=== PATIENT | male | born 1980 | race Caucasian/White ===

== ENCOUNTER 2018-09-21 16:07 | Emergency (ER) | payer OTHER ==
--- NOTE | 2018-09-21 17:12 | RAD REPORT ---
EXAM DESCRIPTION: CT - Stone Protocol - 09/21/2018 4:44 pm CLINICAL HISTORY: Abdominal pain. COMPARISON: 2011 TECHNIQUE: Computed axial tomography of the abdomen pelvis was obtained without oral or IV contrast. Lack of IV and oral contrast limits evaluation of solid organs, bowel, and vessels. Coronal reformat funmilayo images were obtained and reviewed. All CT scans are performed using dose optimization technique as appropriate and may include automated exposure control or mA/KV adjustment according to patient size. FINDINGS: A renal calculus is not seen. An ureteral calculus is not noted. A bladder calculus is not present. Fatty liver. Cholecystectomy Spleen, pancreas and adrenals appear grossly normal There is no evidence of diverticulitis. The appendix appears normal Spondylolysis L5 IMPRESSION: Negative for a genitourinary calculus
--- NOTE | 2018-09-21 17:33 | EDPHYS ---
Physician Documentation [facility] Name: Simon Sauceda Jr Age: 38 yrs Sex: Male : 1980 Arrival Date: 09/21/2018 Time: 16:11 Bed 19 Private MD: Geovani Pop H ED Physician Sergey Melendrez HPI: 09/21 16:48 This 38 yrs old Male presents to ER via Ambulatory with complaints of ps1 Abdominal Pain. 16:48 patient presenting with 2 days of flank pain. Worse this morning. Pain is dull and ps1 localized to right flank. No fever. s/p yeni remotely. Pt went to [facility] and was seen and evaluated for same and had labs done. No WBC. No UTI. Patient left because CT scanner was done and did not want to be transferred. . Historical: - Allergies: 16:22 No Known Allergies; tw2 - Home Meds: 16:22 None [Active]; tw2 - PMHx: 16:22 Enlarged Heart; Asthma; Anemia; fatty liver; Kidney stones; tw2 - PSHx: 16:22 Cholecystectomy; kidney stone; tw2 - Immunization history:: Adult Immunizations. - Social history:: Smoking status: . - Ebola Screening: : Patient denies travel to an Ebola-affected area in the 21 days before illness onset. ROS: 16:48 Constitutional: Negative for fever, chills, and weight loss, Eyes: Negative for injury, ps1 pain, redness, and discharge, Cardiovascular: Negative for chest pain, palpitations, and edema, Respiratory: Negative for shortness of breath, cough, wheezing, and pleuritic chest pain, Abdomen/GI: Negative for abdominal pain, nausea, vomiting, diarrhea, and constipation, MS/Extremity: Negative for injury and deformity, Skin: Negative for injury, rash, and discoloration, Neuro: Negative for headache, weakness, numbness, tingling, and seizure. 16:48 : Positive for flank pain. Exam: 16:48 Constitutional: This is a well developed, well nourished patient who is awake, alert, ps1 and in no acute distress. Head/Face: Normocephalic, atraumatic. Eyes: Pupils equal round and reactive to light, extra-ocular motions intact. Lids and lashes normal. Conjunctiva and sclera are non-icteric and not injected. Chest/axilla: Normal chest wall appearance and motion. Nontender with no deformity. No lesions are appreciated. Cardiovascular: Regular rate and rhythm. No gallops, murmurs, or rubs. Normal PMI, no JVD. No pulse deficits. Respiratory: Lungs have equal breath sounds bilaterally, clear to auscultation and percussion. No rales, rhonchi or wheezes noted. No increased work of breathing, no retractions or nasal flaring. Abdomen/GI: Soft, non-tender, with normal bowel sounds. No distension or tympany. No guarding or rebound. No evidence of tenderness throughout. Skin: Warm, dry with normal turgor. Normal color with no rashes, no lesions, and no evidence of cellulitis. MS/ Extremity: Pulses equal, no cyanosis. Neurovascular intact. Full, normal range of motion. Neuro: Awake and alert, GCS 15, oriented to person, place, time, and situation. Cranial nerves II-XII grossly intact. Sensory grossly intact. Psych: Awake, alert, with orientation to person, place and time. Behavior, mood, and affect are within normal limits. Vital Signs: 16:21 BP 138 / 83; Pulse 89; Resp 17; Temp 97.8; Pulse Ox 97% on R/A; Weight 106.59 kg (R); tw2 Height 5 ft. 5 in. (165.10 cm) (R); Pain 6/10; 17:46 BP 141 / 79; Pulse 79; Resp 16; Pulse Ox 98% ; bp 16:21 Body Mass Index 39.11 (106.59 kg, 165.10 cm) tw2 MDM: 16:46 Patient medically screened. ps1 17:34 Data reviewed: vital signs, nurses notes, diagnostic data from outside facility, CBC, ps1 electrolytes, urinalysis, radiologic studies, CT scan, and as a result, I will discharge patient. Counseling: I had a detailed discussion with the patient and/or guardian regarding: the historical points, exam findings, and any diagnostic results supporting the discharge/admit diagnosis, radiology results, the need for outpatient follow up. 09/21 16:31 Order name: CT Stone Protocol; Complete Time: 17:28 ps1 Administered Medications: No medications were administered Disposition: 09/21/18 17:31 Discharged to Home. Impression: flank pain. - Condition is Stable. - Discharge Instructions: Abdominal Pain, Adult. - Prescriptions for ketorolac 10 mg Oral tablet - take 1 tablet by ORAL route every 4-6 hours not to exceed 40mg in 24hrs for up to 5 days total use; 15 tablet. Robaxin 500 mg Oral Tablet - take 2 tablet by ORAL route every 6 hours As needed; 40 tablet. Medrol (Karsten) 4 mg Oral Tablets, Dose Pack - take 1 tablet by ORAL route as directed - follow package instructions; 1 packet. - Medication Reconciliation Form, Thank You Letter, Antibiotic Education, Prescription Opioid Use form. - Follow up: Geovani Pop DO; When: As needed; Reason: Recheck today's complaints, Continuance of care, Re-evaluation by your physician. Follow up: Emergency Department; When: As needed; Reason: Worsening of condition. - Problem is new. - Symptoms have improved. Signatures: Dispatcher [employer] EDMS Shannan Rubio RN RN tw2 Robi Hernandez RN RN bp Sergey Melendrez MD MD ps1 Corrections: (The following items were deleted from the chart) 17:47 17:31 09/21/2018 17:31 Discharged to Home. Impression: flank pain. Condition is Stable. bp Forms are Medication Reconciliation Form, Thank You Letter, Antibiotic Education, Prescription Opioid Use. Follow up: Geovani Pop; When: As needed; Reason: Recheck today's complaints, Continuance of care, Re-evaluation by your physician. Follow up: Emergency Department; When: As needed; Reason: Worsening of condition. Problem is new. Symptoms have improved. ps1
--- NOTE | 2018-09-21 17:33 | ER ---
Nurse's Notes [facility] Name: Simon Sauceda Jr Age: 38 yrs Sex: Male : 1980 Arrival Date: 09/21/2018 Time: 16:11 Bed 19 Private MD: Geovani Pop H Diagnosis: flank pain Presentation: 09/21 16:18 Presenting complaint: Patient states: i got a knee the stomach yesterday, the pain tw2 subsided then this morning when i woke up it was bad, then after work today it started to get worse, i went to [facility] and they pissed me off having sat there for over 2 hours and they wanted to transfer me because their CT was down, denies blood in stool or urine. Transition of care: patient was not received from another setting of care. Onset of symptoms was September 21, 2018. Risk Assessment: Do you want to hurt yourself or someone else? Patient reports no desire to harm self or others. Initial Sepsis Screen: Does the patient meet any 2 criteria? No. Patient's initial sepsis screen is negative. Does the patient have a suspected source of infection? No. Patient's initial sepsis screen is negative. Note pt eating chips and drinking in lobby, asked if he could go get his food, pt instructed no food or drinks at this time. Care prior to arrival: None. 16:18 Method Of Arrival: Ambulatory tw2 16:18 Acuity: ESTER 3 tw2 Triage Assessment: 16:21 General: Appears in no apparent distress. Behavior is calm, cooperative, appropriate tw2 for age. Pain: Complains of pain in right lower quadrant. GI: Abdomen is round non-distended, Reports lower abdominal pain, upper abdominal pain, "stabbing pain". Historical: - Allergies: 16:22 No Known Allergies; tw2 - Home Meds: 16:22 None [Active]; tw2 - PMHx: 16:22 Enlarged Heart; Asthma; Anemia; fatty liver; Kidney stones; tw2 - PSHx: 16:22 Cholecystectomy; kidney stone; tw2 - Immunization history:: Adult Immunizations. - Social history:: Smoking status: . - Ebola Screening: : Patient denies travel to an Ebola-affected area in the 21 days before illness onset. Screenin:50 Abuse screen: Denies threats or abuse. Denies injuries from another. Nutritional bp screening: No deficits noted. Tuberculosis screening: No symptoms or risk factors identified. Fall Risk None identified. Assessment: 16:25 General: Appears in no apparent distress. comfortable, Behavior is calm, cooperative, bp appropriate for age. Pain: Complains of pain in abdomen. Neuro: Level of Consciousness is awake, alert, obeys commands, Oriented to person, place, time, situation, Appropriate for age. Cardiovascular: No deficits noted. Respiratory: Airway is patent Respiratory effort is even, unlabored, Respiratory pattern is regular, symmetrical. GI: Bowel sounds present X 4 quads. Abd is soft X 4 quads. : No signs and/or symptoms were reported regarding the genitourinary system. EENT: No deficits noted. Derm: No deficits noted. Musculoskeletal: Circulation, motion, and sensation intact. Range of motion: intact in all extremities. 16:48 Reassessment: PT RETURNED FROM CT. bp 17:46 Reassessment: PT D/C HOME AMBULATORY, DX WITH FLANK PAIN. bp Vital Signs: 16:21 BP 138 / 83; Pulse 89; Resp 17; Temp 97.8; Pulse Ox 97% on R/A; Weight 106.59 kg (R); tw2 Height 5 ft. 5 in. (165.10 cm) (R); Pain 6/10; 17:46 BP 141 / 79; Pulse 79; Resp 16; Pulse Ox 98% ; bp 16:21 Body Mass Index 39.11 (106.59 kg, 165.10 cm) tw2 ED Course: 16:11 Patient arrived in ED. mr 16:11 Geovani Pop DO is Private Physician. mr 16:21 Triage completed. tw2 16:21 Arm band placed on. tw2 16:27 Sergey Melendrez MD is Attending Physician. ps1 16:35 Robi Hernandez, LEIGH is Primary Nurse. bp 16:43 CT completed. Patient tolerated procedure well. Patient moved to CT. Patient moved back nj from CT. 16:44 CT Stone Protocol In Process Unspecified. EDMS 16:50 Patient has correct armband on for positive identification. Bed in low position. Call bp light in reach. Side rails up X2. 17:31 Geovani Pop DO is Referral Physician. ps1 17:46 No provider procedures requiring assistance completed. Patient did not have IV access bp during this emergency room visit. Administered Medications: No medications were administered Outcome: 17:31 Discharge ordered by . ps1 17:46 Discharged to home ambulatory. bp 17:46 Condition: stable 17:46 Discharge instructions given to patient, Instructed on discharge instructions, follow up and referral plans. medication usage, Demonstrated understanding of instructions, follow-up care, medications, Prescriptions given X 3. 17:47 Patient left the ED. bp Signatures: Dispatcher [employer] EDIA Adry Garcia Tara, RN RN tw2 Eriberto Pandya Brian RN RN bp Sergey Melendrez MD MD ps1
[2018-09-21 18:00] VITALS: TEMP 97.8
[2018-09-21 18:01] VITALS: BP 141/79; O2SAT 98
== END 2018-09-21 17:47 | disposition home or self-care (01) ==
LOC: ER 16:07
DX: R10.9 Unspecified abdominal pain (principal); Z87.442 Personal history of urinary calculi
CPT/HCPCS: 74176; 76377; 99284

== ENCOUNTER 2020-03-01 20:39 | Emergency (ER) | payer OTHER ==
[2020-03-01] MEDS ORDERED: TETANUS & DIPHTHERIA TOX,ADULT 0.5 ML VIAL ONE (21:15)
[2020-03-01] MEDS ORDERED: HYDROCODONE/APAP 7.5/325 MG TAB ONE (21:15)
[2020-03-01] MEDS ORDERED: LIDOCAINE 1% 20 ML MDV ONE (21:15)
--- NOTE | 2020-03-01 21:32 | ER ---
Nurse's Notes [facility] Name: Simon Sauceda Jr Age: 39 yrs Sex: Male : 1980 Arrival Date: 03/01/2020 Time: 20:44 Bed 17 Private MD: Diagnosis: Laceration with foreign body of foot-FB removed Presentation: 03/01 20:50 Chief complaint: Patient states: [facility] when sg something metal went in between my sandal and my foot. Coronavirus screen: Client denies travel out of the [place] in the last 14 days. At this time, the client does not indicate any symptoms associated with coronavirus-19. Ebola Screen: Patient negative for fever greater than or equal to 101.5 degrees Fahrenheit, and additional compatible Ebola Virus Disease symptoms Patient denies exposure to infectious person. Patient denies travel to an Ebola-affected area in the 21 days before illness onset. No symptoms or risks identified at this time. Complicating Factors: There are no complicating factors for this patient. Initial Sepsis Screen: Does the patient meet any 2 criteria? No. Patient's initial sepsis screen is negative. Does the patient have a suspected source of infection? No. Patient's initial sepsis screen is negative. Risk Assessment: Do you want to hurt yourself or someone else? Patient reports no desire to harm self or others. Onset of symptoms was March 01, 2020. Care prior to arrival: None. Mechanism of Injury: Laceration sustained at home, while doing yard work, from metal object, Injury was accidental. Transition of care: patient was not received from another setting of care. 20:50 Method Of Arrival: Ambulatory sg 20:50 Acuity: ESTER 4 sg Historical: - Allergies: 20:52 No Known Allergies; sg - PMHx: 20:52 Anemia; Asthma; Enlarged Heart; fatty liver; Kidney stones; sg - PSHx: 20:52 Cholecystectomy; kidney stone; sg - Immunization history:: Adult Immunizations up to date, Last tetanus immunization: > 10 years ago. - Social history:: Smoking status: Patient denies any tobacco usage or history of. Screenin:26 Abuse screen: Denies threats or abuse. Nutritional screening: No deficits noted. fu Tuberculosis screening: No symptoms or risk factors identified. Fall Risk None identified. Assessment: 20:47 General: Appears in no apparent distress. Behavior is calm, cooperative, appropriate fu for age, Denies fever, feeling ill, fatigue, chills. Pain: Complains of pain in left foot and ball of left foot Pain does not radiate. Pain currently is 7 out of 10 on a pain scale. Quality of pain is described as throbbing. Neuro: Level of Consciousness is awake, alert, obeys commands, Oriented to person, place, time, situation, Artificial Stone Setter are equal bilaterally Moves all extremities. Gait is steady, Speech is normal, Facial symmetry appears normal. Cardiovascular: Denies nausea, syncope, vomiting. Respiratory: Airway is patent Denies cough, shortness of breath. GI: No signs and/or symptoms were reported involving the gastrointestinal system. : No signs and/or symptoms were reported regarding the genitourinary system. Musculoskeletal: Reports pain in left foot and ball of left foot. Injury Description: Laceration is clean, 0.5 to 2.5 cm long, not bleeding. Vital Signs: 21:30 BP 114 / 75; Pulse 78; Resp 18; Temp 98; Pulse Ox 99% on R/A; Pain 6/10; fu ED Course: 20:44 Patient arrived in ED. ag3 20:46 Amelia Lopez FNP-C is [facility]. kb 20:46 Conrado Ramos MD is Attending Physician. kb 20:47 Sam Arias, LEIGH is Primary Nurse. fu 20:52 Triage completed. sg 20:52 Arm band placed on. sg 21:26 Patient has correct armband on for positive identification. Bed in low position. Call fu light in reach. Side rails up X 1. Pulse ox on. NIBP on. 21:26 Assist provider with laceration repair on ball of left foot that was 2.5 cm. or less fu using sutures. Set up tray. Performed by Amelia PARRA Dressed with Patient tolerated well. 21:40 Patient did not have IV access during this emergency room visit. fu Administered Medications: 21:10 Drug: [place] (7.5 mg-325 mg) 1 tabs Route: PO; fu 21:15 Follow up: Response: No adverse reaction fu 21:16 Drug: Tetanus-Diphtheria Toxoid Adult 0.5 ml {Leather Cartridge Belt Maker: [employer]. Exp: fu 07/27/2022. Lot #: [id number]. } Route: IM; Site: right deltoid; 21:30 Follow up: Response: Pain is decreased fu 21:25 Drug: Lidocaine (1 %) 1 vials {Note: administered by GAME ENGINEER.} Volume: 20 ml; Route: fu Infiltration; 21:30 Follow up: Response: No adverse reaction fu Outcome: 21:32 Discharge ordered by MD. springer 21:46 Discharged to home ambulatory. fu 21:47 Condition: stable fu 21:47 Discharge instructions given to patient, Instructed on discharge instructions, Demonstrated understanding of instructions, follow-up care. 21:48 Patient left the ED. fu Signatures: Amelia Lopez, SHELL SORTER-C SHELL SORTER-Alessandro Cardenas RN LEIGH Sam Arias, RN RN Tonia Cobb ag3
--- NOTE | 2020-03-01 21:32 | EDPHYS ---
Physician Documentation [facility] Name: Simon Sauceda Jr Age: 39 yrs Sex: Male : 1980 Arrival Date: 03/01/2020 Time: 20:44 Bed 17 Private MD: ED Physician Conrado Ramos HPI: 03/01 20:55 This 39 yrs old Male presents to ER via Ambulatory with complaints of kb Laceration To Foot. 20:55 The patient has a laceration related to: stepped on a piece of metal outside occurred kb outdoors, and there are no complicating factors. The injury was accidental. The laceration(s) is(are) located on the ball of left foot. Onset: The symptoms/episode began/occurred just prior to arrival. Associated signs and symptoms: The patient has no apparent associated signs or symptoms. The patient has not experienced similar symptoms in the past. The patient has not recently seen a physician. Historical: - Allergies: 20:52 No Known Allergies; sg - PMHx: 20:52 Anemia; Asthma; Enlarged Heart; fatty liver; Kidney stones; sg - PSHx: 20:52 Cholecystectomy; kidney stone; sg - Immunization history:: Adult Immunizations up to date, Last tetanus immunization: > 10 years ago. - Social history:: Smoking status: Patient denies any tobacco usage or history of. ROS: 20:55 Constitutional: Negative for fever, chills, and weight loss, Cardiovascular: Negative kb for chest pain, palpitations, and edema, Respiratory: Negative for shortness of breath, cough, wheezing, and pleuritic chest pain, Abdomen/GI: Negative for abdominal pain, nausea, vomiting, diarrhea, and constipation, Back: Negative for injury and pain, MS/Extremity: Negative for injury and deformity, Neuro: Negative for headache, weakness, numbness, tingling, and seizure. 20:55 Skin: Positive for laceration(s), of the ball of left foot. Exam: 20:55 Constitutional: This is a well developed, well nourished patient who is awake, alert, kb and in no acute distress. Head/Face: Normocephalic, atraumatic. Chest/axilla: Normal chest wall appearance and motion. Nontender with no deformity. No lesions are appreciated. Cardiovascular: Regular rate and rhythm with a normal S1 and S2. No gallops, murmurs, or rubs. Normal PMI, no JVD. No pulse deficits. Respiratory: Lungs have equal breath sounds bilaterally, clear to auscultation and percussion. No rales, rhonchi or wheezes noted. No increased work of breathing, no retractions or nasal flaring. Abdomen/GI: Soft, non-tender, with normal bowel sounds. No distension or tympany. No guarding or rebound. No evidence of tenderness throughout. MS/ Extremity: Pulses equal, no cyanosis. Neurovascular intact. Full, normal range of motion. Neuro: Awake and alert, GCS 15, oriented to person, place, time, and situation. Cranial nerves II-XII grossly intact. Motor strength 5/5 in all extremities. Sensory grossly intact. Cerebellar exam normal. Normal gait. 20:55 Skin: injury, laceration(s), the wound is approximately 3 cm(s), of the ball of left foot, that can be described as clean, no foreign body, linear, without bleeding. Vital Signs: 21:30 BP 114 / 75; Pulse 78; Resp 18; Temp 98; Pulse Ox 99% on R/A; Pain 6/10; fu Laceration: 21:30 Wound Repair of 3cm ( 1.2in ) subcutaneous laceration to ball of left foot. Irregularly kb shaped.. Distal neuro/vascular/tendon intact. Anesthesia: Wound infiltrated with 2 mls of 1% lidocaine. Wound prep: Extensive cleansing with hibiclenz by me, Wound irrigation with saline by me, Particulate matter removal of grass of metal by me, Wound explored. Skin closed with 3 4-0 Prolene using simple sutures and sterile technique. Dressed with Neosporin, bandaid. Patient tolerated well. MDM: 20:46 Patient medically screened. kb 20:54 Data reviewed: vital signs, nurses notes. Data interpreted: Pulse oximetry: on room air kb is 100 %. Interpretation: normal. Counseling: I had a detailed discussion with the patient and/or guardian regarding: the historical points, exam findings, and any diagnostic results supporting the discharge/admit diagnosis, the need for outpatient follow up, a family practitioner, to return to the emergency department if symptoms worsen or persist or if there are any questions or concerns that arise at home. 03/01 20:50 Order name: Prolene, Sutures; Complete Time: 21:36 kb 03/01 20:50 Order name: Dressing - Wound; Complete Time: 21:35 kb 03/01 20:50 Order name: Gloves, Sterile; Complete Time: 21:35 kb 03/01 20:50 Order name: Setup Suture Tray; Complete Time: 21:35 kb Administered Medications: 21:10 Drug: Villanueva (7.5 mg-325 mg) 1 tabs Route: PO; fu 21:15 Follow up: Response: No adverse reaction fu 21:16 Drug: Tetanus-Diphtheria Toxoid Adult 0.5 ml {Fingerprint Technician: [facility]. Exp: fu 07/27/2022. Lot #: [id number]. } Route: IM; Site: right deltoid; 21:30 Follow up: Response: Pain is decreased fu 21:25 Drug: Lidocaine (1 %) 1 vials {Note: administered by FILTER PLANT OPERATOR.} Volume: 20 ml; Route: fu Infiltration; 21:30 Follow up: Response: No adverse reaction Disposition: 03/02 06:29 Co-signature as Attending Physician, Conrado Ramos MD I agree with the assessment and tw4 plan of care. Disposition: 03/01/20 21:32 Discharged to Home. Impression: Laceration with foreign body of foot - FB removed. - Condition is Stable. - Discharge Instructions: Laceration Care, Adult, [id number]. - Work release form, Medication Reconciliation Form, Thank You Letter, Antibiotic Education, Prescription Opioid Use form. - Follow up: Emergency Department; When: As needed; Reason: Worsening of condition. Follow up: Private Physician; When: 2 - 3 days; Reason: Recheck today's complaints, Continuance of care, Re-evaluation by your physician. Signatures: Amelia Lopez, RESTAURANT OPERATIONS MANAGER-C RESTAURANT OPERATIONS MANAGER-Alessandro Cardenas RN RN Sam Arias RN RN fu Wadley, Terrence, MD MD tw4 Corrections: (The following items were deleted from the chart) 03/01 20:57 20:55 The patient has a laceration related to: stepped on something outside occurred kb outdoors, and there are no complicating factors. The injury was accidental, kb 21:48 21:32 03/01/2020 21:32 Discharged to Home. Impression: Laceration with foreign body of fu foot - FB removed. Condition is Stable. Forms are Medication Reconciliation Form, Thank You Letter, Antibiotic Education, Prescription Opioid Use. Follow up: Emergency Department; When: As needed; Reason: Worsening of condition. Follow up: Private Physician; When: 2 - 3 days; Reason: Recheck today's complaints, Continuance of care, Re-evaluation by your physician. kb
[2020-03-01 21:55] VITALS: BP 114/75; TEMP 98; O2SAT 99
--- OUTSIDE RECORDS SUMMARY | 2020-03-02 05:32 | XMS REPORT | Summary of Care ---
:[address] [facility] Address [address] [place] [id number] Care Team Providers Name Role Phone Donn Primary Care Provider Encounter Details Date Type Department Care Team Description 12/06/2019 Laboratory Only [facility] Extended Unknown, Attendin g Screening for viral Hours and Walk-in Only, Web Test disease (Primary Dx) Clinic, [address] [address], [address] [place] [address] Allergies No Known Allergiesdocumented as of this encounter (statuses as of 12/06/2019) Medications Medication Sig Dispensed Refills Start Date End Date Status trazodone HCl (TRAZODONE Take by mouth. 0 Active ORAL) documented as of this encounter (statuses as of 12/06/2019) Active Problems Problem Noted Date Obesity (BMI 30-39.9) 07/14/2016 documented as of this encounter (statuses as of 12/06/2019) Social History Tobacco Use Types Packs/Day Years Used Date Never Smoker Sex Assigned at Date Recorded Not on file Job Start Date Occupation Industry Not on file Not on file Not on file Travel History Travel Start Travel End No recent travel history available. documented as of this encounter Last Filed Vital Signs Not on filedocumented in this encounter Plan of Treatment Name Type Priority Associated Diagnoses Date/Ti me COVID-19 (PCR MOLECULAR LAB Routine Screening for vir al 12/06/2019 9:49 AM CDT TESTING) disease Name Type Priority Associated Diagnoses Order S chedule COVID-19 (PCR MOLECULAR LAB Routine Screening for vir al Expected: 12/06/2019, TESTING) disease Expires: 2020 Health Maintenance Due Date Last Done Comments DTaP,Tdap,and Td Vaccines (1 - 1991 Tdap) Depression Screening 1992 INFLUENZA VACCINE (#1) 2020 PNEUMOCOCCAL 0-64 YEARS COMBINED Aged Out No longer eligible based on SERIES patient's age to complete this topic documented as of this encounter Results Not on filedocumented in this encounter Visit Diagnoses Diagnosis Screening for viral disease - Primary Special screening examination for unspec ified viral disease documented in this encounter Additional Health Concerns Infection Onset Date Last Indicated Resolved Time COVID-19 Rule Out 12/06/2019 12/06/2019 documented as of this encounter [phone] (Work) documented as of this encounter
--- OUTSIDE RECORDS SUMMARY | 2020-03-02 05:32 | XMS REPORT | Summary of Care ---
:1980 Author Organization [facility] Address [address] [place] [address] Care Team Providers Name Role Phone Donn Primary Care Provider Encounter Details Date Type Department Care Team Description 12/06/2019 Laboratory Only [facility] Extended Unknown, Attendin g Screening for viral disease (Primary Dx); Hours and Walk-in Only, Web Test [facility] [facility] [address] [place] [address] Allergies No Known Allergiesdocumented as of this encounter (statuses as of 02/15/2020) Medications Medication Sig Dispensed Refills Start Date End Date Status trazodone HCl (TRAZODONE Take by mouth. 0 Active ORAL) documented as of this encounter (statuses as of 02/15/2020) Active Problems Problem Noted Date Obesity (BMI 30-39.9) 07/14/2016 documented as of this encounter (statuses as of 02/15/2020) Social History Tobacco Use Types Packs/Day Years Used Date Never Smoker Sex Assigned at Date Recorded Not on file documented as of this encounter Last Filed Vital Signs Not on filedocumented in this encounter Plan of Treatment Health Maintenance Due Date Last Done Comments Depression Screening 1992 DTaP,Tdap,and Td Vaccines (1 - 1999 Tdap) INFLUENZA VACCINE (#1) 2020 PNEUMOCOCCAL 0-64 YEARS COMBINED Aged Out No longer eligible based on SERIES patient's age to complete this topic documented as of this encounter Procedures Procedure Name Priority Date/Time Associated Diagnosis Comme nts COVID-19 (PCR Routine 12/06/2019 9:49 AM Screening for viral Results for this MOLECULAR TESTING) CDT disease procedure are in the results section. documented in this encounter Results COVID-19 (PCR MOLECULAR TESTING) (12/06/2019 9:49 AM CDT) Pathologist Sig nature SARS-CoV-2 PCR Not Detected Not Detected [facility] Specimen Swab - NASOPHARYNGEAL SWAB Narrative Performed At Disclaimer: [facility] This test was developed and its performance characteristics determined by [facility]. It has not been cleared or approved by the US Food and Drug Administration (FDA). An Emergency Us e Authorization (EUA) application is under review for FD A approval. This test is used for clinical purposes. It should not be regarded as investigational or for research. This laboratory is certified under the Clinical Laboratory Improvement Amendments (CLIA) as qualified to perform high complexity clinical laboratory testing. Not Detected: A negative result does not preclude COVID-19 infection and should not be used as the sole basis for treatment or other patient management decisions. Negative result s must be combined with clinical observations, patient history, and epidemiological information . Positive: The results are provided to [facility]/CDC for tracking purposes. Invalid: Please collect a new specimen for repeat patient testing. Performing Organization Address City/State/Zipcode Phone Number [facility] CLIA: [id number] [place] [address] documented in this encounter Visit Diagnoses Diagnosis Screening for viral disease - Primary Special screening examination for unspec ified viral disease Exposure to viral disease Contact with or exposure to other viral diseases documented in this encounter Additional Health Concerns Infection Onset Date Last Indicated Resolved Time COVID-19 Rule Out 12/06/2019 12/06/2019 12/08/2019 7: 53 PM CDT documented as of this encounter [phone] (Work) documented as of this encounter
== END 2020-03-01 21:48 | disposition home or self-care (01) ==
LOC: ER 20:39
PROC: 0JQR0ZZ Repair Left Foot Subcutaneous Tissue and Fascia, Open Approach (ICD-10-PCS; principal; 2020-03-01)
DX: S91.322A Laceration with foreign body, left foot, initial encounter (principal); W26.8XXA Contact with other sharp object(s), not elsewhere classified, initial encounter; Y93.01 Activity, walking, marching and hiking; Y92.007 Garden or yard of unspecified non-institutional (private) residence as the place of occurrence of the external cause; Z23 Encounter for immunization
CPT/HCPCS: 90471; 90714; 99283

== ENCOUNTER 2021-11-27 12:18 | Emergency (ER) | payer SELFPAY ==
[2021-11-27 13:43] LABS: Absolute Lymphocytes (CBC) 2.7 K/uL (0.7-4.9); Lymphocytes % 32.4 % (15.3-44.8); MCV 91.1 fL (80-100); MPV 9.3 fL (7.6-11.3); RBC Red Blood Cell Count 4.84 M/uL (4.33-5.43)
--- NOTE | 2021-11-27 13:43 | RAD REPORT ---
EXAM DESCRIPTION: CT - Stone Protocol - 11/27/2021 1:34 pm CLINICAL HISTORY: Flank pain. r/o R renal stone COMPARISON: Stone Protocol dated 09/21/2018 TECHNIQUE: Axial images were obtained without oral or IV contrast. Lack of contrast limits solid org an and vascular assessment. The oxsii-[id number] spans the entirety of the system partially obscuring uppermost abdomen and lung bases. Coronal reformatted images were obtained and reviewed. All CT scans are performed using dose optimization technique as appropriate and may include automated exposure control or mA/KV adjustment according to patient size. FINDINGS: The lower lung waldrop are clear. Fatty liver.Spleen is unremarkable. Cholecystectomy. The pancreas and adrenal glands are normal. No p athologic lymphadenopathy in the abdomen or pelvis. No urinary tract stones or obstructive uropathy. No bowel obstruction, free air, free fluid or abscess. Normal appendix noted. Bilateral spondylolysis L5-S1. IMPRESSION: No urinary tract stones or obstructive uropathy.
[2021-11-27 14:21] LABS: Albumin 3.7 g/dL (3.4-5.0); Bilirubin Total 0.3 mg/dL (0.2-1.0); Potassium 3.6 mmol/L (3.5-5.1); Protein, Total 7.1 g/dL (6.4-8.2)
[2021-11-27 15:15] LABS: Urine Blood Negative (Negative); Urine Glucose 1+ (Negative); Urine Protein 1+ (Negative); Urine Specific Gravity 1.025 (1.005-1.030)
[2021-11-27 15:42] LABS: Urine Amorphous Sediment 1+ /HPF (NONE SEEN); Urine Bacteria <20 /HPF (NONE SEEN); Urine Mucus HEAVY /HPF (NONE SEEN); Urine RBC <5 /HPF (NONE SEEN)
[2021-11-27 15:43] LABS: Calcium Oxalate Crystals- Ur MODERATE (NONE SEEN)
--- NOTE | 2021-11-27 15:48 | ER ---
Nurse's Notes [facility] Name: Simon Sauceda Jr Age: 41 yrs Sex: Male : 1980 Arrival Date: 11/27/2021 Time: 12:20 Bed 13 Private MD: Diagnosis: Lumbar Strain Presentation: 11/27 12:43 Chief complaint: Patient states: Intermittent R flank pain x 1 week that got worse ss while at work today. Coronavirus screen: Client denies travel out of the [place] in the last 14 days. Ebola Screen: Patient denies exposure to infectious person. Patient denies travel to an Ebola-affected area in the 21 days before illness onset. Initial Sepsis Screen: Does the patient meet any 2 criteria? No. Patient's initial sepsis screen is negative. Does the patient have a suspected source of infection? No. Patient's initial sepsis screen is negative. Risk Assessment: Do you want to hurt yourself or someone else? Patient reports no desire to harm self or others. Onset of symptoms was November 20, 2021. 12:43 Method Of Arrival: Ambulatory ss 12:43 Acuity: ESTER 3 ss Triage Assessment: 15:45 General: Appears uncomfortable, Behavior is calm, cooperative. jg9 15:45 Pain: Complains of pain in back-left flank. jg9 Historical: - Allergies: 12:44 No Known Allergies; ss - PMHx: 12:44 Anemia; Asthma; Enlarged Heart; fatty liver; Kidney stones; Hypertensive disorder; ss - PSHx: 12:44 Cholecystectomy; ss - Immunization history:: Client reports receiving the 2nd dose of the Covid vaccine. - Social history:: Smoking status: Patient denies any tobacco usage or history of. Screenin:45 Abuse screen: Denies threats or abuse. Denies injuries from another. Nutritional jg9 screening: No deficits noted. Tuberculosis screening: No symptoms or risk factors identified. Fall Risk None identified. Assessment: 15:44 Reassessment: No changes from previously documented assessment. Patient and/or family jg9 updated on plan of care and expected duration. Pain level reassessed. patient refusing medications and wants to go home. Vital Signs: 12:43 BP 130 / 89; Pulse 97; Resp 18; Temp 98.0(TE); Pulse Ox 99% on R/A; Weight 111.13 kg; Height 5 ft. 5 in. (165.10 cm); Pain 3/10; 12:43 Body Mass Index 40.77 (111.13 kg, 165.10 cm) ED Course: 12:20 Patient arrived in ED. as 12:44 Triage completed. 12:45 Arm band placed on right wrist. 12:50 Sum[facility] Ba FNP [facility] 12:50 Chucky Tarango MD is Attending Physician. [facility] 13:33 Inserted saline lock: 20 gauge in left antecubital area, using aseptic technique. Blood zm collected. 13:34 CBC with Diff Sent. zm 13:34 CMP Sent. zm 13:34 Lipase Sent. 13:36 CT Stone Protocol In Process Unspecified. EDTX 15:38 Sumaya Santana, RN is Primary Nurse. jg9 15:45 Patient has correct armband on for positive identification. Bed in low position. Call jg9 light in reach. Side rails up X 1. 15:45 No provider procedures requiring assistance completed. jg9 16:00 IV discontinued. jg9 Administered Medications: 15:44 Not Given (Patient Refused): NS 0.9% 1000 ml IV at 1 bolus Per protocol; 1000 mL bolus jg9 15:44 Not Given (Patient Refused): Zofran (Ondansetron) 4 mg IVP once; over 2 minutes jg9 15:44 Not Given (Patient Refused): morphine 4 mg IVP once over 4 mins jg9 Medication: 15:45 VIS not applicable for this client. jg9 Outcome: 15:47 Discharge ordered by . 7 16:00 Discharged to home ambulatory. jg9 16:00 Condition: stable 16:00 Discharge instructions given to patient, Instructed on discharge instructions, follow up and referral plans. Demonstrated understanding of instructions, follow-up care, Prescriptions given X 3. 16:02 Patient left the ED. jg9 Signatures: Dispatcher [employer] EDTX Yanet Sommers Shelby, RN RN Sumaya Santana, RN RN jg9 Fernanda Sommers Sumaya Ba FNP FNP [facility] Corrections: (The following items were deleted from the chart) 12:45 12:43 BP 130 / 89; Pulse 97bpm; Resp 18bpm; Pulse Ox 99% RA; Temp 98.0F Temporal; ss 111.13 kg; Height 5 ft. 5 in.; BMI: 40.7; Pain 3/10; ss 12:46 12:43 BP 130 / 80; Pulse 97bpm; Resp 18bpm; Pulse Ox 99% RA; Temp 98.0F Temporal; ss 111.13 kg; Height 5 ft. 5 in.; BMI: 40.7; Pain 3/10; ss 16:01 15:44 Reassessment: No changes from previously documented assessment. Patient and/or jg9 family updated on plan of care and expected duration. Pain level reassessed. jg9 16: 15:44 Pain: 9 j9
--- NOTE | 2021-11-27 15:48 | EDPHYS ---
Physician Documentation [facility] Name: Simon Sauceda Jr Age: 41 yrs Sex: Male : 1980 Arrival Date: 11/27/2021 Time: 12:20 Bed 13 Private MD: ED Physician Chucky Tarango HPI: 11/27 13:00 This 41 yrs old Male presents to ER via Ambulatory with complaints of Flank Pain. jh7 13:00 The patient complains of pain in the right low back. 41-year-old male complains of jh7 right flank pain for the past 5 days. States that he has a history of renal stones and wants to ensure he does not have another stone. Denies any urinary symptoms at this time. Also reports that he possibly strained his back at work.. Historical: - Allergies: 12:44 No Known Allergies; ss - PMHx: 12:44 Anemia; Asthma; Enlarged Heart; fatty liver; Kidney stones; Hypertensive disorder; ss - PSHx: 12:44 Cholecystectomy; ss - Immunization history:: Client reports receiving the 2nd dose of the Covid vaccine. - Social history:: Smoking status: Patient denies any tobacco usage or history of. ROS: 13:00 Constitutional: Negative for fever, chills, and weight loss, Neck: Negative for injury, jh7 pain, and swelling, Cardiovascular: Negative for chest pain, palpitations, and edema, Respiratory: Negative for shortness of breath, cough, wheezing, and pleuritic chest pain, Abdomen/GI: Negative for abdominal pain, nausea, vomiting, diarrhea, and constipation, Skin: Negative for injury, rash, and discoloration, Neuro: Negative for headache, weakness, numbness, tingling, and seizure. 13:00 : Positive for flank pain, Negative for urinary symptoms. 13:00 All other systems are negative. Exam: 13:00 Constitutional: This is a well developed, well nourished patient who is awake, alert, jh7 and in no acute distress. ENT: Nares patent. No nasal discharge, no septal abnormalities noted. Tympanic membranes are normal and external auditory canals are clear. Oropharynx with no redness, swelling, or masses, exudates, or evidence of obstruction, uvula midline. Mucous membranes moist. Neck: Trachea midline, no thyromegaly or masses palpated, and no cervical lymphadenopathy. Supple, full range of motion without nuchal rigidity, or vertebral point tenderness. No Meningismus. Cardiovascular: Regular rate and rhythm with a normal S1 and S2. No gallops, murmurs, or rubs. Normal PMI, no JVD. No pulse deficits. Respiratory: Lungs have equal breath sounds bilaterally, clear to auscultation and percussion. No rales, rhonchi or wheezes noted. No increased work of breathing, no retractions or nasal flaring. Abdomen/GI: Soft, non-tender, with normal bowel sounds. No distension or tympany. No guarding or rebound. No evidence of tenderness throughout. Skin: Warm, dry with normal turgor. Normal color with no rashes, no lesions, and no evidence of cellulitis. MS/ Extremity: Pulses equal, no cyanosis. Neurovascular intact. Full, normal range of motion. Neuro: Awake and alert, GCS 15, oriented to person, place, time, and situation. Motor strength 5/5 in all extremities. Sensory grossly intact. Normal gait. 13:00 Back: CVA tenderness, that is moderate, is noted on the right. Vital Signs: 12:43 BP 130 / 89; Pulse 97; Resp 18; Temp 98.0(TE); Pulse Ox 99% on R/A; Weight 111.13 kg; ss Height 5 ft. 5 in. (165.10 cm); Pain 3/10; 12:43 Body Mass Index 40.77 (111.13 kg, 165.10 cm) MDM: 15:30 Differential diagnosis: nephrolithiasis, pyelonephritis, UTI. Data reviewed: vital [facility] signs, nurses notes, lab test result(s), radiologic studies, CT scan. Data interpreted: Pulse oximetry: is 99 %. Interpretation: normal. 15:30 Counseling: I had a detailed discussion with the patient and/or guardian regarding: the [facility] historical points, exam findings, and any diagnostic results supporting the discharge/admit diagnosis, to return to the emergency department if symptoms worsen or persist or if there are any questions or concerns that arise at home. ED course: Patient declined any medication because he stated he had to drive home. Requested prescription for pain so that he can take it at home. Reviewed the patient's urine, labs, and CT scan. Informed him that he did not have a renal stone and likely strained his back. Informed him that if his symptoms become severe, or he develops any new concerning symptoms, he may return to the ER for further eval. The patient understood the plan of care.. 15:34 Patient medically screened. [facility] 11/27 12:51 Order name: CBC with Diff; Complete Time: 14:52 [facility] 11/27 12:51 Order name: CMP; Complete Time: 14:52 [facility] 11/27 12:51 Order name: Lipase; Complete Time: 14:52 [facility] 11/27 12:51 Order name: Urine Microscopic Only; Complete Time: 18:53 [facility] 11/27 12:51 Order name: CT Stone Protocol; Complete Time: 14:52 [facility] 11/27 15:16 Order name: Urine Dipstick-Ancillary; Complete Time: 15:27 EDAR 11/27 12:51 Order name: IV Saline Lock; Complete Time: 13:34 [facility] 11/27 12:51 Order name: Labs collected and sent; Complete Time: 13:34 [facility] 11/27 12:51 Order name: Urine Dipstick-Ancillary (obtain specimen); Complete Time: 15:38 [facility] Administered Medications: 15:44 Not Given (Patient Refused): NS 0.9% 1000 ml IV at 1 bolus Per protocol; 1000 mL bolus jg9 15:44 Not Given (Patient Refused): Zofran (Ondansetron) 4 mg IVP once; over 2 minutes jg9 15:44 Not Given (Patient Refused): morphine 4 mg IVP once over 4 mins jg9 Disposition: 19:11 Co-signature as Attending Physician, Chucky Tarango MD I agree with the assessment and kdr plan of care. Disposition Summary: 11/27/21 15:47 Discharge Ordered Location: Home [facility] Problem: new [facility] Symptoms: are unchanged [facility] Condition: Stable [facility] Diagnosis - Lumbar Strain [facility] Followup: [facility] - With: Private Physician - When: 2 - 3 days - Reason: Recheck today's complaints Discharge Instructions: - Form - Return To Work jg9 - Discharge Summary Sheet [facility] - Back Exercises [facility] - Lumbar Strain [facility] Forms: - Medication Reconciliation Form [facility] - Thank You Letter [facility] - Prescription Opioid Use [facility] Prescriptions: - Naprosyn 500 mg Oral Tablet - take 1 tablet by ORAL route 2 times per day take with food; 30 tablet; Refills: jh7 0, Product Selection Permitted - Zanaflex 4 mg Oral Tablet - take 1 tablet by ORAL route every 8 hours As needed; 20 tablet; Refills: 0, jh7 Product Selection Permitted - Tramadol 50 mg Oral Tablet - take 1 tablet by ORAL route every 8 hours as needed; 12 tablet; Refills: 0, jh7 Product Selection Permitted Signatures: Dispatcher [employer] Chucky Gee MD MD [facility] Rowan Contreras RN RN ss Sumaya Ba, [employer]SERV[employer] ENGINEER [employer]ATION ENGINEER 7 Sumaya Santana RN jg9
[2021-11-27 16:24] VITALS: BP 130/89; TEMP 98; O2SAT 99
== END 2021-11-27 16:02 | disposition home or self-care (01) ==
LOC: ER 12:18
DX: S39.012A Strain of muscle, fascia and tendon of lower back, initial encounter (principal); I10 Essential (primary) hypertension
CPT/HCPCS: 36415; 74176; 76377; 80053; 81003; 81015; 83690; 85025

== ENCOUNTER 2022-08-06 13:24 | Emergency (ER) | payer SELFPAY ==
--- OUTSIDE RECORDS SUMMARY | 2022-08-06 13:29 | XMS REPORT | Continuity of Care Document ---
:1980 Author Organization [facility] t Address [address] [place] [address] [place] [id number] Care Team Providers Name Role Phone Pcp, Patient Does Not Have A Primary Care Physician [phone] Lana SCHWAB Attending Clinician Unavailable Lana Latham Attending Clinician KAILEE MELENDREZ Attending Clinician Unavailable Kailee Melendrez DO Attending Clinician Eunice Silva Attending Clinician EUNICE ROWLEY Attending Clinician Unavailable Doctor Unassigned, [place] Attending Clinician Unavailable Cora Vásquez Attending Clinician Unknown, Attending Attending Clinician Unavailable UNKNOWN, ATTENDING Attending Clinician Unavailable Pcp, Patient Does Not Have A Attending Clinician [phone] MATRHA LOUISE Attending Clinician Unavailable Only, Ang Db Test Attending Clinician Unavailable Martha Louise MD Attending Clinician Tran Tobin MD Attending Clinician Only, Web Test Attending Clinician Unavailable Lana SCHWAB Admitting Clinician Unavailable KAILEE MELENDREZ Admitting Clinician Unavailable EUNICE ROWLEY Admitting Clinician Unavailable Payers Payer Name Policy Type Policy Number Effective Date Expiration Date S ource Problems Condition Condition Condition Status Onset Resolution Last Treating Co mments Source Name Details Category Date Date Treatment Clinician Date Obesity Obesity Disease Recurre Univer s (BMI (BMI nce 2-20 ity of 30-39.9) 30-39.9) 00:00: [address] Allergies, Adverse Reactions, Alerts Allergy Allergy Status Severity Reaction(s) Onset Inactive Treating Comm ents Source Name Type Date Date Clinician NO KNOWN Drug Active Univers ALLERGIE Class ity of S [facility] Social History Social Habit Start Date Stop Date Quantity Comments Source Exposure to 2022-03-21 2022-03-31 Not sure [facility] SARS-CoV-2 00:00:00 12:34:00 [facility] (event) [place] Tobacco use and 2021-02-22 2021-02-22 Smokeless tobacco Un iversity of exposure 00:00:00 00:00:00 non-user [facility] Sex Assigned At [birth year] Universit y of 00:00:00 00:00:00 [facility] Smoking Status Start Date Stop Date Source Unknown [facility] Never smoked tobacco [facility] Medications Ordered Filled Start Stop Current Ordering Indication Dosage Frequency Signature Comments Components Source Medication Medication Date Date Medication? Clinician (SIG) Name Name doxycycline 2021-05 No 100mg 100 mg, U nivers hyclate 05-31 Oral, ity of (Vibramycin 22:15: 22[place]19 [place] capsule 00 :00 dose, On Medica l 100 mg [facility] 03/31/22 at 1615, GERA
Re ason for Anti-Infec tive: Documented Infection< br>Documen funmilayo Infection Site: Urine
D uration of Therapy: 10 days cefTRIAXone 2021-05 No 500mg 500 mg, IV Univers (ROCEPHIN) 05-31 Piggyback, it y of 500 mg in 22:15: 22:29 [place] NaCl 0.9% 00 :00 dose, On Medica l (NS) 100 mL [facility] piggyback 03/31/22 at 1615, Administer over 30 Minutes, 100 mL
R kyle for Anti-Infec tive: Documented Infection< br>Documen funmilayo Infection Site: Urine<br&g t;Duration of Therapy: Other (see Comments) ketorolac 2021-05 No 15mg 15 mg, Unive rs (TORADOL) 05-31 Slow IV ity of injection 20:30: 19:38 Push, [place] 15 mg 00 :00 ONCE, 1 Medical dose, On Branch 03/31/22 at 1430, GERA NaCl 0.9% 2021-05 1000mL at 999 Uni vers (NS) bolus 05-31 mL/hr, ity of infusion 20:30: 20:39 1,000 mL, [place] 1,000 mL 00 :00 IV Medical Infusion, Branch ONCE, 1 dose, On Thu03/31/22 at 1430, STAT aspirin 2021-05 324mg 324 mg, Unive rs chewable 05-31 Oral, ity of tablet 324 20:00: 19:04 ONCE, 1 [place] mg 00 :00 dose, On Medical Mon Branch 03/31/22 at 1400, Routine nitroglycer 2021-05 No .4mg 0.4 mg, Un aquilino in 05-31 Sublingual ity of (NITROSTAT) 19:00: 19:04 , ONCE, 1 [place] sublingual 00 :00 dose, On Medic al tablet 0.4 Thu Branch mg 03/31/22 at 1300, GERA ibuprofen 2021-05 Yes [id number] 600mg Take 1 Univers 600 mg 1-07 tablet by ity of tablet 00:00: mouth [place] 00 every 6 Medical (six) Branch hours as needed for Pain (scale 4-6). doxycycline 2021-05 Yes [id number] 100mg Take 1 Univers hyclate 100 1-07 capsule by it y of mg capsule 00:00: mouth in [place] 00 the Medical morning Branch and 1 capsule in the evening. rosuvastati 2021-05- No [id number] 10mg Take 1 Univers n (CRESTOR) 0-16 11-16 tablet by it y of 10 mg 00:00: 05:59 mouth at [place] tablet 00 :00 bedtime Medical for 30 Branch days. rosuvastati 2021-05- No [id number] 10mg Take 1 Univers n (CRESTOR) 0-16 11-16 tablet by it y of 10 mg 00:00: 05:59 mouth at [place] tablet 00 :00 bedtime Medical for 30 Branch days. dexamethaso 2021- No 10mg 10 mg, Uni vers ne 08-29 Oral, ity of (DECADRON 23:00: 21:53 [place]CE, 1 [place] PHOSPHATE) 00 :00 dose, On Medic al injection Rani 08/29/21 Bran ch 10 mg at 1800, Routine ketorolac 2021- No 30mg 30 mg, Unive rs (TORADOL) 08-29 Intramuscu ity of injection 23:00: 21:53 lar, ONCE, [place] 30 mg 00 :00 1 dose, On Medical Rani 08/29/21 Branch at 1800, GERA ibuprofen Yes [id number] 800mg Take 1 U nivers 800 mg 4-07 tablet by ity of tablet 00:00: mouth [place] 00 every 6 Medical (six) Branch hours as needed for Pain (scale 4-6). ibuprofen Yes [id number] 800mg Take 1 U nivers 800 mg 4-07 tablet by ity of tablet 00:00: mouth [place] 00 every 6 Medical (six) Branch hours as needed for Pain (scale 4-6). ibuprofen Yes [id number] 800mg Take 1 U nivers 800 mg 4-07 tablet by ity of tablet 00:00: mouth [place] 00 every 6 Medical (six) Branch hours as needed for Pain (scale 4-6). methocarbam 2021- No [id number] 1500mg Take 2 Univers oL 750 mg 08-29-12 tablets by ity of tablet 00:00: 04:59 mouth 2 [place] 00 :00 (two) Medical times Branch daily for 4 days. trazodone 2020-05 Yes Take by Unive rs HCl 0-01 mouth. ity of (TRAZODONE 10:19: [place] ORAL) 15 Medical Branch VALPROIC 2020-05 Yes Take by Univer s ACID ORAL 0-01 mouth. ity of 10:19: [place] 15 Medical Branch trazodone 2020-05 Yes Take by Unive rs HCl 0-01 mouth. ity of (TRAZODONE 10:19: [place] ORAL) 15 Medical Branch VALPROIC 2020-05 Yes Take by Univer s ACID ORAL 0-01 mouth. ity of 10:19: [place] 15 [facility] trazodone 2020-05 Yes Take by Unive rs HCl 0-01 mouth. ity of (TRAZODONE 10:19: [place] ORAL) 15 [facility] VALPROIC 2020-05 Yes Take by Univer s ACID ORAL 0-01 mouth. ity of 10:19: [address] trazodone 2020-05 Yes Take by Unive rs HCl 0-01 mouth. ity of (TRAZODONE 10:19: [place] ORAL) 15 [facility] VALPROIC 2020-05 Yes Take by Univer s ACID ORAL 0-01 mouth. ity of 10:19: [address] trazodone 2020-05 Yes Take by Unive rs HCl 0-01 mouth. ity of (TRAZODONE 10:19: [place] ORAL) 15 [facility] VALPROIC 2020-05 Yes Take by Univer s ACID ORAL 0-01 mouth. ity of 10:19: [place] [facility] losartan 50 Yes 50mg Take 50 mg Univers mg tablet 8-10 by mouth ity of 00:00: daily. [place] [facility] losartan 50 Yes 50mg Take 50 mg Univers mg tablet 8-10 by mouth ity of 00:00: daily. [place] [facility] losartan 50 Yes 50mg Take 50 mg Univers mg tablet 8-10 by mouth ity of 00:00: daily. [place] [facility] losartan 50 Yes 50mg Take 50 mg Univers mg tablet 8-10 by mouth ity of 00:00: daily. [place] [facility] losartan 50 Yes 50mg Take 50 mg Univers mg tablet 8-10 by mouth ity of 00:00: daily. [address] aspirin 2020- No 324mg 324 mg, Unive rs chewable 2-05 02-05 Oral, ity of tablet 324 04:30: 03:44 ONCE, 1 [place] mg 00 :00 dose, [facility] 06/28/20 at Branch 2230, Routine trazodone Yes Take by Unive rs HCl 1-12 mouth. ity of (TRAZODONE 17:27: [place] ORAL) [address] [place] [address] Branch trazodone 2020-0 Yes Take by Unive rs HCl 1-12 mouth. ity of (TRAZODONE 17:27: [place] ORAL) 41 Medical Branch trazodone 2020-0 Yes Take by Unive rs HCl 1-12 mouth. ity of (TRAZODONE 17:27: [place] ORAL) 41 Medical Branch Vital Signs Vital Name Observation Time Observation Value Comments Source Systolic blood 2022-03-31 22:20:00 111 mm[Hg] Univer sity of pressure [place] [facility] Diastolic blood 2022-03-31 22:20:00 75 mm[Hg] Unive rsity of pressure [place] [facility] Heart rate 2022-03-31 22:20:00 83 /min Universi ty of [place] [facility] Respiratory rate 2022-03-31 22:20:00 14 /min Univ ersity of [place] [facility] Oxygen saturation in 2022-03-31 22:20:00 98 /min University of Arterial blood by [place] [employer] Pulse oximetry Branch Body temperature 2022-03-31 18:35:00 37.39 Naomi [facility] ersity of [place] [facility] Body height 2022-03-31 18:35:00 165.1 cm Universi ty of [place] [facility] Body weight 2022-03-31 18:35:00 108.863 kg Universi ty of [place] [facility] BMI 2022-03-31 18:35:00 39.94 kg/m2 Universi ty of [facility] Branch Systolic blood 2022-03-09 22:00:00 129 mm[Hg] Univer sity of pressure [place] [facility] Diastolic blood 2022-03-09 22:00:00 91 mm[Hg] Unive rsity of pressure [place] [facility] Heart rate 2022-03-09 22:00:00 72 /min Universi ty of [place] [facility] Respiratory rate 2022-03-09 22:00:00 22 /min Univ ersity of [place] [facility] Oxygen saturation in 2022-03-09 22:00:00 97 /min University of Arterial blood by [employer] Pulse oximetry Branch Body temperature 2022-03-09 18:50:00 36.78 Naomi [facility] ersity of [place] [facility] Body height 2022-03-09 18:50:00 165.1 cm Universi ty of [place] [facility] Body weight 2022-03-09 18:50:00 108.863 kg Universi ty of [place] [facility] BMI 2022-03-09 18:50:00 39.94 kg/m2 Universi ty of [place] [facility] Systolic blood 2021-08-29 22:57:00 152 mm[Hg] Univer sity of pressure [place] [facility] Diastolic blood 2021-08-29 22:57:00 96 mm[Hg] Unive rsity of pressure [place] [facility] Heart rate 2021-08-29 22:57:00 84 /min Universi ty of [place] [facility] Respiratory rate 2021-08-29 22:57:00 18 /min Univ ersity of [place] [facility] Oxygen saturation in 2021-08-29 22:57:00 99 /min University of Arterial blood by [place] [employer] Pulse oximetry Branch Body temperature 2021-08-29 21:06:00 37.22 Naomi Univ ersity of [place] [facility] Body weight 2021-08-29 21:06:00 111.131 kg Universi ty of [place] [facility] BMI 2021-08-29 21:06:00 40.77 kg/m2 Universi ty of [place] [facility] Systolic blood 2021-02-22 15:18:00 126 mm[Hg] Univer sity of pressure [place] [facility] Diastolic blood 2021-02-22 15:18:00 85 mm[Hg] Unive rsity of pressure [place] [facility] Heart rate 2021-02-22 15:18:00 88 /min Universi ty of [place] [facility] Body temperature 2021-02-22 15:18:00 36.22 Naomi Univ ersity of [place] [facility] Respiratory rate 2021-02-22 15:18:00 16 /min Univ ersity of [place] [facility] Body height 2021-02-22 15:18:00 165.1 cm Universi ty of [place] [facility] Body weight 2021-02-22 15:18:00 111.449 kg Universi ty of [place] [facility] BMI 2021-02-22 15:18:00 40.89 kg/m2 Universi ty of [place] [facility] Oxygen saturation in 2021-02-22 15:18:00 99 /min University of Arterial blood by [place] [employer] Pulse oximetry Branch Systolic blood 2020-06-29 06:00:00 121 mm[Hg] Univer sity of pressure [place] [facility] Diastolic blood 2020-06-29 06:00:00 94 mm[Hg] Unive rsity of pressure [facility] Heart rate 2020-06-29 06:00:00 83 /min [facility] Respiratory rate 2020-06-29 06:00:00 20 /min [facility] Oxygen saturation in 2020-06-29 06:00:00 97 /min [facility] Arterial blood by [facility] Pulse oximetry [place] Body temperature 2020-06-29 02:47:00 36.78 Naomi [facility] Body height 2020-06-29 02:47:00 165.1 cm [facility] Body weight 2020-06-29 02:47:00 104.327 kg [facility] BMI 2020-06-29 02:47:00 38.27 kg/m2 [facility] Procedures Procedure Date / Time Performing Clinician Source Performed TROPONIN I 2022-03-31 21:01:00 Lana Schwab [facility] URINALYSIS 2022-03-31 20:40:00 Lana Schwab [facility] D-DIMER 2022-03-31 19:32:00 Lana Schwab [facility] XR CHEST 1 VW 2022-03-31 19:06:34 Lana Schwab [facility] MAGNESIUM 2022-03-31 18:51:00 Lana Schwab [facility] TROPONIN I 2022-03-31 18:51:00 Lana Schwab [facility] COMP. METABOLIC PANEL 2022-03-31 18:51:00 Lana Schwab [facility] ([id number]) [facility] CBC WITH DIFF 2022-03-31 18:51:00 Lana Schwab [facility] N-TERMINAL PRO-BNP 2022-03-31 18:51:00 Lana Schwab [facility] CONSENT/REFUSAL FOR 2022-03-31 18:30:49 Doctor Unassigned, [facility] DIAGNOSIS AND TREATMENT [place] Medical Branch TROPONIN I 2022-03-09 21:09:00 Melendrez, Kailee [facility] LIPID PANEL ([id number])(TOTAL 2022-03-09 19:48:00 Kailee Melendrez [facility] CHOLESTEROL, Medical Branch TRIGLYCERIDES, HDL) GLYCOSYLATED HEMOGLOBIN 2022-03-09 19:48:00 Kailee Melendrez [facility] (A1C) Medical Branch XR CHEST 1 VW 2022-03-09 19:01:15 Singer [facility] LIPASE 2022-03-09 18:52:00 Singer [facility] MAGNESIUM 2022-03-09 18:52:00 Singer [facility] TROPONIN I 2022-03-09 18:52:00 Singer [facility] COMP. METABOLIC PANEL 2022-03-09 18:52:00 Kailee Melendrez [facility] ([id number]) Medical Branch CBC WITH DIFF 2022-03-09 18:52:00 Singer [facility] PROTHROMBIN TIME / INR 2022-03-09 18:52:00 Kailee Melendrez [facility] ACTIVATED PARTIAL 2022-03-09 18:52:00 Singer [facility] THRMPLAS BULMARO [facility] N-TERMINAL PRO-BNP 2022-03-09 18:52:00 Kailee Melendrez [facility] CONSENT/REFUSAL FOR 2022-03-09 18:39:49 Doctor Unasshumberto, [facility] DIAGNOSIS AND TREATMENT [place] Medical [facility] CT CERVICAL SPINE WO 2021-08-29 22:12:00 Eunice Rowley [facility] CONTRAST Medical Branch CT HEAD WO CONTRAST 2021-08-29 22:12:00 Eunice Rowley [facility] NOTICE OF PRIVACY 2021-08-29 21:02:46 Doctor Erendira, [facility] PRACTICES [place] [facility] CONSENT/REFUSAL FOR 2021-08-29 21:02:29 Doctor Unakody, [facility] DIAGNOSIS AND TREATMENT [place] [facility] POCT GRP A STREP 2021-02-22 15:20:00 Martha Louise [facility] (MOLECULAR) Medical Branch COVID-19 (MOLECULAR 2021-01-27 22:13:00 [facility] NUCLEIC ACID AMPLIFICATION) LAB ONLY COVID 2021-01-27 22:13:00 Martha Louise o f [place] INTERPRETATION [facility] TROPONIN I 2020-06-29 04:27:00 Tran Tobin [facility] XR CHEST 1 VW 2020-06-29 03:41:31 Tran Tobin [facility] LIPASE 2020-06-29 02:55:00 Tran Tobin [facility] TROPONIN I 2020-06-29 02:55:00 Tran Tobin [facility] COMP. METABOLIC PANEL 2020-06-29 02:55:00 Tran Tobin [facility] ([id number]) Medical [place] CBC WITH DIFF 2020-06-29 02:55:00 Tran Tobin [facility] PROTHROMBIN TIME / INR 2020-06-29 02:55:00 Tran Tobin [facility] ACTIVATED PARTIAL 2020-06-29 02:55:00 Tran Tobin [facility] THRMPLAS [facility] NOTICE OF PRIVACY 2020-06-29 02:39:50 Doctor Unassigned, [facility] PRACTICES [place] [facility] CONSENT/REFUSAL FOR 2020-06-29 02:39:30 Doctor Unassigned, [facility] DIAGNOSIS AND TREATMENT [place] Medical [place] COVID-19 (PCR MOLECULAR 2019-12-06 14:49:00 Mohit Rowan [facility] TESTING) Medical Branch Encounters Start End Encounter Admission Attending Care Care Encounter Source Date/Time Date/Time Type Type Clinicians Facility Department ID 2022-03-31 2022-03-31 Emergency X Lana SCHWAB [facility] ERT [id number] Univers 12:37:00 16:32:00 [facility] 2022-03-31 2022-03-31 Emergency Lana Schwab [facility] [id number] Univers 12:37:00 16:32:00 Felicity STEPHENS [id number] i nehemias PATEL 4.2.7.2.686 [facility] [id number] [address] 2022-03-09 2022-03-09 Emergency X , [facility] ERT [id number] Univers 13:45:00 17:27:00 KAILEE ivan [facility] 2022-03-09 2022-03-09 [facility] [id number] Univers 13:45:00 17:27:00 Kailee STEPHENS [id number] i ty [facility] 4.2.7.2.686 [facility] [id number] [address] 2021-08-29 2021-08-29 Emergency [facility] [id number] Univers 16:09:00 17:59:00 Eunice STEPHENS [id number] ity of [place] 4.2.7.2.686 [facility] [id number] [address] 2021-08-29 2021-08-29 Emergency [facility] [id number] Univers 16:09:00 17:59:00 EUNICE [facility] 2021-08-29 2021-08-29 Orders Doctor K[place]BER[place] [id number] Univers 00:00:00 00:00:00 Only Unassigned, [place] [id number] ity of [place] [facility] [id number] [place] [id number] [address] 2021-02-22 2021-02-22 Urgent Smita, Cora [facility] [id number]. [id number] Univers 10:12:18 10:32:18 Care Unknown, Attending Health [id number] ity of [place] [id number] [place] Rodríguez?Blea [id number] Az harshil rodrigues [address] [place] [address] Medical Office Building 2021-02-22 2021-02-22 Outpatient R UNKNOWN, [facility] [id number] Univers 10:20:00 10:20:00 ATTENDING ity [facility] 2021-01-28 2021-01-28 Telephone Pcp, [place] [id number] Univers 00:00:00 00:00:00 Patient LION [id number] it y of Does [facility] 4.2.7.2.686 [place] [id number] [facility] 019 Branch 2021-01-27 2021-01-27 Outpatient R DARRIN [facility] [id number] Univers 17:40:00 17:40:00 MARTHA ity of [facility] 2021-01-27 2021-01-27 Laboratory Only, Ang Db Test [facility] [id number] Univers 17:04:52 17:19:00 Only Martha Louise Health [id number] ity of [place] [id number] [place] Rodríguez?Blea [id number] [address] Medical Office Building 2020-06-28 2020-06-29 Emergency [facility] [id number] Univers 20:43:00 00:35:00 [place] [id number] ity of [place] [id number] [place] [id number] [facility] 084 Branch 2020-06-28 2020-06-28 Emergency X [facility] ERT [id number] Univers 20:40:00 20:40:00 ity [facility] 2019-12-06 2020-02-15 Laboratory Only, Web Test [facility] 1.2.840. [id number] Univers 09:48:08 10:30:18 Only Unknown, Attending Health [id number] ity of [place]2.7.2.686 [place] Care - [phone] [address] Results Test Description Test Time Test Comments Results Result Comments Source D-DIMER 2022-03-31 20:27:03 Test Item Value Reference Range Interpretation Comme nts D-DIMER (test code = See_Comment [Autom ated message] The [id number]) system which ge nerated this result tra nsmitted reference range : <0.41 ?g/mL (FEU). Th e reference range was not used to interpr et this result as normal/abnormal . ELIAZAR (test code = ELIAZAR) This test may be used in conjunction with a clinical pretest probability (PTP) assessment model to exclude venous thromboembolism (VTE) in patients suspected of deep venous thrombosis (DVT) and pulmonary embolism (PE) A D-Dimer value less than 0.50 ?g/ml (FEU) has a negative predicative value of 96 to 100% (95% CI)and 97 to 100% (95% CI) as an aid in the diagnosis of deep vein thrombosis (DVT) and pulmonary embolism when there is low or moderate pretest probability of PE or DVT. D-Dimer values are expressed in initial fibrinogen equivalent units (FEU)" The assay results should be used with other information, including the clinical context, in forming a diagnosis. Lab Interpretation Normal (test code = 50671-3) [facility]2021-02-22 15:31:00 Test Item Value Reference Range Interpretation Comments POCT GP A STREP (test neg Negative - code = 27257-6) Negative ELIAZAR (test code = ELIAZAR) accurate development and interpretation of all internal controls Lab Interpretation Normal (test code = 67627-9) [facility] COVID [id number] 15:24:21COVID DMT InterpretationInterpretation/Recommendations: Molecular NAAT Tests for Active Infection with the SARS-CoV-2 Virus: The current test result is positive for the SARS-CoV-2 virus that causes COVID-19 illness. In wfio-rf-kcoetrcq illness, the patient may be considered no longer infectious when it has been after 10 days since symptom onset, the patient has been afebrile for 24 hours without the use of fever-reducing medications, AND other symptoms of COVID-19 are improving. However, in patientswho have been severely ill with COVID-19 or are severely immunocompromised, isolation up to 20 days a fter symptom onset is recommended. Asymptomatic patients are considered infectious for the first 10 days subsequent to the initial positive test result. From the onset of symptoms, if any, this result is likely to remain positive up to 2-4 weeks. Tests for IgM and/or IgG Antibodies to the SARS-CoV-2 Virus: ? Testing for IgM and IgG antibodies approximately 3 weeks after illness onset will likely indicate whether the patient has produced antibodies to the SARS-CoV-2 virus. However, some patients may take longer to develop detectable antibodies, while some patients who were infected with SARS-CoV-2 may never develop antibodies. While antibodies to SARS-CoV-2 may provide some degree of immunity, at this time the strength and duration of the antibody response is unknown. Interpretation Result Comments:These interpretation comments are based upon all COVID-19 testing the patient has had at [facility], including molecular NAAT testing (more commonly known as PCR testing and Rapid ID Now testing) and antibody testing. It does not take into account any testing that a patient has had outside of the [facility] medical record. [facility] LABORATORYSERVICESCOVID [id number]-6 NAAT (no units) ? ? Date ? Value ? 01/27/2021 ? Positive (A) ? [facility] LABORATORY SERVICESUnBaylor Scott [facility] FallsCOVID-19 (MOLECULAR TESTING NUCLEIC ACID AMPLIFICATION)2021-01-28 21:19:22 Test Item Value Reference Range Interpretation Comments SARS-CoV-2 NAAT (test Positive Not Detected A code = 13891-9) ELIAAZR (test code = ELIAZAR) [employer] SARS-CoV-2 Assay is a nucleic acid amplification test intended for the qualitative detection of RNA from SARS-CoV-2 from nasopharyngeal (RODEO CLOWN) specimens. ?It is used under Emergency Use Authorization (EUA) by FDA. A positive result is indicative of the presence of SARS-CoV-2 RNA. ?Clinical correlation with patient history and other diagnostic information is necessary to determine patient infection status. A negative (Not Detected) result does not preclude SARS-CoV-2 infection. ?Clinical correlation with patient history and other diagnostic information should be used in patient management decisions. Invalid: Unable to generate a valid test result on this specimen. ?Please submit a new specimen for repeat testing if clinically indicated. Lab Interpretation Abnormal (test code = 06060-3) [facility] [id number] 05:53:00 Test Item Value Reference Range Interpretation Comments TROPONIN I (test <0.012 See_Comment [Automated code = 5714128570) message] The system which generated this result transmitted reference range : <=0.034 ng/mL. The reference range was not used to interpr et this result as normal/abnormal . ELIAZAR (test code = Equal or Less than ELIAZAR) 0.034 ng/ml---Normal ?Note: Cardiac troponin begins to rise 3-4 hours after the onset of ischemia. Repeat in 4-6 hours if the sample was drawn within 3-4 hours of the onset of the symptom and found normal. Between 0.035 and 0.120 ng/mL--- Borderline. Questionable myocardial injury or necrosis ? ?Note: Serial measurement may be necessary to confirm or exclude the diagnosis of myocardial injury or necrosis; Clinical correlation (symptoms, EKGs, imaging studies, and others) required; Repeat in 4-6 hours if clinically indicated. ? Equal or Higher than 0.121 ng/mL---Abnormal. Myocardial Injury or Necrosis Likely ? Biotin has been reported to cause a negative bias, interpret results relative to patient's use of biotin. ? Lab Interpretation Normal (test code = 57095-7) [facility]ST 1 [id number] 04:16:06Impression: No radiographic evidence for acute cardiopulmonary disease. RL: 460 AFC: [id number] Ordering physician: TRAN TOBIN Indication: Chest pain Comparison: None Findings: Single AP view of the chest. The cardiopericardial silhouette iswithin normal limits. The lungs are clear bilaterally. The visualized bonythorax is intact. [facility], Radiant Results Inft User - 06/28/2020 10:17 PM CSTOrdering physician: TRAN TOBINIndication: Chest painComparison: NoneFindings: Single AP view of the chest. The cardiopericardial silhouette iswithin normal limits. The lungs are clear bilaterally. The visualized bonythorax is intact.IMPRESS IONImpression:No radiographic evidence for acute cardiopulmonary disease.RL: 460AF: [id number] signed by Jenelle Del Rio MD, PhD at 06/28/2020 10:16 [facility] [id number] 04:03:00 Test Item Value Reference Range Interpretation Comments WBC (test code = See_Comment [Automated 2390-2) message] The sy stem which generated this result transmitted reference range : 4.20 - 10.70 10*3/?L. The reference range was not used to interpret this result as normal/abnormal . RBC (test code = See_Comment [Automated 789-8) message] The sy stem which generated this result transmitted reference range : 4.26 - 5.52 10*6/?L. The reference range was not used to interpret this result as normal/abnormal . HGB (test code = 15.0 g/dL 12.2-16.4 718-7) HCT (test code = 43.9 % 38.4-49.3 4544-3) MCV (test code = 90.3 fL 81.7-95.6 787-2) MCH (test code = 30.9 pg 26.1-32.7 785-6) MCHC (test code = 34.2 g/dL 31.2-35 786-4) RDW-SD (test code = 40.3 fL 38.5-51.6 02120-4) RDW-CV (test code = 12.2 % 12.1-15.4 788-0) PLT (test code = See_Comment [Automated 777-3) message] The sy stem which generated this result transmitted reference range : 150 - 328 10*3/ ?L. The reference r vance was not used to interpret this result as normal/abnormal . MPV (test code = 12.6 fL 9.8-13 13576-9) IPF % (test code = 4.8 % 1.2-10.7 Platelet count [id number]) measured by fluorescence method. NRBC/100 WBC (test See_Comment [Automat ed code = 2289991365) message] The system which generated this result transmitted reference range : 0.0 - 10.0 /100 WBCs. The refer ence range was not u sed to interpret th is result as normal/abnormal . NRBC x10^3 (test code <0.01 See_Comment [Auto mated = 3227410103) message] The s ystem which generated this result transmitted reference range : 10*3/?L. The reference range was not used to interpret this result as normal/abnormal . GRAN MAT (NEUT) % 47.4 % (test code = 770-8) IMM GRAN % (test code 0.50 % = 0981506359) LYMPH % (test code = 40.6 % 736-9) MONO % (test code = 8.5 % 5905-5) EOS % (test code = 2.2 % 713-8) BASO % (test code = 0.8 % 706-2) GRAN MAT x10^3(ANC) 4.56 10*3/uL 1.99-6.95 (test code = 8091591274) IMM GRAN x10^3 (test 0.05 10*3/uL 0-0.06 code = 8589140600) LYMPH x10^3 (test code 3.91 10*3/uL 1.09-3.23 H = 731-0) MONO x10^3 (test code 0.82 10*3/uL 0.36-1.02 = 742-7) EOS x10^3 (test code = 0.21 10*3/uL 0.06-0.53 711-2) BASO x10^3 (test code 0.08 10*3/uL 0.01-0.09 = 704-7) REACT LYMPHS (test Rare code = 6476229754) Lab Interpretation Abnormal (test code = 92594-6) [facility] [id number] 03:49:00 Test Item Value Reference Range Interpretation Comments TROPONIN I (test <0.012 See_Comment [Automated code = 4302089689) message] The system which generated this result transmitted reference range : <=0.034 ng/mL. The reference range was not used to interpr et this result as normal/abnormal . ELIAZAR (test code = Equal or Less than ELIAZAR) 0.034 ng/ml---Normal ?Note: Cardiac troponin begins to rise 3-4 hours after the onset of ischemia. Repeat in 4-6 hours if the sample was drawn within 3-4 hours of the onset of the symptom and found normal. Between 0.035 and 0.120 ng/mL--- Borderline. Questionable myocardial injury or necrosis ? ?Note: Serial measurement may be necessary to confirm or exclude the diagnosis of myocardial injury or necrosis; Clinical correlation (symptoms, EKGs, imaging studies, and others) required; Repeat in 4-6 hours if clinically indicated. ? Equal or Higher than 0.121 ng/mL---Abnormal. Myocardial Injury or Necrosis Likely ? Biotin has been reported to cause a negative bias, interpret results relative to patient's use of biotin. ? Lab Interpretation Normal (test code = 82793-7) [facility] CenteraPTT2021-02-05 03:44:00 Test Item Value Reference Range Interpretation Comments APTT Patient (test See_Comment [Automat ed code = 3173-2) message] The system which generated this result transmitted reference range : 23 - 38 Seconds . The reference range was not used to interpr et this result as normal/abnormal . ELIAZRA (test code = ELIAZAR) The [facility] patient population mean normal value for aPTT is 30 seconds. Lab Interpretation Normal (test code = 83372-9) [facility] CenterPROTHROMBIN TIME / [id number] 03:42:00 Test Item Value Reference Range Interpretation Comments PROTIME PATIENT (test See_Comment [Auto mated message] code = 5964-2) The system wh ich generated this result transmitted ref erence range: 12.0 - 1 4.7 Seconds. The re ference range was not u sed to interpret this result as normal/abnor mal. INR (test code = 6301-6) Nor mal INR <1.1; Warfarin Therap eutic range 2.0 to 3. 0 or 2.5 to 3.5, dep ending upon the indica tions. Lab Interpretation (test Normal code = 71218-8) [facility] CenterCOMP. METABOLIC PANEL (32408)2020-06-29 03:38:00 Test Item Value Reference Range Interpretation Comments NA (test code = 140 mmol/L 135-145 5392259207) K (test code = 3.7 mmol/L 3.5-5 1593511578) CL (test code = 105 mmol/L 98-108 8839263883) CO2 TOTAL (test code = 27 mmol/L 23-31 2875488435) AGAP (test code = 2-16 1266376448) BUN (test code = 10 mg/dL 7-23 1775073883) GLUCOSE (test code = 140 mg/dL 70-110 H 1859966672) CREATININE (test code = 0.70 mg/dL 0.6-1.25 3777413013) TOTAL BILI (test code = 0.5 mg/dL 0.1-1.3 3169097987) CALCIUM (test code = 9.5 mg/dL 8.6-10.6 0043191156) T PROTEIN (test code = 6.7 g/dL 6.3-8.2 5181593095) ALBUMIN (test code = 4.1 g/dL 3.5-5 0869994079) ALK PHOS (test code = 40 U/L 34-122 7783978854) ALTv (test code = 60 U/L 5-50 H 1742-6) AST(SGOT) (test code = 32 U/L 13-40 5081933131) eGFR Calculation mL/min/1.73m2 (Non-) (test code = 6952278243) eGFR Calculation mL/min/1.73m2 () (test code = 4326609432) ELIAZAR (test code = ELIAZAR) Association of Glomerular Filtration Rate (GFR) and Staging of Kidney Disease* + --+ --+ ------+| GFR (mL/min/1.73 m2) ?| With Kidney Damage ?| ?Without Kidney Damage+ --------+ --------+ +| ?>90 ?| ?Stage one ?| ? Normal ?+ ---+ ---+ -------+| ?60-89 ?| ?Stage two ?| ? Decreased GFR ? + --+ --+ ------+| ?30-59 ?| ?Stage three ?| ? Stage three ? + --+ --+ ------+| ?15-29 ?| ?Stage four ? | ? Stage four ?+ ---+ ---+ -------+| ?<15 (or dialysis) ? ?| ?Stage five ? | ? Stage five ?+ ---+ ---+ -------+ *Each stage assumes the associated GFR level has been in effect for at least three months. ?Stages 1 to 5, with or without kidney disease, indicate chronic kidney disease. Notes: Determination of stages one and two (with eGFR >59mL/min/1.73 m2) requires estimation of kidney damage for at least three months as defined by structural or functional abnormalities of the kidney, manifested by either:Pathological abnormalities or Markers of kidney damage (including abnormalities in the composition of the blood or urine or abnormalities in imaging tests). Lab Interpretation Abnormal (test code = 13123-1) [facility] CenterLIPASE, [id number] 03:38:00 Test Item Value Reference Range Interpretation Comments LIPASE (test code = 8880212436) 100 U/L 0-220 Lab Interpretation (test code = Normal 38000-8) [facility] CenterCOVID-19 (PCR MOLECULAR TESTING)2019-12-09 00:53:00 Test Item Value Reference Range Interpretation Comments SARS-CoV-2 PCR (test Not Detected Not Detected code = 60923-4) ELIAZAR (test code = ELIAZAR) Disclaimer: This test was developed and its performance characteristics determined by [facility]. It has not been cleared or approved by the US Food and Drug Administration (FDA). An Emergency Use Authorization (EUA) application is under review for FDA approval. This test is used for clinical [...] treatment or other patient management decisions. Negative results must be combined with clinical observations, patient history, and epidemiological information. Positive: The results are provided to [facility]/CDC for tracking purposes. Invalid: Please collect a new specimen for repeat patient testing. Lab Interpretation Normal (test code = 64166-6) [facility]
--- NOTE | 2022-08-06 14:29 | RAD REPORT ---
EXAM DESCRIPTION: RAD - Hand Left 3 View - 08/06/2022 2:05 pm CLINICAL HISTORY: PAIN COMPARISON: No comparisons FINDINGS: No fracture or dislocation seen.
--- NOTE | 2022-08-06 15:48 | EDPHYS ---
Physician Documentation [facility] Name: Simon Sauceda Jr Age: 42 yrs Sex: Male : 1980 Arrival Date: 08/06/2022 Time: 13:27 Bed 12 Private MD: Geovani Pop H ED Physician Chucky Tarango HPI: 08/06 13:41 This 42 yrs old Male presents to ER via Ambulatory with complaints of Hand Injury. jmm 13:41 The patient or guardian reports injury, pain. Onset: The symptoms/episode jmm began/occurred acutely, 1 day(s) ago. Is a 42-year-old male with history of hypertension presents emerged part with left hand pain. Patient states he accidentally hit his hand with a hammer. Patient denies other injury. Was seen yesterday with negative x-ray. Patient is concerned it may have been a false negative.. Historical: - Allergies: 13:38 No Known Allergies; mb9 - Home Meds: 13:38 None [Active]; mb9 - PMHx: 13:38 Kidney stones; Hypertensive disorder; fatty liver; Enlarged Heart; Asthma; Anemia; mb9 - PSHx: 13:38 Cholecystectomy; mb9 - Immunization history:: Adult Immunizations up to date. - Social history:: Smoking status: Patient reports the use of cigarette tobacco products, smokes one-half pack cigarettes per day. ROS: 13:41 Constitutional: Negative for fever, chills, and weight loss, Cardiovascular: Negative jmm for chest pain, palpitations, and edema, Respiratory: Negative for shortness of breath, cough, wheezing, and pleuritic chest pain. 13:41 MS/extremity: Positive for pain. 13:41 All other systems are negative. Exam: 13:41 Constitutional: This is a well developed, well nourished patient who is awake, alert, jmm and in no acute distress. Head/Face: atraumatic. Eyes: EOMI, no conjunctival erythema appreciated ENT: Moist Mucus Membranes Neck: Trachea midline, Supple Chest/axilla: Normal chest wall appearance and motion. Cardiovascular: Regular rate and rhythm. No edema appreciated Respiratory: Normal respirations, no respiratory distress appreciated Abdomen/GI: Non distended Back: Normal ROM Skin: General appearance color normal 13:41 Musculoskeletal/extremity: left hand ttp at the base of the 1st mtp. FROM appreciated to thumb and 4 fingers, < 2 sec dist cap refill, NVI. 13:41 Skin: Appearance: Color: normal in color. 13:41 Neuro: Orientation: is normal, Mentation: is normal, Memory: is normal. 13:41 Psych: Behavior/mood is pleasant, cooperative. Vital Signs: 13:37 BP 126 / 87; Pulse 79; Resp 18; Temp 97.9; Pulse Ox 98% ; Weight 111.13 kg; Height 5 mb9 ft. 5 in. ; Pain 6/10; 13:37 Body Mass Index 40.77 (111.13 kg, 165.1 cm) mb9 13:37 Pain Scale: Adult mb9 MDM: 13:41 Patient medically screened. [facility] 15:46 Differential diagnosis: fracture, tendonitis, sprain, contusion. Data reviewed: vital [facility] signs, nurses notes, radiologic studies, plain films. I considered the following discharge prescriptions or medication management in the emergency department Medications were administered in the Emergency Department. See MAR. Independent interpretation of the following test(s) in the Emergency Department X-Ray: My interpretation is No fracture appreciated. Counseling: I had a detailed discussion with the patient and/or guardian regarding: the historical points, exam findings, and any diagnostic results supporting the discharge/admit diagnosis, radiology results, the need for outpatient follow up, to return to the emergency department if symptoms worsen or persist or if there are any questions or concerns that arise at home. 08/06 13:41 Order name: Hand Left 3 View XRAY; Complete Time: 14:38 [facility] 08/06 15:19 Order name: Thumb Spica Splint [facility] Administered Medications: No medications were administered Disposition Summary: 08/06/22 15:47 Discharge Ordered Location: Home [facility] Condition: Stable [facility] Diagnosis - Contusion of left hand [facility] Followup: [facility] - With: Mani Orozco MD - When: 2 - 3 days - Reason: Recheck today's complaints, Continuance of care, Re-evaluation by your physician Forms: - Medication Reconciliation Form [facility] - Thank You Letter stuart - Antibiotic Education stuart - Prescription Opioid Use [facility] Signatures: Dispatcher [employer] EDMS Mickail, Xu, PA PA jmm Breneman, Denise, RN RN mb9
--- NOTE | 2022-08-06 15:48 | ER ---
Nurse's Notes [facility] Name: Simon Sauceda Jr Age: 42 yrs Sex: Male : 1980 Arrival Date: 08/06/2022 Time: 13:27 Bed 12 Private MD: Geovani Pop H Diagnosis: Contusion of left hand Presentation: 08/06 13:37 Chief complaint: Patient states: "yesterday I hit my left hand with a hammer. I had an mb9 X-RAY done yesterday and they said nothing was wrong. This morning the pain is really bad. Ibuprofen didn't help". Coronavirus screen: At this time, the client does not indicate any symptoms associated with coronavirus-19. Ebola Screen: No symptoms or risks identified at this time. Initial Sepsis Screen: Does the patient meet any 2 criteria? No. Patient's initial sepsis screen is negative. Does the patient have a suspected source of infection? No. Patient's initial sepsis screen is negative. Risk Assessment: Do you want to hurt yourself or someone else? Patient reports no desire to harm self or others. Onset of symptoms was August 05, 2022. 13:37 Method Of Arrival: Ambulatory mb9 13:37 Acuity: ESTER 4 mb9 Triage Assessment: 13:39 General: Appears in no apparent distress. Behavior is calm, cooperative. Pain: mb9 Complains of pain in left hand Pain currently is 6 out of 10 on a pain scale. Quality of pain is described as throbbing, Aggravated by repositioning. Neuro: Level of Consciousness is awake, alert, obeys commands, Oriented to person, place, time, situation, Appropriate for age. Cardiovascular: Patient's skin is warm and dry. Respiratory: Airway is patent Respiratory effort is even, unlabored, Respiratory pattern is regular, symmetrical. GI: No signs and/or symptoms were reported involving the gastrointestinal system. : No signs and/or symptoms were reported regarding the genitourinary system. Derm: Bruising that is dark purple, on left hand. Musculoskeletal: Range of motion: intact in all extremities. Historical: - Allergies: 13:38 No Known Allergies; mb9 - Home Meds: 13:38 None [Active]; mb9 - PMHx: 13:38 Kidney stones; Hypertensive disorder; fatty liver; Enlarged Heart; Asthma; Anemia; mb9 - PSHx: 13:38 Cholecystectomy; mb9 - Immunization history:: Adult Immunizations up to date. - Social history:: Smoking status: Patient reports the use of cigarette tobacco products, smokes one-half pack cigarettes per day. Assessment: 13:40 Reassessment: see triage assessment. mb9 Vital Signs: 13:37 BP 126 / 87; Pulse 79; Resp 18; Temp 97.9; Pulse Ox 98% ; Weight 111.13 kg; Height 5 mb9 ft. 5 in. ; Pain 6/10; 13:37 Body Mass Index 40.77 (111.13 kg, 165.1 cm) mb9 13:37 Pain Scale: Adult mb9 ED Course: 13:27 Patient arrived in ED. mr 13:28 Geovani Pop DO is Private Physician. mr 13:32 Xu eNwby PA is PHCP. [facility] 13:32 Chucky Tarango MD is Attending Physician. [facility] 13:38 Triage completed. mb9 13:39 Arm band placed on. mb9 14:07 Hand Left 3 View XRAY In Process Unspecified. EDMS 15:47 Mani Orozco MD is Referral Physician. steven Administered Medications: No medications were administered Medication: 13:40 VIS not applicable for this client. mb9 Outcome: 15:47 Discharge ordered by . steven Signatures: Dispatcher [employer] EDMS Xu Newby PA PA jmm Rivera, Mary mr [place], Adry Zhou, RN RN mb9
[2022-08-06 22:28] VITALS: BP 126/87; TEMP 97.9; O2SAT 98
== END 2022-08-06 16:08 | disposition home or self-care (01) ==
LOC: ER 13:24
DX: S60.222A Contusion of left hand, initial encounter (principal)

== ENCOUNTER 2023-02-08 01:29 | Emergency (ER) | payer BC, SELFPAY ==
--- OUTSIDE RECORDS SUMMARY | 2023-02-08 01:33 | XMS REPORT | Continuity of Care Document ---
:1980 Author Organization [facility] t Address [address] [facility] [address] [place] [address] Care Team Providers Name Role Phone Pcp, Patient Does Not Have A Primary Care Physician [phone] RADIOLOGY Attending Clinician Unavailable Radiology Attending Clinician Unavailable Cecily Carrera PA-C Attending Clinician CECILY CARRERA Attending Clinician Unavailable Unknown, Attending Attending Clinician Unavailable Doctor Unassigned, [place] Attending Clinician Unavailable Lana SCHWAB Attending Clinician Unavailable Lana Latham Attending Clinician KAILEE MELENDREZ Attending Clinician Unavailable Kailee Melendrez DO Attending Clinician Eunice Silva Attending Clinician EUNICE ROWLEY Attending Clinician Unavailable Cora Vásquez Attending Clinician UNKNOWN, ATTENDING Attending Clinician Unavailable Pcp, Patient Does Not Have A Attending Clinician [phone] MARTHA LOUISE Attending Clinician Unavailable Only, Ang Db Test Attending Clinician Unavailable Martha Louise MD Attending Clinician Tran Tobin MD Attending Clinician Only, Web Test Attending Clinician Unavailable JIM PINEDA Admitting Clinician Unavailable Lana SCHWAB Admitting Clinician Unavailable MELENDREZ, KAILEE Admitting Clinician Unavailable EUNICE ROWLEY Admitting Clinician Unavailable Payers Payer Name Policy Type Policy Number Effective Date Expiration Date S eduardo [employer] [place] - [id number] 2022 00:00:00 OUT OF STATE Problems Condition Condition Condition Status Onset Resolution Last Treating Co mments Source Name Details Category Date Date Treatment Clinician Date Obesity Obesity Disease Recurre Univer s (BMI (BMI nce 2-20 ity of 30-39.9) 30-39.9) 00:00: [address] Allergies, Adverse Reactions, Alerts Allergy Allergy Status Severity Reaction(s) Onset Inactive Treating Comm ents Source Name Type Date Date Clinician NO KNOWN Drug Active Univers ALLERGIE Class ity of S [facility] Social History Social Habit Start Date Stop Date Quantity Comments Source Exposure to 2022-09-28 2022-10-08 Not sure [facility] SARS-CoV-2 00:00:00 13:40:00 [facility] (event) [place] Tobacco use and 2021-02-22 2021-02-22 Smokeless tobacco Un iversity of exposure 00:00:00 00:00:00 non-user [facility] Sex Assigned At [birth year] Universit y of 00:00:00 00:00:00 [facility] Smoking Status Start Date Stop Date Source Unknown [facility] Never smoked tobacco [facility] Medications Ordered Filled Start Stop Current Ordering Indication Dosage Frequency Signature Comments Components Source Medication Medication Date Date Medication? Clinician (SIG) Name Name bromphenira Yes [id number] 5mL Take 5 mL Univers mine-pseudo 4-11 by mouth 3 it y of ephedrine-D 00:00: (three) [place] M (BROMFED 00 times Medical DM) 2-30-10 daily as Bran ch mg/5 mL needed for syrup Cold symptoms. bromphenira Yes [id number] 5mL Take 5 mL Univers mine-pseudo 4-11 by mouth 3 it y of ephedrine-D 00:00: (three) [place] as M (BROMFED 00 times Medical DM) 2-30-10 daily as Bran ch mg/5 mL needed for syrup Cold symptoms. bromphenira Yes [id number] 5mL Take 5 mL Univers mine-pseudo 4-11 by mouth 3 it y of ephedrine-D 00:00: (three) [place] as M (BROMFED 00 times Medical DM) 2-30-10 daily as Bran ch mg/5 mL needed for syrup Cold symptoms. doxycycline 2021-05 No 100mg 100 mg, U nivers hyclate 05-31 Oral, ity of (Vibramycin 22:15: 22[place]19 [place] capsule [place] :00 dose, On Medica l 100 mg [facility] 03/31/22 at 1615, GERA
Re ason for Anti-Infec tive: Documented Infection< br>Documen funmilayo Infection Site: Urine
D uration of Therapy: 10 days cefTRIAXone 2021-05 No 500mg 500 mg, IV Univers (ROCEPHIN) 05-31 Piggyback, it y of 500 mg in 22:15: 22:29 [place] NaCl 0.9% 00 :00 dose, On [facility] (NS) 100 mL [facility] piggyback 03/31/22 at 1615, Administer over 30 Minutes, 100 mL
R kyle for Anti-Infec tive: Documented Infection< br>Documen funmilayo Infection Site: Urine<br&g t;Duration of Therapy: Other (see Comments) ketorolac 2021-05 No 15mg 15 mg, Unive rs (TORADOL) 05-31 Slow IV ity of injection 20:30: 19:38 Push, [place] 15 mg 00 :00 ONCE, 1 Medical dose, On [facility] 03/31/22 at 1430, GERA NaCl 0.9% 2021-05 No 1000mL at 999 Uni vers (NS) bolus 05-31 mL/hr, ity of infusion 20:30: 20:39 1,000 mL, [place] as 1,000 mL 00 :00 IV Medical Infusion, [place] ONCE, 1 dose, On [facility] 03/31/22 at 1430, STAT aspirin 2021-05 No 324mg 324 mg, Unive rs chewable 05-31 Oral, ity of tablet 324 20:00: 19:04 ONCE, 1 [place] as mg 00 :00 dose, On Medical [facility] 03/31/22 at 1400, Routine nitroglycer 2021-05- No .4mg 0.4 mg, Un aquilino in 05-31 Sublingual ity of (NITROSTAT) 19:00: 19:04 , ONCE, 1 [place] sublingual 00 :00 dose, On Medic al tablet 0.4 Mon Branch mg 03/31/22 at 1300, GERA ibuprofen 2021-05 Yes [id number] 600mg Take 1 Univers 600 mg 1-07 tablet by ity of tablet 00:00: mouth [place] 00 every 6 Medical (six) Branch hours as needed for Pain (scale 4-6). doxycycline 2021-05 Yes [id number] 100mg Take 1 Univers hyclate 100 1-07 capsule by it y of mg capsule 00:00: mouth in [place] 00 the Medical morning Branch and 1 capsule in the evening. ibuprofen 2021-05 Yes [id number] 600mg Take 1 Univers 600 mg 1-07 tablet by ity of tablet 00:00: mouth [place] 00 every 6 Medical (six) Branch hours as needed for Pain (scale 4-6). doxycycline 2021-05 Yes [id number] 100mg Take 1 Univers hyclate 100 1-07 capsule by it y of mg capsule 00:00: mouth in [place] 00 the Medical morning Branch and 1 capsule in the evening. ibuprofen 2021-05 Yes [id number] 600mg Take 1 Univers 600 mg 1-07 tablet by ity of tablet 00:00: mouth [place] 00 every 6 Medical (six) Branch hours as needed for Pain (scale 4-6). doxycycline 2021-05 Yes [id number] 100mg Take 1 Univers hyclate 100 1-07 capsule by it y of mg capsule 00:00: mouth in [place] 00 the Medical morning Branch and 1 capsule in the evening. ibuprofen 2021-05 Yes [id number] 600mg Take 1 Univers 600 mg 1-07 tablet by ity of tablet 00:00: mouth [place] 00 every 6 Medical (six) Branch hours as needed for Pain (scale 4-6). doxycycline 2021-05 Yes [id number] 100mg Take 1 Univers hyclate 100 1-07 capsule by it y of mg capsule 00:00: mouth in [place] as 00 the Medical morning Branch and 1 capsule in the evening. ibuprofen 2021-05 Yes [id number] 600mg Take 1 Univers 600 mg 1-07 tablet by ity of tablet 00:00: mouth [place] 00 every 6 Medical (six) Branch hours as needed for Pain (scale 4-6). doxycycline 2021-05 Yes [id number] 100mg Take 1 Univers hyclate 100 1-07 capsule by it y of mg capsule 00:00: mouth in [place] 00 the Medical morning Branch and 1 capsule in the evening. rosuvastati 2021-05- No [id number] 10mg Take 1 Univers n (CRESTOR) 0-16 11-16 tablet by it y of 10 mg 00:00: 05:59 mouth at [place] tablet 00 :00 bedtime Medical for 30 Branch days. rosuvastati 2021-05- No [id number] 10mg Take 1 Univers n (CRESTOR) 0-16 11-16 tablet by it y of 10 mg 00:00: 05:59 mouth at [place] tablet 00 :00 bedtime Medical for 30 Branch days. dexamethaso 2021- No 10mg 10 mg, Uni vers ne 08-29 Oral, ity of (DECADRON 23:00: 21:53 [place]CE[place] PHOSPHATE) 00 :00 dose, On Medic al injection [facility] 08/29/21 Bran ch 10 mg at 1800, Routine ketorolac 2021- No 30mg 30 mg, Unive rs (TORADOL) 08-29 Intramuscu ity of injection 23:00: 21:53 lar, ONCE, [place] 30 mg 00 :00 1 dose, On Medical [facility] 08/29/21 Branch at 1800, GERA ibuprofen Yes [id number] 800mg Take 1 U nivers 800 mg 4-07 tablet by ity of tablet 00:00: mouth [place] 00 every 6 Medical (six) Branch hours as needed for Pain (scale 4-6). ibuprofen Yes [id number] 800mg Take 1 U nivers 800 mg 4-07 tablet by ity of tablet 00:00: mouth [place] 00 every 6 Medical (six) Branch hours as needed for Pain (scale 4-6). ibuprofen Yes [id number] 800mg Take 1 U nivers 800 mg 4-07 tablet by ity of tablet 00:00: mouth [place] 00 every 6 Medical (six) Branch hours as needed for Pain (scale 4-6). ibuprofen 2021-0 Yes [id number] 800mg Take 1 U nivers 800 mg 4-07 tablet by ity of tablet 00:00: mouth [place] 00 every 6 Medical (six) Branch hours as needed for Pain (scale 4-6). ibuprofen 2021-0 Yes [id number] 800mg Take 1 U nivers 800 mg 4-07 tablet by ity of tablet 00:00: mouth [place] 00 every 6 Medical (six) Branch hours as needed for Pain (scale 4-6). ibuprofen 0 Yes [id number] 800mg Take 1 U nivers 800 mg 4-07 tablet by ity of tablet 00:00: mouth [place] 00 every 6 Medical (six) Branch hours as needed for Pain (scale 4-6). ibuprofen 2021-0 Yes [id number] 800mg Take 1 U nivers 800 mg 4-07 tablet by ity of tablet 00:00: mouth [place] 00 every 6 Medical (six) Branch hours as needed for Pain (scale 4-6). methocarbam 2021- No [id number] 1500mg Take 2 Univers oL 750 mg 4-07 04-12 tablets by ity of tablet 00:00: 04:59 [...] Medical Branch trazodone 2020-05 Yes Take by Univ ers HCl 0-01 mouth. ity of (TRAZODONE 10:19: [place] ORAL) 15 Medical Branch VALPROIC 2020-05 Yes Take by Univer s ACID ORAL 0-01 mouth. ity of 10:19: [place] 15 Medical Branch trazodone 2020-05 Yes Take by Unive rs HCl 0-01 mouth. ity of (TRAZODONE 10:19: [place] ORAL) 15 Medical Branch VALPROIC 2020-05 Yes Take by Univer s ACID ORAL 0-01 mouth. ity of 10:19: [place] 15 Medical Branch trazodone 2020-05 Yes Take by Unive rs HCl 0-01 mouth. ity of (TRAZODONE 10:19: [place] ORAL) 15 Medical Branch VALPROIC 2020-05 Yes Take by Univer s ACID ORAL 0-01 mouth. ity of 10:19: [place] 15 Medical Branch trazodone 2020-05 Yes Take by Unive rs HCl 0-01 mouth. ity of (TRAZODONE 10:19: [place] ORAL) 15 Medical Branch VALPROIC 2020-05 Yes Take by Univer s ACID ORAL 0-01 mouth. ity of 10:19: [place] 15 Medical Branch trazodone 2020-05 Yes Take by Unive rs HCl 0-01 mouth. ity of (TRAZODONE 10:19: [place] ORAL) 15 Medical Branch VALPROIC 2020-05 Yes Take by Univer s ACID ORAL 0-01 mouth. ity of 10:19: [place] 15 Medical Branch trazodone 2020-05 Yes Take by Unive rs HCl 0-01 mouth. ity of (TRAZODONE 10:19: [place] ORAL) 15 Medical Branch VALPROIC 2020-05 Yes Take by Univer s ACID ORAL 0-01 mouth. ity of 10:19: [place] Medical Branch losartan 50 Yes 50mg Take 50 mg Univers mg tablet 8-10 by mouth ity of 00:00: daily. Medical Branch losartan 50 Yes 50mg Take 50 mg Univers mg tablet 8-10 by mouth ity of 00:00: daily. Medical Branch losartan 50 Yes 50mg Take 50 mg Univers mg tablet 8-10 by mouth ity of 00:00: daily. Medical Branch losartan 50 2021-0 Yes 50mg Take 50 mg Univers mg tablet 8-10 by mouth ity of 00:00: daily. [place] [facility] losartan 50 2020-0 Yes 50mg Take 50 mg Univers mg tablet 8-10 by mouth ity of 00:00: daily. [place] [facility] Branch losartan 50 2020-0 Yes 50mg Take 50 mg Univers mg tablet 8-10 by mouth ity of 00:00: daily. [place] [facility] losartan 50 2020-0 Yes 50mg Take 50 mg Univers mg tablet 8-10 by mouth ity of 00:00: daily. [place] [facility] losartan 50 0 Yes 50mg Take 50 mg Univers mg tablet 8-10 by mouth ity of 00:00: daily. [place] [facility] losartan 50 Yes 50mg Take 50 mg Univers mg tablet 8-10 by mouth ity of 00:00: daily. [place] [facility] aspirin 2020- No 324mg 324 mg, Unive rs chewable 2-05 02-05 Oral, ity of tablet 324 04:30: 03:44 ONCE, 1 [place] as mg 00 :00 dose, [facility] 06/28/20 at Branch 2230, Routine trazodone 2020-0 Yes Take by Unive rs HCl 1-12 mouth. ity of (TRAZODONE 17:27: [place] ORAL) [address] [place] [address] trazodone 2020-0 Yes Take by Unive rs HCl 1-12 mouth. ity of (TRAZODONE 17:27: [place] ORAL) [address] [place] [address] trazodone 2020-0 Yes Take by Unive rs HCl 1-12 mouth. ity of (TRAZODONE 17:27: [place] ORAL) [address] [place] [address] Vital Signs Vital Name Observation Time Observation Value Comments Source Systolic blood 2022-09-02 19:36:00 130 mm[Hg] Univer sity of pressure [facility] Diastolic blood 2022-09-02 19:36:00 91 mm[Hg] Unive rsity of pressure [facility] Heart rate 2022-09-02 19:36:00 95 /min [facility] Body temperature 2022-09-02 19:36:00 36.94 Naomi [facility] 2022-09-02 19:36:00 16 /min Univ ersity of [place] [facility] Body height 2022-09-02 19:36:00 165.1 cm Universi ty [facility] [place] [facility] Body weight 2022-09-02 19:36:00 112.294 kg Universi ty of [place] [facility] BMI 2022-09-02 19:36:00 41.20 kg/m2 Universi ty of [place] [facility] Oxygen saturation in 2022-09-02 19:36:00 97 /min University of Arterial blood by [place] Medi nia Pulse oximetry Branch Systolic blood 2022-03-31 22:20:00 111 mm[Hg] Univer sity of pressure [place] [facility] Diastolic blood 2022-03-31 22:20:00 75 mm[Hg] Unive rsity of pressure [place] [facility] Heart rate 2022-03-31 22:20:00 83 /min Universi ty of [place] [facility] Respiratory rate 2022-03-31 22:20:00 14 /min Univ ersity of [place] [facility] Oxygen saturation in 2022-03-31 22:20:00 98 /min University of Arterial blood by [place] [employer] nia Pulse oximetry Branch Body temperature 2022-03-31 18:35:00 37.39 Naomi Univ ersity of [place] [facility] Body height 2022-03-31 18:35:00 165.1 cm Universi ty [facility] [place] [facility] Body weight 2022-03-31 18:35:00 108.863 kg Universi ty [facility] [place] [facility] BMI 2022-03-31 18:35:00 39.94 kg/m2 Universi ty [facility] [place] [facility] Systolic blood 2022-03-09 22:00:00 129 mm[Hg] Univer sity of pressure [place] [facility] Diastolic blood 2022-03-09 22:00:00 91 mm[Hg] Unive rsity of pressure [place] [facility] Heart rate 2022-03-09 22:00:00 72 /min Universi ty of [place] [facility] Respiratory rate 2022-03-09 22:00:00 22 /min Univ ersity of [place] [facility] Oxygen saturation in 2022-03-09 22:00:00 97 /min University of Arterial blood by [place] Medi nia Pulse oximetry Branch Body temperature 2022-03-09 18:50:00 36.78 Naomi Univ ersity of [place] [facility] Body height 2022-03-09 18:50:00 165.1 [...] /min University of Arterial blood by [place] [employer] nia Pulse oximetry Branch Body temperature 2021-08-29 [...] /min University of Arterial blood by [place] [employer] nia Pulse oximetry Branch Systolic blood 2020-06-29 06:00:00 121 mm[Hg] [facility] 2020-06-29 06:00:00 94 mm[Hg] [facility] Heart rate 2020-06-29 06:00:00 83 /min [facility] Respiratory rate 2020-06-29 06:00:00 20 /min [facility] Oxygen saturation in 2020-06-29 06:00:00 97 /min [facility] Arterial blood by [facility] Pulse oximetry [place] Body temperature 2020-06-29 02:47:00 36.78 Naomi [facility] Body height 2020-06-29 02:47:00 165.1 cm [facility] Body weight 2020-06-29 02:47:00 104.327 kg [facility] BMI 2020-06-29 02:47:00 38.27 kg/m2 [facility] Procedures Procedure Date / Time Performing Clinician Source Performed XR CHEST 2 2022-10-08 18:50:09 Requisition, Paper [facility] POCT MOLECULAR FLU 2022-09-02 19:45:00 Unknown, Attending General acute hospital ASSIGNMENT OF BENEFITS 2022-09-02 19:30:06 Doctor Unassigned, Un [facility] [place] [facility] TROPONIN I 2022-03-31 21:01:00 Lana Schwab [facility] URINALYSIS 2022-03-31 20:40:00 Lana Schwab [facility] D-DIMER 2022-03-31 19:32:00 Lana Schwab [facility] XR CHEST 1 2022-03-31 19:06:34 Lana Schwab [facility] MAGNESIUM 2022-03-31 18:51:00 Lana Schwab Felicity [facility] TROPONIN I 2022-03-31 18:51:00 Lana Schwab Felicity [facility] COMP. METABOLIC PANEL 2022-03-31 18:51:[address] [facility] ([id number]) Medical Branch CBC WITH DIFF 2022-03-31 18:51:00 Lana Schwab [facility] N-TERMINAL PRO-BNP 2022-03-31 18:51:00 Lana Schwab [facility] CONSENT/REFUSAL FOR 2022-03-31 18:30:49 Doctor Unasshumberto, [facility] DIAGNOSIS AND TREATMENT [place] Medical [place] TROPONIN I 2022-03-09 21:09:00 Singer [facility] LIPID PANEL ([id number])(TOTAL 2022-03-09 19:48:00 Kailee Melendrez [facility] CHOLESTEROL, [facility] Branch TRIGLYCERIDES, HDL) GLYCOSYLATED HEMOGLOBIN 2022-03-09 19:48:[address] [facility] (A1C) [facility] XR CHEST 1 VW 2022-03-09 19:01:15 Singer [facility] LIPASE 2022-03-09 18:52:00 Singer [facility] MAGNESIUM 2022-03-09 18:52:00 Singer [facility] TROPONIN I 2022-03-09 18:52:00 Singer [facility] COMP. METABOLIC PANEL 2022-03-09 18:52:[address] [facility] ([id number]) Medical Branch CBC WITH DIFF 2022-03-09 18:52:00 Singer [facility] PROTHROMBIN TIME / INR 2022-03-09 18:52:00 Singer Kailee [facility] ACTIVATED PARTIAL 2022-03-09 18:52:00 Singer [facility] THRMPLAS BULMARO [facility] N-TERMINAL PRO-BNP 2022-03-09 18:52:00 Singer Kailee [facility] CONSENT/REFUSAL FOR 2022-03-09 18:39:49 Doctor Unassigned, [facility] DIAGNOSIS AND TREATMENT [place] Medical Branch CT CERVICAL SPINE WO 2021-08-29 22:12:00 Eunice [facility] CONTRAST Medical Branch CT HEAD WO CONTRAST 2021-08-29 22:12:00 Eunice Rowley [facility] NOTICE OF PRIVACY 2021-08-29 21:02:46 Doctor Unassigned, [facility] PRACTICES [place] Medical Branch CONSENT/REFUSAL FOR 2021-08-29 21:02:29 Doctor Unassigned, [facility] DIAGNOSIS AND TREATMENT [place] Medical Branch POCT GRP A STREP 2021-02-22 15:20:00 Dani [facility] (MOLECULAR) Medical Branch COVID-19 (MOLECULAR 2021-01-27 22:13:00 Martha Louise [facility] TESTING Medical Branch NUCLEIC ACID AMPLIFICATION) LAB ONLY COVID 2021-01-27 22:13:00 [facility] INTERPRETATION [facility] TROPONIN I 2020-06-29 04:27:00 Trna Tobin [facility] XR CHEST 1 VW 2020-06-29 03:41:31 Tran Tobin [facility] LIPASE 2020-06-29 02:55:00 Tran Tobin [facility] TROPONIN I 2020-06-29 02:55:00 Tran Tobin [facility] COMP. METABOLIC PANEL 2020-06-29 02:55:00 Tran Tobin [facility] ([id number]) [facility] CBC WITH DIFF 2020-06-29 02:55:00 Tran Tobin [facility] PROTHROMBIN TIME / INR 2020-06-29 02:55:00 Tran Tobin [facility] ACTIVATED PARTIAL 2020-06-29 02:55:00 Tran Tobin [facility] THRMPLAS BULMARO [facility] NOTICE OF PRIVACY 2020-06-29 02:39:50 Doctor Unassigned, [facility] PRACTICES [place] Medical Branch CONSENT/REFUSAL FOR 2020-06-29 02:39:30 Doctor Unassigned, [facility] DIAGNOSIS AND TREATMENT [place] Medical Branch COVID-19 (PCR MOLECULAR 2019-12-06 14:49:[address] [facility] TESTING) Medical Branch Encounters Start End Encounter Admission Attending Care Care Encounter Source Date/Time Date/Time Type Type Clinicians Facility Department ID 2023-02-05 2023-02-05 Outpatient [facility] [id number] Jim 14:27:55 14:27:55 [id number] F Homero 2022-12-20 2022-12-20 Outpatient [facility] [id number] Jim 10:46:43 10:46:43 [id number] F Homero 2022-10-08 2022-10-08 Outpatient R RADIOLOGY [facility] [id number] Univers 13:41:35 23:59:00 ity of [facility] 2022-10-08 2022-10-08 Hospital Radiology [facility] [id number] Univers 13:30:00 23:59:00 Encounter ANGLENELLY [id number] ity [place].2.686 [place] [id number] [facility] [address] [place] 2022-09-04 2022-09-04 Telephone Deandre [facility] [id number] Univers 00:00:00 00:00:00 [facility] [id number] it y of [place] 4.2.7.2.686 [place] as RODRÍGUEZ?BLEA [id number] [address] MEDICAL OFFICE [facility] 2022-09-02 2022-09-02 Outpatient R DEANDRE [facility] [id number] Univers 14:40:00 15:17:11 CECILY ity [facility] 2022-09-02 2022-09-[address] [facility] [id number] Univers 14:40:00 15:17:11 Care Unknown, Attending HEALTH [id number] ity of [place] 4.2.7.2.686 [place] as RODRÍGUEZ?BLEA [id number] [facility] [address] [place] MEDICAL OFFICE BUILDING 2022-09-02 2022-09-02 Orders Doctor CHU [id number] Univers 00:00:00 00:00:00 Only Unassigned, [place] [id number] ity of [place] [facility] 4.2.7.2.686 Y[place] as [id number] [address] 2022-03-31 2022-03-31 Emergency X Lana SCHWAB [facility] ERT [id number] Univers 12:37:00 16:32:00 ity of [facility] 2022-03-31 2022-03-31 Emergency Lana Schwab [facility] [id number] Univers 12:37:00 16:32:00 Felicity STEPHENS [id number] i ty of [place] 4.2.7.2.[address] [facility] [id number] [address] 2022-03-09 2022-03-09 Emergency X [facility] ERT [id number] Univers 13:45:00 17:27:00 KAILEE ryder [facility] 2022-03-09 2022-03-09 Emergency [facility] [id number] Univers 13:45:00 17:27:00 Kailee STEPHENS 350.1.13.10 i ty of [place] 4.2.7.2.686 [facility] [id number] [address] 2021-08-29 2021-08-29 Emergency [facility] [id number] Univers 16:09:00 17:59:00 Eunice STEPHENS [id number] ity of [place] 4.2.7.2.[address] [facility] [id number] [address] 2021-08-29 2021-08-29 Emergency X [facility] ERT [id number] Univers 16:09:00 17:59:00 RETAO ity [facility] 2021-08-29 2021-08-29 Orders Doctor KIMBERLEY [id number] [id number] Univers 00:00:00 00:00:00 Only Unassigned, LION 350.1.13.10 ity of [place] [facility] 4.2.7.2.686 Y[place] [id number] [address] 2021-02-22 2021-02-22 Urgent Cora Ordoñez [facility] 1.2.840. [id number] Univers 10:12:18 10:32:18 Care Unknown, Attending Health 350.1.13.10 ity of [place] 4.2.7.2.686 [place] as Rodríguez?Blea [id number] [address] Medical Office [facility] 2021-02-22 2021-02-22 Outpatient R OBINNA, [facility] [id number] Univers 10:20:00 10:20:00 ATTENDING ity [facility] 2021-01-28 2021-01-28 Telephone PcpKIMBERLEY [id number] Univers 00:00:00 00:00:00 Patient LION 350.1.13.10 it y of [place] [facility] [place] [id number] [facility] [address] [place] 2021-01-27 2021-01-27 Outpatient R DANI, [facility] [id number] Univers 17:40:00 17:40:00 MARTHA ity [facility] 2021-01-27 2021-01-27 Laboratory Only, Ang Db Test [facility] 1.2.8 [id number] Univers 17:04:52 17:19:00 Only Dani [facility] [id number] ity of [place] 4.2.7.2.686 [place] as Rodríguez?Blea [id number] [address] Medical Office [facility] 2020-06-28 2020-06-29 Emergency Yarifl, [facility] [id number] Univers 20:43:00 00:35:00 Tran S [place] [id number] ity of [place] [id number] [place] [facility] [phone] [facility] [address] 2020-06-28 2020-06-28 Emergency X [facility] ERT [id number] Univers 20:40:00 20:40:00 ity [facility] 2019-12-06 2020-02-15 Laboratory Only, Web Test [facility] [id number]. [id number] [facility] 09:48:08 10:30:18 Only Unknown, Attending Health [id number] ity of [place] 4.2.7.2.686 [place] [facility] [phone] [facility] [address] Results Test Description Test Time Test Comments Results Result Comments Source POCT MOLECULAR FLU 2022-09-02 19:57:37 Test Item Value Reference Range Interpretation Comme nts POCT Molecular FluA (test code = 05896-5) Negative Negative POCT Molecular FluB (test code = 52617-1) Negative Negative Lab Interpretation (test code = 60613-0) Normal [id number] 20:27:03 Test Item Value Reference Interpretation Comments Range D-DIMER (test code = See_Comment [Autom ated [id number]) message] The system which generated this result transmitted reference range : <0.41 ?g/mL (FEU). The reference range was not used to interpret this result as normal/abnormal . ELIAZAR (test code = This test may be ELIAZAR) used in conjunction with a clinical pretest [...] diagnosis. Lab Interpretation Normal (test code = 04602-8) [facility]CULAR)2021-02-22 15:31:00 Test Item Value Reference Range Interpretation Comments POCT GP A STREP (test neg Negative - code = 09557-4) Negative ELIAZAR (test code = ELIAZAR) accurate development and interpretation of all internal controls Lab Interpretation Normal (test code = 95486-2) [facility] COVID [id number] 15:24:21COVID DMT InterpretationInterpretation/Recommendations: Molecular NAAT Tests for Active Infection with the SARS-CoV-2 Virus: The current test result is positive for the SARS-CoV-2 virus that causes COVID-19 illness. In ayyh-ie-xrovgtwb illness, the patient may be considered no [...] COVID-19 testing the patient has had at [facility], including molecular NAAT testing(more commonly known as PCR testing and Rapid ID Now testing) and antibody testing. It does not takeinto account any testing that a patient has had outside of the [facility] medical record. [facility] LABORATORY SERVICESCOVID [id number]-[id number] NAAT (no units) ? ? Date ? Value ? 01/27/2021 ? Positive (A) ? [facility] LABORATORY SERVICESLeg[facility] HospitalCOVID-19 (MOLECULAR TESTING NUCLEIC ACID AMPLIFICATION)2021-01-28 21:19:22 Test Item Value Reference Range Interpretation Comments SARS-CoV-2 NAAT (test Positive Not Detected A code = 65385-2) ELIAZAR (test code = ELIAZAR) [employer] Aptima SARS-CoV-2 Assay is a nucleic acid amplification test intended for the qualitative detection of RNA from SARS-CoV-2 from nasopharyngeal (BRAID PATTERN SETTER) specimens. ?It is used under Emergency Use [...] indicated. Lab Interpretation Abnormal (test code = 69203-9) [facility] [id number] 05:53:00 Test Item Value Reference Range Interpretation Comments TROPONIN I (test <0.012 See_Comment [Automated code = 4717024953) message] The system which generated this result [...] ? Lab Interpretation Normal (test code = 60825-8) [facility] 1 [id number] 04:16:06Impression: No radiographic evidence for acute cardiopulmonary disease. RL: [id number] AFC: [id number] Ordering physician: TRAN TOBIN Indication: Chest pain [...] IONImpression:No radiographic evidence for acute cardiopulmonary disease.RL: 460AFC: [id number] signed by Jenelle Del Rio MD, PhD at 06/28/2020 10:16 PMUnNorth [facility] CampusCBC WITH [id number] 04:03:00 Test Item Value Reference Range Interpretation Comments WBC (test code = See_Comment [Automated 6990-2) message] The sy stem which generated this result transmitted reference range : 4.20 - 10.70 10*3/?L. The reference range was not used to interpret this result as normal/abnormal . RBC (test code = See_Comment [Automated 529-8) message] The sy stem which generated this [...] RDW-SD (test code = 40.3 fL 38.5-51.6 60637-8) RDW-CV (test code = 12.2 % 12.1-15.4 788-0) PLT (test code = See_Comment [Automated 777-3) message] The sy stem which generated this result transmitted reference range : 150 - 328 10*3/ ?L. The reference r vance was not used to interpret this result as normal/abnormal . MPV (test code = 12.6 fL 9.8-13 90240-6) IPF % (test code = 4.8 % 1.2-10.7 Platelet count [id number]) measured by fluorescence method. NRBC/100 WBC (test See_Comment [Automat ed code = 2207882027) message] The system which generated this result transmitted reference range : 0.0 - 10.0 /100 WBCs. The refer ence range was not u sed to interpret th is result as normal/abnormal . NRBC x10^3 (test code <0.01 See_Comment [Auto mated = 0552504213) message] The s ystem which generated this result transmitted reference range : 10*3/?L. The reference range was not used to interpret this result as normal/abnormal . GRAN MAT (NEUT) % 47.4 % (test code = 770-8) IMM GRAN % (test code 0.50 % = 2625817360) LYMPH % (test code = 40.6 % 736-9) MONO % (test code = 8.5 % 5905-5) EOS % (test code = 2.2 % 713-8) BASO % (test code = 0.8 % 706-2) GRAN MAT x10^3(ANC) 4.56 10*3/uL 1.99-6.95 (test code = 0865024143) IMM GRAN x10^3 (test 0.05 10*3/uL 0-0.06 code = 4484949926) LYMPH x10^3 (test code 3.91 10*3/uL 1.09-3.23 H = 731-0) MONO x10^3 (test code 0.82 10*3/uL 0.36-1.02 = 742-7) EOS x10^3 (test code = 0.21 10*3/uL 0.06-0.53 711-2) BASO x10^3 (test code 0.08 10*3/uL 0.01-0.09 = 704-7) REACT LYMPHS (test Rare code = 4058975188) Lab Interpretation Abnormal (test code = 35942-2) [facility] [id number] 03:49:00 Test Item Value Reference Range Interpretation Comments TROPONIN I (test <0.012 See_Comment [Automated code = 1583199025) message] The system which generated this result [...] ? Lab Interpretation Normal (test code = 73816-4) [facility]PTT2021-[facility]-05 03:44:00 Test Item Value Reference Range Interpretation Comments APTT Patient (test See_Comment [Automat ed code = 3173-2) message] The system which generated this result transmitted reference range : 23 - 38 Seconds . The reference range was not used to interpr et this result as normal/abnormal . ELIAZAR (test code = ELIAZAR) The [facility] patient population mean normal value for aPTT is 30 seconds. Lab Interpretation Normal (test code = 39736-1) [facility] HospitalPROT[facility]OMBIN TIME / [id number] 03:42:00 Test Item Value Reference Range Interpretation Comments PROTIME PATIENT (test See_Comment [Auto mated message] code = 5964-2) The system [employer] generated this result transmitted ref erence range: 12.0 - 1 4.7 Seconds. The re ference range was not u sed to interpret this result as normal/abnor mal. INR (test code = 6301-6) Nor mal INR <1.1; Warfarin Therap eutic range 2.0 to 3. 0 or 2.5 to 3.5, dep ending upon the indica tions. Lab Interpretation (test Normal code = 45172-9) [facility]. METABOLIC PANEL (73607)2020-06-29 03:38:00 Test Item Value Reference Range Interpretation Comments NA (test code = 140 mmol/L 135-145 4537069244) K (test code = 3.7 mmol/L 3.5-5 9818714947) CL (test code = 105 mmol/L 98-108 4366948348) CO2 TOTAL (test code = 27 mmol/L 23-31 7524058793) AGAP (test code = 2-16 2480875119) BUN (test code = 10 mg/dL 7-23 0306970121) GLUCOSE (test code = 140 mg/dL 70-110 H 2407622379) CREATININE (test code = 0.70 mg/dL 0.6-1.25 5998587810) TOTAL BILI (test code = 0.5 mg/dL 0.1-1.3 6122177180) CALCIUM (test code = 9.5 mg/dL 8.6-10.6 3758630410) T PROTEIN (test code = 6.7 g/dL 6.3-8.2 7491878733) ALBUMIN (test code = 4.1 g/dL 3.5-5 2600369667) ALK PHOS (test code = 40 U/L 34-122 6759843516) ALTv (test code = 60 U/L 5-50 H 1742-6) AST(SGOT) (test code = 32 U/L 13-40 2235643373) eGFR Calculation mL/min/1.73m2 (Non-) (test code = 4607166166) eGFR Calculation mL/min/1.73m2 () (test code = 1651653049) ELIAZAR (test code = ELIAZAR) Association of [...] tests). Lab Interpretation Abnormal (test code = 95406-7) [facility] HospitalLIPASE, [id number] 03:38:00 Test Item Value Reference Range Interpretation Comments LIPASE (test code = 3693866110) 100 U/L 0-220 Lab Interpretation (test code = Normal 76945-5) [facility] (PCR MOLECULAR TESTING)2019-12-09 00:53:00 Test Item Value Reference Range Interpretation Comments SARS-CoV-2 PCR (test Not Detected Not Detected code = 08674-2) ELIAZAR (test code = ELIAZAR) Disclaimer: This test was developed and its performance characteristics determined by [facility]. It has not been cleared or approved [...] testing. Lab Interpretation Normal (test code = 07270-9) [facility]
[2023-02-08 02:04] LABS: Absolute Lymphocytes (CBC) 0.7 K/uL (0.7-4.9); Hematocrit 41.1 % (39.6-49.0); Lymphocytes % 7.3 % (15.3-44.8); MCV 92.2 fL (80-100); MPV 8.7 fL (7.6-11.3); Platelets 260 thou/uL (152-406); RBC Red Blood Cell Count 4.47 M/uL (4.33-5.43)
[2023-02-08] MEDS ORDERED: ACETAMINOPHEN 500 MG TAB ONE (02:11)
[2023-02-08] MEDS ORDERED: ONDANSETRON 4 MG/2 ML VIAL ONE (02:12)
[2023-02-08] MEDS ORDERED: KETOROLAC 30 MG/ML INJ ONE (02:12)
[2023-02-08] MEDS ORDERED: NA CHLORIDE 0.9% 2,000 ML ONE (02:12)
[2023-02-08] MEDS ORDERED: LORazepam 2 MG/ML VIAL ONE (02:12)
[2023-02-08 02:13] LABS: Protime INR 1.09
[2023-02-08 02:34] LABS: Albumin 3.7 g/dL (3.4-5.0); Bilirubin Direct 0.1 mg/dL (0-0.2); Bilirubin Indirect, Calculated 0.2 mg/dL (0.2-0.8); Bilirubin Total 0.3 mg/dL (0.2-1.0); Protein, Total 6.9 g/dL (6.4-8.2); Troponin High Sensitivity 3.8 pg/mL (<58.9)
[2023-02-08 02:36] LABS: SARS-CoV-2 Antigen Rapid Res Positive (Negative)
[2023-02-08 03:12] LABS: Specific Gravity 1.019 (1.005-1.030); Urine Bacteria <20 /HPF (<20); Urine Bilirubin NEGATIVE (Negative); Urine Blood Negative (Negative); Urine Clarity Extremely Turbid (Clear); Urine Color Light-Yellow (Yellow); Urine Glucose NEGATIVE (Negative); Urine Mucus Slight /HPF (None Seen); Urine Protein NEGATIVE (Negative); Urine RBC <5 /HPF (None Seen); Urine Urobilinogen Normal (Normal); Urine pH 7.5 (5.0-7.0)
--- NOTE | 2023-02-08 03:15 | EDPHYS ---
Physician Documentation [facility] Name: Simon Sauceda Jr Age: 42 yrs Sex: Male : 1980 Arrival Date: 02/08/2023 Time: 01:29 Bed 15 Private MD: ED Physician Mike Jennings HPI: 02/08 01:36 This 42 yrs old Male presents to ER via Unassigned with complaints of POSSIBLE sp4 SERITONIN SYND. 01:37 HPI - Allergies: No Known Allergies Home Meds: None; PMHx: Kidney stones; Hypertensive sp4 disorder; fatty liver; Enlarged Heart; Asthma; Anemia; PSHx: Cholecystectomy;. 03:26 42-year-old male presents with complaint of a cute onset of 2 days of shakes, feeling sp4 unwell, possible seizure. Patient states he is having back pain, and some body aches. Patient at home takes Prozac, BuSpar, and Effexor. Prozac is 10 mg p.o. daily, Effexor 37.5 mg p.o. daily, and BuSpar reportedly 10 mg twice a day. Patient states that he suspects he may have serotonin syndrome. Patient actually stopped taking his medications on Thursday, 2 days ago secondary to feeling unwell. . Historical: - Allergies: 02:07 No Known Allergies; pf1 - PMHx: 02:07 Anemia; Asthma; Enlarged Heart; fatty liver; Hypertensive disorder; Kidney stones; pf1 Anxiety; Headache; Bipolar disorder; scoliosis; Chronic back pain; - PSHx: 02:07 Cholecystectomy; kidney stone removal; pf1 - Immunization history:: Adult Immunizations up to date, Client reports receiving the 2nd dose of the Covid vaccine, Last tetanus immunization: < 5 years ago Flu vaccine is not up to date. - Social history:: Smoking status: Patient reports the use of cigarette tobacco products, smokes one-half pack cigarettes per day, Patient/guardian denies using alcohol, street drugs. - Family history:: not pertinent. ROS: 03:26 Constitutional: Negative for fever, and weight loss, positive chills, rigors, feeling sp4 unwell, generalized body aches, back pain 03:26 All other systems are negative. Exam: 03:26 Constitutional: This is a well developed, well nourished patient who is awake, alert, sp4 patient is emotionally upset, tachycardic, ill-appearing but nontoxic. Patient is also having moderate anxiety on exam. Head/Face: Normocephalic, atraumatic. Eyes: Pupils equal round and reactive to light, extra-ocular motions intact. Lids and lashes normal. Conjunctiva and sclera are not injected. Cornea within normal limits. Periorbital areas with no swelling, redness, or edema. ENT: Nares patent. No nasal discharge, no septal abnormalities noted. Tympanic membranes are normal and external auditory canals are clear. Oropharynx with no redness, swelling, or masses, exudates, or evidence of obstruction, uvula midline. Mucous membranes moist. Neck: Trachea midline, no thyromegaly or masses palpated, and no cervical lymphadenopathy. Supple, full range of motion without nuchal rigidity, or vertebral point tenderness. Chest/axilla: Normal chest wall appearance and motion. Nontender with no deformity. No lesions are appreciated. Cardiovascular: Regular rate and rhythm with a normal S1 and S2. No gallops, murmurs, or rubs. Normal PMI, no JVD. No pulse deficits. Respiratory: Lungs have equal breath sounds bilaterally, clear to auscultation and percussion. No rales, rhonchi or wheezes noted. No increased work of breathing, no retractions or nasal flaring. Abdomen/GI: Soft, non-tender, with normal bowel sounds. No distension or tympany. No guarding or rebound. No evidence of tenderness throughout. Back: No spinal tenderness. No costovertebral tenderness. Skin: Warm, dry with normal turgor. Normal color with no rashes, no lesions, and no evidence of cellulitis. MS/ Extremity: Pulses equal, no cyanosis. Neurovascular intact. Full, normal range of motion. Neuro: Awake and alert, GCS 15, oriented to person, place, time, and situation. Cranial nerves II-XII grossly intact. Motor strength 5/5 in all extremities. Sensory grossly intact. Psych: Awake, alert, with orientation to person, place and time. Positive anxiety and emotional upset 03:26 ECG was reviewed by the Attending Physician. EKG time 0 222 there is sinus sp4 tachycardia at rate of 116, no ST elevation or depression, no ectopy. Bedside sinus tachycardia EKG is normal Vital Signs: 01:33 BP 149 / 97; Pulse 122; Resp 18; Temp 100.7(O); Pulse Ox 98% on R/A; Weight 108.41 kg; pf1 Height 5 ft. 5 in. ; Pain 10/10; 02:30 BP 147 / 90; Pulse 125; Resp 18 S; Pulse Ox 99% on R/A; ha1 03:01 Temp 100.2; ha1 03:28 BP 149 / 92; Pulse 111; Resp 18; Pulse Ox 100% ; pf1 01:33 Body Mass Index 39.77 (108.41 kg, 165.1 cm) pf1 01:33 Pain Scale: Adult pf1 MDM: 03:15 Patient medically screened. sp4 03:21 Differential Diagnosis altered mental status, sepsis, flu. Data reviewed: vital signs, sp4 nurses notes, old medical records, lab test result(s), cardiac enzymes, CBC, electrolytes, Flu: negative hepatic panel, urinalysis, urine drug screen, EKG. Consideration of Admission/Observation Escalation of care including admission/observation considered. ED course: Patient has improved after IV hydration and also after Toradol . Patient is stable for discharge home with prescription for p.o. Paxlovid, as needed Zofran, and as needed Naprosyn for body aches . ED course: Chest x ray - 42 years Male tremors, fever COMPARISON: None FINDINGS: Lung volumes diminished. Mild bronchovascular crowding. Cardiac silhouette is normal in size. No pneumothorax. No large pleural effusion. No focal consolidation. No acute bony finding. IMPRESSION: 1. No focal consolidation. 2. Lung volumes with associated hypo ventilatory changes. . 03:33 ED course: Patient is positive for COVID, will manage with p.o. Paxlovid and sp4 symptomatic medications. Patient remains emotionally upset prior to discharge. . 02/08 01:45 Order name: Basic Metabolic Panel; Complete Time: 02:42 sp4 02/08 01:45 Order name: CBC with Diff; Complete Time: 02:42 sp4 02/08 01:45 Order name: LFT's; Complete Time: 02:42 sp4 02/08 01:45 Order name: Magnesium; Complete Time: 02:42 sp4 02/08 01:45 Order name: NT PRO-BNP; Complete Time: 02:42 sp4 02/08 01:45 Order name: PT-INR; Complete Time: 02:42 02/08 01:45 Order name: Troponin HS; Complete Time: 02:42 02/08 01:47 Order name: Urine Drug Screen; Complete Time: 03:17 02/08 01:47 Order name: Alcohol Level; Complete Time: 02:42 02/08 01:47 Order name: Acetaminophen; Complete Time: 02:42 02/08 01:47 Order name: Salicylate; Complete Time: 02:59 02/08 01:47 Order name: Urinalysis W/Microscopic; Complete Time: 03:14 02/08 01:48 Order name: SARS RAPID; Complete Time: 02:42 02/08 01:48 Order name: Influenza Screen (a \T\ B); Complete Time: 02:42 02/08 01:48 Order name: Lactate w/ 2H reflex if indic.; Complete Time: 02:42 02/08 01:45 Order name: XRAY Chest (1 view) 02/08 01:45 Order name: EKG; Complete Time: 01:46 02/08 01:45 Order name: Cardiac monitoring; Complete Time: 01:56 02/08 01:45 Order name: EKG - Nurse/Tech; Complete Time: 02:29 02/08 01:45 Order name: IV Saline Lock; Complete Time: 01:56 02/08 01:45 Order name: Labs collected and sent; Complete Time: 01:56 02/08 01:45 Order name: O2 Per Protocol; Complete Time: 01:56 02/08 01:45 Order name: O2 Sat Monitoring; Complete Time: 01:56 EC:26 Rate is 116 beats/min. Rhythm is regular, Sinus tachycardia. QRS Chambers is Normal. MA sp4 interval is normal. QRS interval is normal. QT interval is normal. No Q waves. T waves are Normal. No ST changes noted. Clinical impression: Sinus tachycardia. Interpreted by me. Reviewed by me. Administered Medications: 01:50 Drug: NS 0.9% IV 1000 ml Route: IV; Rate: 1 bolus; Site: right antecubital; ha1 03:31 Follow up: Response: No adverse reaction; Marked relief of symptoms; IV Status: pf1 Completed infusion; IV Intake: 1000ml 01:50 Drug: NS 0.9% IV 1000 ml Route: IV; Rate: 125 ml/hr; Site: right antecubital; ha1 03:30 Follow up: Response: No adverse reaction; Marked relief of symptoms pf1 03:31 Follow up: IV Status: Completed infusion pf1 01:50 Drug: Acetaminophen PO 1000 mg Route: PO; ha1 02:50 Follow up: Response: No adverse reaction; Marked relief of symptoms pf1 01:55 Drug: Ativan IVP 2 mg Route: IVP; Site: right antecubital; ha1 02:50 Follow up: Response: No adverse reaction; Marked relief of symptoms pf1 02:00 Drug: Ondansetron IVP 4 mg Route: IVP; Site: right antecubital; ha1 03:00 Follow up: Response: No adverse reaction; Marked relief of symptoms; Nausea is decreasedpf1 02:02 Drug: Ketorolac IVP 30 mg Route: IVP; Site: right antecubital; ha1 03:00 Follow up: Response: No adverse reaction; Marked relief of symptoms; Pain is decreased pf1 Disposition Summary: 02/08/23 03:15 Discharge Ordered Location: Home sp4 Problem: new sp4 Symptoms: have improved sp4 Condition: Stable sp4 Diagnosis - Other specified viral diseases sp4 - Acute COVID-19, fever, body aches sp4 Followup: sp4 - With: Private Physician - When: 7 - 10 days - Reason: Recheck today's complaints Discharge Instructions: - Discharge Summary Sheet sp4 - COVID-19 sp4 Forms: - Patient Portal Instructions sp4 Prescriptions: - Paxlovid 300 mg (150 mg x 2)-100 mg Oral Tablet, Dose Pack - take 1 dose pack by ORAL route as directed on dose pack take TWO 150 mg tablets sp4 of nirmatrelvir with ONE 100 mg tablet of ritonavir twice daily for 5 days; 1 Pack; Refills: 0, Product Selection Permitted - naproxen 500 mg Oral tablet - take 1 tablet by ORAL route every 12 hours as needed for pain; 30 tablet; sp4 Refills: 0, Product Selection Permitted - ondansetron 4 mg Oral Tablet,disintegrating - take 1 tablet by ORAL route 3 times per day for 48 hours PRN nausea; 30 tablet; sp4 Refills: 0, Product Selection Permitted Signatures: Dispatcher [employer] EDMS Jarrett Dobson, BRENNA-C NATURAL GAS ENGINEER-Cla1 Klaudia Caputo RN RN ha1 Mily Merino RN RN pf1 Mike Jennings MD MD sp4
--- NOTE | 2023-02-08 03:15 | ER ---
Nurse's Notes [facility] Name: Simon Sauceda Jr Age: 42 yrs Sex: Male : 1980 Arrival Date: 02/08/2023 Time: 01:29 Bed 15 Private MD: Diagnosis: Other specified viral diseases;Acute COVID-19, fever, body aches Presentation: 02/08 01:33 Chief complaint: Patient states: jerking leg movements upon going to sleep,onset pf1 , worse last night that has progressed to generalized body jerking, also C/O generalized body aches with headache pain of 10,onset Thursday. Patient stated thinks he has serontonin syndrome due to taking Prozac,Effexor and Buspirone. Patient stated stop taking his medication on Thursday of Prozac, Effexor and Buspirone. 01:33 Coronavirus screen: Vaccine status: Patient reports receiving the 2nd dose of the covid pf1 vaccine. [employer] Client denies travel out of the [place] in the last 14 days. Client presents with at least one sign or symptom that may indicate coronavirus-19. Ebola Screen: Patient negative for fever greater than or equal to 101.5 degrees Fahrenheit, and additional compatible Ebola Virus Disease symptoms. Initial Sepsis Screen: Does the patient meet any 2 criteria? HR > 90 bpm. No. Patient's initial sepsis screen is negative. Does the patient have a suspected source of infection? No. Patient's initial sepsis screen is negative. Risk Assessment: Do you want to hurt yourself or someone else? Patient reports no desire to harm self or others. 01:33 Method Of Arrival: Wheelchair pf1 01:33 Acuity: ESTER 3 pf1 02:00 Onset of symptoms was February 07, 2023. ha1 Historical: - Allergies: 02:07 No Known Allergies; pf1 - PMHx: 02:07 Anemia; Asthma; Enlarged Heart; fatty liver; Hypertensive disorder; Kidney stones; pf1 Anxiety; Headache; Bipolar disorder; scoliosis; Chronic back pain; - PSHx: 02:07 Cholecystectomy; kidney stone removal; pf1 - Immunization history:: Adult Immunizations up to date, Client reports receiving the 2nd dose of the Covid vaccine, Last tetanus immunization: < 5 years ago Flu vaccine is not up to date. - Social history:: Smoking status: Patient reports the use of cigarette tobacco products, smokes one-half pack cigarettes per day, Patient/guardian denies using alcohol, street drugs. - Family history:: not pertinent. Screenin:02 Abuse screen: Denies threats or abuse. Denies injuries from another. Nutritional ha1 screening: No deficits noted. Tuberculosis screening: No symptoms or risk factors identified. 03:02 [facility] ED Fall Risk Assessment (Adult) History of falling in the last 3 months, ha1 including since admission Yes- single mechanical fall (1 pt). Assessment: 01:33 General: Appears uncomfortable, Behavior is anxious. Pain: Complains of pain in back ha1 Pain does not radiate. Pain currently is 10 out of 10 on a pain scale. Quality of pain is described as throbbing, Pain began 3 hours ago. Is continuous. Neuro: Level of Consciousness is awake, alert, obeys commands, Oriented to person, place, time, situation. Cardiovascular: Patient's skin is warm and dry. Respiratory: Airway is patent Respiratory effort is even, unlabored, Respiratory pattern is regular, symmetrical. GI: Abdomen is round non-distended. : No signs and/or symptoms were reported regarding the genitourinary system. Derm: Skin is pink, warm \T\ dry. Musculoskeletal: Circulation, motion, and sensation intact. Range of motion: intact in all extremities, Reports pain in back. 02:30 Reassessment: Patient and/or family updated on plan of care and expected duration. Pain ha1 level reassessed. Patient is alert, oriented x 3, equal unlabored respirations, skin warm/dry/pink. 03:30 Reassessment: Patient and/or family updated on plan of care and expected duration. Pain ha1 level reassessed. Patient is alert, oriented x 3, equal unlabored respirations, skin warm/dry/pink. Vital Signs: 01:33 BP 149 / 97; Pulse 122; Resp 18; Temp 100.7(O); Pulse Ox 98% on R/A; Weight 108.41 kg; pf1 Height 5 ft. 5 in. ; Pain 10/10; 02:30 BP 147 / 90; Pulse 125; Resp 18 S; Pulse Ox 99% on R/A; ha1 03:01 Temp 100.2; ha1 03:28 BP 149 / 92; Pulse 111; Resp 18; Pulse Ox 100% ; pf1 01:33 Body Mass Index 39.77 (108.41 kg, 165.1 cm) pf1 01:33 Pain Scale: Adult pf1 ED Course: 01:31 Patient arrived in ED. kj1 01:33 Arm band placed on right wrist. ha1 01:34 Mike Jennings MD is Attending Physician. sp4 01:50 Inserted saline lock: 20 gauge in right antecubital area, using aseptic technique. pf1 Blood collected. 01:55 Klaudia Caputo, RN is Primary Nurse. ha1 01:55 Lactate w/ 2H reflex if indic. Sent. ha1 02:07 Triage completed. pf1 02:13 Lactate w/ 2H reflex if indic. Sent. wm 02:13 Influenza Screen (a \T\ B) Sent. wm 02:13 SARS RAPID Sent. wm 02:22 EKG done, by ED staff, reviewed by Mike Jennings MD. wm 02:22 Bed in low position. Call light in reach. Side rails up X2. Adult w/ patient. Client wm placed on continuous cardiac and pulse oximetry monitoring. NIBP monitoring applied. environmental monitoring technician on. 02:25 Influenza Screen (a \T\ B) Sent. ha1 02:25 SARS RAPID Sent. ha1 02:25 Acetaminophen Sent. ha1 02:25 Alcohol Level Sent. ha1 02:48 XRAY Chest (1 view) In Process Unspecified. EDMS 03:29 No provider procedures requiring assistance completed. IV discontinued, intact, pf1 bleeding controlled, No redness/swelling at site. Pressure dressing applied. 03:32 Provided Education on: Covid-19 education and prescription education. pf1 Administered Medications: 01:50 Drug: NS 0.9% IV 1000 ml Route: IV; Rate: 1 bolus; Site: right antecubital; ha1 03:31 Follow up: Response: No adverse reaction; Marked relief of symptoms; IV Status: pf1 Completed infusion; IV Intake: 1000ml 01:50 Drug: NS 0.9% IV 1000 ml Route: IV; Rate: 125 ml/hr; Site: right antecubital; ha1 03:30 Follow up: Response: No adverse reaction; Marked relief of symptoms pf1 03:31 Follow up: IV Status: Completed infusion pf1 01:50 Drug: Acetaminophen PO 1000 mg Route: PO; ha1 02:50 Follow up: Response: No adverse reaction; Marked relief of symptoms pf1 01:55 Drug: Ativan IVP 2 mg Route: IVP; Site: right antecubital; ha1 02:50 Follow up: Response: No adverse reaction; Marked relief of symptoms pf1 02:00 Drug: Ondansetron IVP 4 mg Route: IVP; Site: right antecubital; ha1 03:00 Follow up: Response: No adverse reaction; Marked relief of symptoms; Nausea is decreasedpf1 02:02 Drug: Ketorolac IVP 30 mg Route: IVP; Site: right antecubital; ha1 03:00 Follow up: Response: No adverse reaction; Marked relief of symptoms; Pain is decreased pf1 Medication: 03:32 VIS not applicable for this client. pf1 Intake: 03:31 IV: 1000ml; Total: 1000ml. pf1 Outcome: 03:15 Discharge ordered by . sp4 03:32 Discharged to home ambulatory, with family. pf1 03:32 Condition: improved 03:32 Discharge instructions given to patient, family, Instructed on discharge instructions, follow up and referral plans. Demonstrated understanding of instructions, follow-up care, medications, Prescriptions given X 3. 03:32 Patient left the ED. pf1 Signatures: Dispatcher [employer] EDMS Conchis Lopez Wendy wm Ayala, Heidy, RN RN ha1 Mily Merino RN RN pf1 Mike Jennings MD MD sp4
[2023-02-08 03:16] LABS: Barbiturates NEGATIVE (NEGATIVE); Benzodiazepines NEGATIVE (NEGATIVE); Cocaine NEGATIVE (NEGATIVE); METHAMPHETAM NEGATIVE (NEGATIVE); Methadone NEGATIVE (NEGATIVE); Opiates NEGATIVE (NEGATIVE); Phencyclidine NEGATIVE (NEGATIVE); THC Cannibis NEGATIVE (NEGATIVE)
[2023-02-08 03:42] VITALS: TEMP 100.2
[2023-02-08 03:44] VITALS: BP 149/92; O2SAT 100
--- NOTE | 2023-02-09 11:25 | RAD REPORT ---
EXAM DESCRIPTION: RAD - Chest Single View - 02/08/2023 2:46 am CLINICAL HISTORY: 42 years Male tremors, fever COMPARISON: None FINDINGS: Lung volumes diminished. Mild bronchovascular crowding. Cardiac silhouette is normal in size. No pneumothorax. No large pleural effusion. No focal consolidation. No acute bony finding. IMPRESSION: 1. No focal consolidation. 2. Lung volumes with associated hypoventilatory changes. Electronically signed by: Bina Granados MD 02/08/2023 3:19 AM CDT Due to temporary technical issues with the PACS/Fluency reporting system, reports are being signed by the in house radiologist without review as a courtesy to ensure prompt reporting. The interpreting r adiologist is fully responsible for the content of the report.
--- NOTE | 2023-02-09 19:07 | EKG ---
Test Date: 2023-02-08 Test Time: 02:22:05 [employer] Analyst: MEASUREMENT RESULTS: Intervals: Rate: 116 NC: 164 QRSD: 78 QT: 310 QTc: 430 [place]: P: 51 NC: 164 QRS: 31 T: 13 INTERPRETIVE STATEMENTS: Sinus tachycardia Otherwise normal ECG Compared to ECG 02/28/2022 13:39:29 Sinus rhythm no longer present ST (T wave) deviation no longer present Electronically Signed On 02-09-23 19:04:28 CDT by Clinton Umanzor
== END 2023-02-08 03:32 | disposition home or self-care (01) ==
LOC: ER 01:29
DX: U07.1 COVID-19 (principal); R52 Pain, unspecified; I10 Essential (primary) hypertension; F31.9 Bipolar disorder, unspecified; F17.210 Nicotine dependence, cigarettes, uncomplicated
CPT/HCPCS: 96361; 93005; 85025; 81001; 80048; 36415; 83735; 85610; 80076; 83605; 84484; 83880; 80307; 87804 ×2; 71045; 96375; 96374; 99285; 80143; 80179; 82077; 87811; J2405; J7030

== ENCOUNTER 2023-04-20 12:40 | Emergency (ER) | payer SELFPAY ==
--- OUTSIDE RECORDS SUMMARY | 2023-04-20 12:44 | XMS REPORT | Continuity of Care Document ---
:1980 Author Organization [facility] t Address [address] [facility] [address] [place] [address] Care Team Providers Name Role Phone Pcp, Patient Does Not Have A Primary Care Physician +[id number] RADIOLOGY Attending Clinician Unavailable Radiology Attending Clinician Unavailable Cecily Carrera PA-C Attending Clinician CECILY CARRERA Attending Clinician Unavailable Unknown, Attending Attending Clinician Unavailable Doctor Unassigned, [place] Attending Clinician Unavailable Lana SCHWAB Attending Clinician [...] Date Expiration Date S eduardo [employer] [place] - [id number] 2022 00:00:00 OUT OF STATE Problems Condition Condition Condition Status Onset Resolution Last Treating Co mments Source Name Details Category Date Date Treatment Clinician Date Obesity Obesity Disease Recurre Univer s (BMI (BMI nce 2-20 ity of 30-39.9) 30-39.9) 00:00: [address] Allergies, Adverse Reactions, Alerts Allergy Allergy Status Severity Reaction(s) Onset Inactive Treating Comm ents Source Name Type Date Date Clinician NO KNOWN Drug Active Univers ALLERGIE Class ity of S [facility] Social History Social Habit Start Date Stop Date Quantity Comments Source Exposure to 2022-09-28 2022-10-08 Not sure [facility] SARS-CoV-2 00:00:00 13:40:00 [facility] (event) [place] Tobacco use and 2021-02-22 2021-02-22 Smokeless tobacco Un iversity of exposure 00:00:00 00:00:00 non-user [facility] Sex Assigned At [birth year] Universit y of 00:00:00 00:00:00 [facility] Smoking Status Start Date Stop Date Source Unknown [facility] Never smoked tobacco [facility] Medications Ordered Filled Start Stop Current Ordering Indication Dosage Frequency Signature Comments Components Source Medication Medication Date Date Medication? Clinician (SIG) Name Name bromphenira Yes [id number] 5mL Take 5 mL Univers mine-pseudo 4-11 by mouth 3 it y of ephedrine-D 00:00: (three) [place] as M (BROMFED 00 times Medical DM) 2-30-10 daily as Bran ch mg/5 mL needed for syrup Cold symptoms. bromphenira Yes [id number] 5mL Take 5 mL Univers mine-pseudo 4-11 by mouth 3 it y of ephedrine-D 00:00: (three) [place] as M (BROMFED 00 times Medical DM) 2-30-10 daily as Bran ch mg/5 mL needed for syrup Cold symptoms. bromphenira Yes [id number] 5mL Take 5 mL Univers mine-pseudo 4-11 [...] :00 dose, On Medica l [address] [facility] 03/31/22 at 1615, GERA
Re ason for Anti-Infec tive: Documented Infection< br>Documen funmilayo Infection Site: Urine
D uration of Therapy: 10 days cefTRIAXone 2021-05 No 500mg 500 mg, IV Univers (ROCEPHIN) 05-31 Piggyback, it y of 500 mg in 22:15: 22:29 [place]CE[place] NaCl 0.9% 00 :00 dose, [facility] [address] [facility] piggyback 03/31/22 at 1615, Administer over 30 Minutes, 100 mL
R kyle for Anti-Infec tive: Documented Infection< br>Documen funmilayo Infection Site: Urine<br&g t;Duration of Therapy: Other (see Comments) ketorolac 2021-05 No 15mg 15 mg, Unive rs (TORADOL) 05-31 Slow IV ity of injection 20:30: 19:38 Push, [place] 15 mg 00 :00 ONCE, 1 Medical dose, On [facility] 03/31/22 at 1430, GERA NaCl 0.9% 2021-05 No 1000mL at 999 Uni vers (NS) bolus 05-31 mL/hr, ity of infusion 20:30: 20:39 1,000 mL, Yimi as 1,000 mL 00 :00 IV Medical Infusion, [place] ONCE, 1 dose, On [facility] 03/31/22 at 1430, STAT aspirin 2021-05 No 324mg 324 mg, Unive rs chewable 05-31 Oral, ity of tablet 324 20:00: 19:04 ONCE, 1 [place] as mg 00 :00 dose, On Medical [facility] 03/31/22 at 1400, Routine nitroglycer 2021-05- No .4mg 0.4 mg, Un aquilino in 05-31 Sublingual ity of (NITROSTAT) 19:00: 19:04 , ONCE, 1 [place] sublingual 00 :00 dose, On Medic al tablet 0.4 Mon Branch mg 03/31/22 at 1300, GERA ibuprofen 2021-05 Yes [id number] 600mg Take 1 Univers 600 mg 1-07 tablet by ity of tablet 00:00: mouth [place] 00 every 6 Medical (six) Branch hours as needed for Pain (scale 4-6). doxycycline 2021-05 Yes [id number] 100mg Take 1 Univers hyclate 100 1-07 capsule by it y of mg capsule 00:00: mouth in [place] as 00 the Medical morning Branch and 1 capsule in the evening. ibuprofen 2021-05 Yes [id number] 600mg Take 1 Univers 600 mg 1-07 tablet by ity of tablet 00:00: mouth [place] 00 every 6 Medical (six) Branch hours as needed for Pain (scale 4-6). doxycycline 2021-05 Yes [id number] 100mg Take 1 Univers hyclate 100 1-07 capsule by it y of mg capsule 00:00: mouth in [place] as 00 the Medical morning Branch and 1 capsule in the evening. ibuprofen 2021-05 Yes [id number] 600mg Take 1 Univers 600 mg 1-07 tablet by ity of tablet 00:00: mouth [place] 00 every 6 Medical (six) Branch hours as needed for Pain (scale 4-6). doxycycline 2021-05 Yes [id number] 100mg Take 1 Univers hyclate 100 1-07 capsule by it y of mg capsule 00:00: mouth in [place] as 00 the Medical morning Branch and 1 capsule in the evening. ibuprofen 2021-05 Yes [id number] 600mg Take 1 Univers 600 mg 1-07 tablet by ity of tablet 00:00: mouth [place] 00 every 6 Medical (six) Branch hours as needed for Pain (scale 4-6). doxycycline 2021-05 Yes [id number] 100mg Take 1 Univers hyclate 100 1-07 capsule by it y of mg capsule 00:00: mouth in [place] as 00 the Medical morning Branch and 1 capsule in the evening. ibuprofen 2021-05 Yes [id number] 600mg Take 1 Univers 600 mg 1-07 tablet by ity of tablet 00:00: mouth [place] 00 every 6 Medical (six) Branch hours as needed for Pain (scale 4-6). doxycycline 2021-05 Yes [id number] 100mg Take 1 Univers hyclate 100 1-07 capsule by it y of mg capsule 00:00: mouth in [place] as 00 the Medical morning Branch and 1 capsule in the evening. rosuvastati 2021-05- No [id number] 10mg Take 1 Univers n (CRESTOR) 0-16 11-16 tablet by it y of 10 mg 00:00: 05:59 mouth at [place] tablet 00 :00 bedtime Medical for 30 Branch days. rosuvastati 2021-05- No [id number] 10mg Take 1 Univers n (CRESTOR) 0-16 11-16 tablet by it y of 10 mg 00:00: 05:59 mouth at [place] tablet 00 :00 bedtime Medical for 30 Branch days. dexamethaso 2021- No 10mg 10 mg, Uni vers ne 08-29 Oral, ity of (DECADRON 23:00: 21:53 ONCE, 1 [place] PHOSPHATE) 00 :00 dose, On Medic al injection [facility] 08/29/21 Bran ch 10 mg at 1800, Routine ketorolac 2021- No 30mg 30 mg, Unive rs (TORADOL) 08-29 Intramuscu ity of injection 23:00: 21:53 lar, ONCE, [place] 30 mg 00 :00 1 dose, On Medical [facility] 08/29/21 Branch at 1800, GERA ibuprofen Yes [id number] 800mg Take 1 U nivers 800 mg 4-07 tablet by ity of tablet 00:00: mouth [place] 00 every 6 Medical (six) Branch hours as needed for Pain (scale 4-6). ibuprofen Yes [id number] 800mg Take 1 U nivers 800 mg 4-07 tablet by ity of tablet 00:00: mouth [place] 00 every 6 Medical (six) Branch hours as needed for Pain (scale 4-6). ibuprofen Yes [id number] 800mg Take 1 U nivers 800 mg 4-07 tablet by ity of tablet 00:00: mouth [place] 00 every 6 Medical (six) Branch hours as needed for Pain (scale 4-6). ibuprofen 2021-0 Yes [id number] 800mg Take 1 U nivers 800 mg 4-07 tablet by ity of tablet 00:00: mouth [place] 00 every 6 Medical (six) Branch hours as needed for Pain (scale 4-6). ibuprofen 2021-0 Yes [id number] 800mg Take 1 U nivers 800 mg 4-07 tablet by ity of tablet 00:00: mouth [place] 00 every 6 Medical (six) Branch hours as needed for Pain (scale 4-6). ibuprofen 0 Yes [id number] 800mg Take 1 U nivers 800 mg 4-07 tablet by ity of tablet 00:00: mouth [place] 00 every 6 Medical (six) Branch hours as needed for Pain (scale 4-6). ibuprofen 2021-0 Yes [id number] 800mg Take 1 U nivers 800 mg 4-07 tablet by ity of tablet 00:00: mouth [place] 00 every 6 Medical (six) Branch hours as needed for Pain (scale 4-6). methocarbam 2021- No [id number] 1500mg Take 2 Univers oL 750 mg [...] ACID ORAL 0-01 mouth. ity of 10:19: [place] 15 Medical Branch trazodone 2020-05 Yes Take by Unive rs HCl 0-01 mouth. ity of (TRAZODONE 10:19: [place] ORAL) 15 Medical Branch VALPROIC 2020-05 Yes Take by Univer s ACID ORAL 0-01 mouth. ity of 10:19: [place] 15 Medical Branch trazodone 2020-05 Yes Take by Unive rs HCl 0-01 mouth. ity of (TRAZODONE 10:19: [place] ORAL) 15 Medical Branch VALPROIC 2020-05 Yes Take by Univer s ACID ORAL 0-01 mouth. ity of 10:19: [place] 15 Medical Branch trazodone 2020-05 Yes Take by Unive rs HCl 0-01 mouth. ity of (TRAZODONE 10:19: [place] ORAL) 15 Medical Branch VALPROIC 2020-05 Yes Take by Univer s ACID ORAL 0-01 mouth. ity of 10:19: [place] 15 Medical Branch trazodone 2020-05 Yes Take by Unive rs HCl 0-01 mouth. ity of (TRAZODONE 10:19: [place] ORAL) 15 Medical Branch VALPROIC 2020-05 Yes Take by Univer s ACID ORAL 0-01 mouth. ity of 10:19: [place] 15 Medical Branch trazodone 2020-05 Yes Take by Univ ers HCl 0-01 mouth. ity of (TRAZODONE 10:19: [place] ORAL) 15 Medical Branch VALPROIC 2020-05 Yes Take by Univer s ACID ORAL 0-01 mouth. ity of 10:19: [place] [facility] losartan 50 Yes 50mg Take [...] 8-10 by mouth ity of 00:00: daily. [place] [facility] losartan 50 2020-0 Yes 50mg Take 50 mg Univers mg tablet 8-10 by mouth ity of 00:00: daily. [place] [facility] Branch losartan 50 2020-0 Yes 50mg Take 50 mg Univers mg tablet 8-10 by mouth ity of 00:00: daily. [place] [facility] losartan 50 2020-0 Yes 50mg Take 50 mg Univers mg tablet 8-10 by mouth ity of 00:00: daily. [place] [facility] losartan 50 0 Yes 50mg Take 50 mg Univers mg tablet 8-10 by mouth ity of 00:00: daily. [place] [facility] losartan 50 Yes 50mg Take 50 mg Univers mg tablet 8-10 by mouth ity of 00:00: daily. [place] [facility] aspirin 2020- No 324mg 324 mg, Unive rs chewable 2-05 02-05 Oral, ity of tablet 324 04:30: 03:44 ONCE, 1 [place] as mg 00 :00 dose, [facility] 06/28/20 at Branch 2230, Routine trazodone 2020-0 Yes Take by Unive rs HCl 1-12 mouth. ity of (TRAZODONE 17:27: [place] ORAL) [address] [place] [address] trazodone 2020-0 Yes Take by Unive rs HCl 1-12 mouth. ity of (TRAZODONE 17:27: [place] ORAL) [address] [place] [address] trazodone 2020-0 Yes Take by Unive rs HCl 1-12 mouth. ity of (TRAZODONE 17:27: [place] ORAL) [address] [place] [address] Vital Signs Vital Name Observation Time Observation Value Comments Source Systolic blood 2022-09-02 19:36:00 130 mm[Hg] Univer sity of pressure [facility] Diastolic blood 2022-09-02 19:36:00 91 mm[Hg] Unive rsity of pressure [facility] Heart rate 2022-09-02 19:36:00 95 [facility] Body temperature 2022-09-02 19:36:00 36.94 Na[facility] 2022-09-02 19:36:00 16 /min Univ ersity of [place] [facility] Body height 2022-09-02 19:36:00 165.1 cm Universi ty [facility] [place] [facility] Body weight 2022-09-02 19:36:00 112.294 kg Universi ty of [place] [facility] BMI 2022-09-02 19:36:00 41.20 kg/m2 Universi ty of [place] [facility] Oxygen saturation in 2022-09-02 19:36:00 97 /min University of Arterial blood by [place] Medi nia Pulse oximetry Branch Systolic blood [...] 98 /min University of Arterial blood by [place] [employer] Pulse oximetry Branch Body temperature 2022-03-31 [...] 2022-03-09 22:00:00 22 /min Univ ersity of [place] [facility] Oxygen saturation in 2022-03-09 22:00:00 97 /min University of Arterial blood by [place] Medi nia Pulse oximetry Branch Body temperature 2022-03-09 18:50:00 36.78 Naomi Univ ersity of [place] [facility] Body height 2022-03-09 18:50:00 165.1 cm Universi ty [facility] [place] [facility] Body weight 2022-03-09 18:50:00 108.863 kg [facility]i ty [facility] [place] [facility] BMI 2022-03-09 18:50:00 39.94 kg/m2 Universi ty [facility] [place] [facility] Systolic blood 2021-08-29 22:57:00 152 mm[Hg] Univer sity of pressure [place] [facility] Diastolic blood 2021-08-29 22:57:00 96 mm[Hg] Unive rsity of pressure [place] [facility] Heart rate 2021-08-29 22:57:00 84 /min [facility]i ty [facility] [place] [facility] Respiratory rate 2021-08-29 22:57:00 18 /min Univ ersity of [place] [facility] Oxygen saturation in 2021-08-29 22:57:00 99 /min University of Arterial blood by [place] [employer] Pulse oximetry Branch Body temperature 2021-08-29 21:06:00 37.22 Naomi Univ ersity of [place] [facility] Body weight 2021-08-29 21:06:00 111.131 kg Universi ty [facility] [place] [facility] BMI 2021-08-29 21:06:00 40.77 kg/m2 [facility]i ty [facility] [place] [facility] Systolic blood 2021-02-22 15:18:00 126 mm[Hg] Univer sity of pressure [place] [facility] Diastolic blood 2021-02-22 15:18:00 85 mm[Hg] Unive rsity of pressure [place] [facility] Heart rate 2021-02-22 15:18:00 88 /min Universi ty [facility] [place] [facility] Body temperature 2021-02-22 15:18:00 36.22 Naomi Univ ersity of [place] [facility] Respiratory rate 2021-02-22 15:18:00 16 /min Univ ersity of [place] [facility] Body height 2021-02-22 15:18:00 165.1 cm [facility]i ty [facility] [place] [facility] Body weight 2021-02-22 15:18:00 111.449 kg [facility]i ty [facility] [place] [facility] BMI 2021-02-22 15:18:00 40.89 kg/m2 [facility]i [facility] [place] [facility] Oxygen saturation in 2021-02-22 15:18:00 99 /min University of Arterial blood by [place] Pulse oximetry Branch Systolic blood 2020-06-29 06:00:00 121 mm[Hg[facility] Di[facility] blood 2020-06-29 06:00:00 94 mm[Hg] [facility] Heart rate 2020-06-29 06:00:00 83 /min [facility] Respiratory rate 2020-06-29 06:00:00 20 /min [facility] Oxygen saturation in 2020-06-29 06:00:00 97 /min [facility] Arterial blood by [facility] Pulse oximetry [place] Body temperature 2020-06-29 02:47:00 36.78 Naomi [facility] Body height 2020-06-29 02:47:00 165.1 cm [facility] Body weight 2020-06-29 02:47:00 104.327 kg [facility] BMI 2020-06-29 02:47:00 38.27 kg/m2 [facility] Procedures Procedure Date / Time Performing Clinician Source Performed XR CHEST 2 2022-10-08 18:50:09 Requisition, Paper [facility] POCT MOLECULAR FLU 2022-09-02 19:45:00 Unknown, Attending [facility] ASSIGNMENT OF BENEFITS 2022-09-02 19:30:06 Doctor Unassigned, Un [facility] [place] [facility] TROPONIN I 2022-03-31 21:01:00 Lana Schwab [facility] URINALYSIS 2022-03-31 20:40:00 Lana Schwab [facility] D-DIMER 2022-03-31 19:32:00 Lana Schwab [facility] XR CHEST 1 2022-03-31 19:06:34 Lana Schwab [facility] MAGNESIUM 2022-03-31 18:51:00 Lana Schwab Felicity [facility] TROPONIN I 2022-03-31 18:51:00 Lana Schwab Felicity [facility] COMP. METABOLIC PANEL 2022-03-31 18:51:00 Lana Schwab [facility] ([id number]) Medical Branch CBC WITH DIFF 2022-03-31 18:51:00 Lana Schwab [facility] N-TERMINAL PRO-BNP 2022-03-31 18:51:00 Lana Schwab [facility] CONSENT/REFUSAL FOR 2022-03-31 18:30:49 Doctor Unasshumberto, [facility] DIAGNOSIS AND TREATMENT [place] Medical [place] TROPONIN I 2022-03-09 21:09:00 Singer [facility] LIPID PANEL ([id number])(TOTAL 2022-03-09 19:48:[address] [facility] CHOLESTEROL, [facility] Branch TRIGLYCERIDES, HDL) GLYCOSYLATED HEMOGLOBIN 2022-03-09 19:48:00 Singer Kailee [facility] (A1C) [facility] XR CHEST 1 VW 2022-03-09 19:01:15 Singer [facility] LIPASE 2022-03-09 18:52:00 Singer [facility] MAGNESIUM 2022-03-09 18:52:00 Singer [facility] TROPONIN I 2022-03-09 18:52:00 Singer [facility] COMP. METABOLIC PANEL 2022-03-09 18:52:00 Kailee Melendrez [facility] ([id number]) Medical Branch CBC WITH DIFF 2022-03-09 18:52:00 Singer [facility] PROTHROMBIN TIME / INR 2022-03-09 18:52:00 Singer Kailee [facility] ACTIVATED PARTIAL 2022-03-09 18:52:00 Singer [facility] THRMPLAS BULMARO [facility] N-TERMINAL PRO-BNP 2022-03-09 18:52:00 Singer Kailee [facility] CONSENT/REFUSAL FOR 2022-03-09 18:39:49 Doctor Unassigned, [facility] DIAGNOSIS AND TREATMENT [place] Medical Branch CT CERVICAL SPINE WO 2021-08-29 22:12:00 Eunice Rowley [facility] CONTRAST Medical Branch CT HEAD WO CONTRAST 2021-08-29 22:12:00 Eunice Rowley [facility] NOTICE OF PRIVACY 2021-08-29 21:02:46 Doctor Unassigned, [facility] PRACTICES [place] Medical Branch CONSENT/REFUSAL FOR 2021-08-29 21:02:29 Doctor Unassigned, [facility] DIAGNOSIS AND TREATMENT [place] Medical Branch POCT GRP A STREP 2021-02-22 15:20:00 Dani [facility] (MOLECULAR) Medical Branch COVID-19 (MOLECULAR 2021-01-27 22:13:00 Martha Louise [facility] TESTING Medical Branch NUCLEIC ACID AMPLIFICATION) LAB ONLY COVID 2021-01-27 22:13:00 [facility] INTERPRETATION [facility] TROPONIN I 2020-06-29 04:27:00 Tran Tobin [facility] XR CHEST 1 VW 2020-06-29 03:41:31 Tran Tobin [facility] LIPASE 2020-06-29 02:55:00 Tran Tobin [facility] TROPONIN I 2020-06-29 02:55:00 Tran Tobin [facility] COMP. METABOLIC PANEL 2020-06-29 02:55:00 Tran Tobin [facility] ([id number]) [facility] CBC WITH DIFF 2020-06-29 02:55:00 Tran Tobin [facility] PROTHROMBIN TIME / INR 2020-06-29 02:55:00 Tran Tobin [facility] ACTIVATED PARTIAL 2020-06-29 02:55:00 Tran Tobin [facility] THRMPLAS BULMARO [facility] NOTICE OF PRIVACY 2020-06-29 02:39:50 Doctor Unassigned, [facility] PRACTICES [place] Medical Branch CONSENT/REFUSAL FOR 2020-06-29 02:39:30 Doctor Unassigned, [facility] DIAGNOSIS AND TREATMENT [place] Medical Branch COVID-19 (PCR MOLECULAR 2019-12-06 14:49:00 Mohit Rowan [facility] TESTING) Medical Branch Encounters Start End Encounter Admission Attending Care Care Encounter Source Date/Time Date/Time Type Type Clinicians Facility Department ID 2023-02-10 2023-02-10 Outpatient [facility] [id number] Jim 10:07:08 10:07:08 [id number] F Homero 2023-02-05 2023-02-05 Outpatient S[facility] [id number] Jim 14:27:55 14:27:55 [id number] F Homero 2022-12-20 2022-12-20 Outpatient [facility] [id number] Jim 10:46:43 10:46:43 [id number] F Homero 2022-10-08 2022-10-08 Outpatient R RADIOLOGY [facility] [id number] Univers 13:41:35 23:59:00 ity of [facility] 2022-10-08 2022-10-08 Hospital Radiology [facility] [id number] Univers 13:30:00 23:59:00 Encounter ANGELO 350.1.13.10 ity of [place].2.[place].2.[place] [id number] [address] 2022-09-04 2022-09-04 [facility]phone [facility] [id number] Univers 00:00:00 00:00:00 Cecily HEALTH 350.1.13.10 it y [facility] 4.2.7.2.686 [place] as RODRÍGUEZ?BLEA [id number] [address] MEDICAL OFFICE [facility] 2022-09-02 2022-09-02 [facility] [id number] Univers 14:40:00 15:17:11 [facility] 2022-09-02 2022-09-02 [facility] [id number] Univers 14:40:00 15:17:11 Care Unknown, Attending HEALTH 350.1.13.10 ity of [place] 4.2.7.2.686 [place] as RODRÍGUEZ?BLEA [id number] [address] MEDICAL OFFICE BUILDING 2022-09-02 2022-09-02 Orders Doctor CHU [id number] Univers 00:00:00 00:00:00 Only Unassigned, LION 350.1.13.10 ity of [place] [facility] 4.2.7.2.686 [place] as [id number] [address] 2022-03-31 2022-03-31 Emergency X Lana SCHWAB [facility] ERT [id number] Univers 12:37:00 16:32:00 ity of [facility] 2022-03-31 2022-03-31 Emergency Lana Schwab [facility] 1.2.840.114 [id number] Univers 12:37:00 16:32:00 Felicity ANGELO 350.1.13.10 i ty of [place] [id number] [address] 2022-03-09 2022-03-09 Emergency X [facility] ERT [id number] Univers 13:45:00 17:27:00 KAILEE aleksey [facility] 2022-03-09 2022-03-09 Emergency [facility] [id number] Univers 13:45:00 17:27:00 Kailee STEPHENS 350.1.13.10 i ty of [place].2.[place].2.[place] C[place] [id number] [address] 2021-08-29 2021-08-29 Emergency [facility] [id number] Univers 16:09:00 17:59:00 Eunice STEPHENS 350.1.13.10 ity of [place] 4[place].2.[place] [id number] [address] 2021-08-29 2021-08-29 Emergency X [facility] ERT [id number] Univers 16:09:00 17:59:00 EUNICE ryder [facility] 2021-08-29 2021-08-29 Orders Doctor CHU [id number] [id number] Univers 00:00:00 00:00:00 Only Unassigned, LION 350.1.13.10 ity of [place] [facility] 4.2.7.2.686 Yimi as [id number] [address] 2021-02-22 2021-02-22 Urgent Cora Ordoñez [facility] 1.2.840. 114 [id number] Univers 10:12:18 10:32:18 Care Unknown, Attending Health 350.1.13.10 ity of [place] 4.2.7.2.686 Yimi as Rodríguez?Blea [id number] [address] Medical Office [facility] 2021-02-22 2021-02-22 Outpatient R OBINNA, [facility] [id number] Univers 10:20:00 10:20:00 ATTENDING ity [facility] 2021-01-28 2021-01-28 Telephone Pcp, KIMBERLEY [id number] Univers 00:00:00 00:00:00 Patient LION 350.1.13.[address] [facility] [place].2.[place] A [id number] [facility] 019 [place] 2021-01-27 2021-01-27 Outpatient R DANI [facility] [id number] Univers 17:40:00 17:40:00 [facility] 2021-01-27 2021-01-27 Laboratory Only, Ang Db Test [facility] 1.2.8 40.114 [id number] Univers 17:04:52 17:19:00 Only Dani Martha [facility] 350.1.13.10 ity of [place] 4.2.7.2.686 Yimi as Rodríguez?Blea [id number] [address] Medical Office [facility] 2020-06-28 2020-06-29 Emergency Yamatthewct, [facility] [id number] Univers 20:43:00 00:35:[address] [place] 350.1.13.10 ity of [place].2.[place] [facility] [id number] [facility] 084 [place] 2020-06-28 2020-06-28 Emergency X [facility] ERT [id number] Univers 20:40:00 20:40:00 ity [facility] 2019-12-06 2020-02-15 Laboratory Only, Web Test [facility] 1.2.840. 114 [id number] Univers 09:48:08 10:30:18 Only Unknown, Attending Health 350.1.13.10 ity of Specialty 4.2.7.2.686 Jaquan [facility] [place] [id number] [place] [address] Branch Results Test Description Test Time Test Comments Results Result Comments Source POCT MOLECULAR FLU 2022-09-02 19:57:37 Test Item Value Reference Range Interpretation Comme nts POCT Molecular FluA (test code = 16926-2) Negative Negative POCT Molecular FluB (test code = 57939-6) Negative Negative Lab Interpretation (test code = 99270-8) Normal [id number] 20:27:03 Test Item Value Reference Interpretation Comments Range D-DIMER (test code = See_Comment [Autom ated [id number]) message] The system which generated this result [...] diagnosis. Lab Interpretation Normal (test code = 76795-4) [facility]2021-[facility]-22 15:31:00 Test Item Value Reference Range Interpretation Comments POCT GP A STREP (test neg Negative - code = 00708-5) Negative ELIAZAR (test code = ELIAZAR) accurate development and interpretation of all internal controls Lab Interpretation Normal (test code = 47303-5) [facility] COVID [id number] 15:24:21COVID DMT InterpretationInterpretation/Recommendations: Molecular NAAT Tests for Active Infection with the SARS-CoV-2 Virus: The current test result is positive for the SARS-CoV-2 virus that causes COVID-19 illness. In bxdc-cl-pielftwt illness, the patient may be considered no [...] COVID-19 testing the patient has had at [facility], including molecular NAAT testing(more commonly known as PCR testing and Rapid ID Now testing) and antibody testing. It does not takeinto account any testing that a patient has had outside of the [facility] medical record. [facility] LABORATORY SERVICESCOVID WkpnlgpUMDP-XjP-1 NAAT (no units) ? ? Date ? Value ? 01/27/2021 ? Positive (A) ? [facility] SERVICESUnNex[facility] HoustonCOVID-19 (MOLECULAR TESTING NUCLEIC ACID AMPLIFICATION)2021-01-28 21:19:22 Test Item Value Reference Range Interpretation Comments SARS-CoV-2 NAAT (test Positive Not Detected A code = 20472-6) ELIAZAR (test code = ELIAZAR) [employer] Aptima SARS-CoV-2 Assay is a nucleic acid amplification test intended for the qualitative detection of RNA from SARS-CoV-2 from nasopharyngeal ([employer]) specimens. ?It is used under Emergency Use [...] indicated. Lab Interpretation Abnormal (test code = 51336-1) [facility] [id number] 05:53:00 Test Item Value Reference Range Interpretation Comments TROPONIN I (test <0.012 See_Comment [Automated code = 9585280340) message] The system which generated this result [...] ? Lab Interpretation Normal (test code = 26943-0) [facility]XR CHEST 1 [id number] 04:16:06Impression: No radiographic evidence for acute cardiopulmonary disease. RL: 460 AFC: [id number] Ordering physician: TRAN TOBIN Indication: Chest pain [...] radiographic evidence for acute cardiopulmonary disease.RL: 460AFC: [id number] signed by Jenelle Del Rio MD, PhD at 06/28/2020 10:16 PMUnNexus Children[facility] Hospital HoustonCBC WITH [id number] 04:03:00 Test Item Value Reference Range Interpretation Comments WBC (test code = See_Comment [Automated 9887-2) message] The sy stem which generated this result transmitted reference range : 4.20 - 10.70 10*3/?L. The reference range was not used to interpret this result as normal/abnormal . RBC (test code = See_Comment [Automated 605-8) message] The sy stem which generated this [...] RDW-SD (test code = 40.3 fL 38.5-51.6 04031-7) RDW-CV (test code = 12.2 % 12.1-15.4 788-0) PLT (test code = See_Comment [Automated 777-3) message] The sy stem which generated this result transmitted reference range : 150 - 328 10*3/ ?L. The reference r vance was not used to interpret this result as normal/abnormal . MPV (test code = 12.6 fL 9.8-13 91596-5) IPF % (test code = 4.8 % 1.2-10.7 Platelet count [id number]) measured by fluorescence method. NRBC/100 WBC (test See_Comment [Automat ed code = 7767914475) message] The system which generated this result transmitted reference range : 0.0 - 10.0 /100 WBCs. The refer ence range was not u sed to interpret th is result as normal/abnormal . NRBC x10^3 (test code <0.01 See_Comment [Auto mated = 8207802643) message] The s ystem which generated this result transmitted reference range : 10*3/?L. The reference range was not used to interpret this result as normal/abnormal . GRAN MAT (NEUT) % 47.4 % (test code = 770-8) IMM GRAN % (test code 0.50 % = 1406415762) LYMPH % (test code = 40.6 % 736-9) MONO % (test code = 8.5 % 5905-5) EOS % (test code = 2.2 % 713-8) BASO % (test code = 0.8 % 706-2) GRAN MAT x10^3(ANC) 4.56 10*3/uL 1.99-6.95 (test code = 9680555410) IMM GRAN x10^3 (test 0.05 10*3/uL 0-0.06 code = 9771443228) LYMPH x10^3 (test code 3.91 10*3/uL 1.09-3.23 H = 731-0) MONO x10^3 (test code 0.82 10*3/uL 0.36-1.02 = 742-7) EOS x10^3 (test code = 0.21 10*3/uL 0.06-0.53 711-2) BASO x10^3 (test code 0.08 10*3/uL 0.01-0.09 = 704-7) REACT LYMPHS (test Rare code = 7978031267) Lab Interpretation Abnormal (test code = 45548-0) [facility] HospitalTROPONIN [id number] 03:49:00 Test Item Value Reference Range Interpretation Comments TROPONIN I (test <0.012 See_Comment [Automated code = 2981884762) message] The system which generated this result [...] ? Lab Interpretation Normal (test code = 79709-7) [facility] HospitalaPTT2021-[facility] 03:44:00 Test Item Value Reference Range Interpretation Comments APTT Patient (test See_Comment [Automat ed code = 3173-2) message] The system which generated this result transmitted reference range : 23 - 38 Seconds . The reference range was not used to interpr et this result as normal/abnormal . ELIAZAR (test code = ELIAZAR) The [facility] patient population mean normal value for aPTT is 30 seconds. Lab Interpretation Normal (test code = 09802-2) [facility] HospitalPROTHROMBIN TIME / [id number] 03:42:00 Test Item Value Reference Range Interpretation Comments PROTIME PATIENT (test See_Comment [Auto mated message] code = 5964-2) The system M[employer] generated this result transmitted ref erence range: 12.0 - 1 4.7 Seconds. The re ference range was not u sed to interpret this result as normal/abnor mal. INR (test code = 6301-6) Nor mal INR <1.1; Warfarin Therap eutic range 2.0 to 3. 0 or 2.5 to 3.5, dep ending upon the indica tions. Lab Interpretation (test Normal code = 56057-9) [facility] HospitalCOMP. METABOLIC PANEL (02506)2020-06-29 03:38:00 Test Item Value Reference Range Interpretation Comments NA (test code = 140 mmol/L 135-145 9352307352) K (test code = 3.7 mmol/L 3.5-5 1581911431) CL (test code = 105 mmol/L 98-108 6147967172) CO2 TOTAL (test code = 27 mmol/L 23-31 9244253564) AGAP (test code = 2-16 6311373508) BUN (test code = 10 mg/dL 7-23 0686107840) GLUCOSE (test code = 140 mg/dL 70-110 H 6553954040) CREATININE (test code = 0.70 mg/dL 0.6-1.25 0942088047) TOTAL BILI (test code = 0.5 mg/dL 0.1-1.6 2617094257) CALCIUM (test code = 9.5 mg/dL 8.6-10.6 9410288849) T PROTEIN (test code = 6.7 g/dL 6.3-8.2 8638418927) ALBUMIN (test code = 4.1 g/dL 3.5-5 0129378256) ALK PHOS (test code = 40 U/L 34-122 5771581916) ALTv (test code = 60 U/L 5-50 H 1742-6) AST(SGOT) (test code = 32 U/L 13-40 5831588446) eGFR Calculation mL/min/1.73m2 (Non-) (test code = 3451434446) eGFR Calculation mL/min/1.73m2 () (test code = 4112197644) ELIAZAR (test code = ELIAZAR) Association of [...] tests). Lab Interpretation Abnormal (test code = 52175-0) [facility] HospitalLIPASE, [id number] 03:38:00 Test Item Value Reference Range Interpretation Comments LIPASE (test code = 6231635448) 100 U/L 0-220 Lab Interpretation (test code = Normal 00382-2) [facility] HospitalCOVID-[facility] (PCR MOLECULAR TESTING)2019-12-09 00:53:00 Test Item Value Reference Range Interpretation Comments SARS-CoV-2 PCR (test Not Detected Not Detected code = 06542-9) ELIAZAR (test code = ELIAZAR) Disclaimer: This test was developed and its performance characteristics determined by [facility]. It has not been [...] testing. Lab Interpretation Normal (test code = 95612-4) [facility]
--- NOTE | 2023-04-20 13:34 | RAD REPORT ---
EXAM DESCRIPTION: CT - Head Brain Wo Cont - 04/20/2023 1:09 pm CLINICAL HISTORY: HEADACHE COMPARISON: HEAD BRAIN W O CONTRAST dated 11/04/2008 TECHNIQUE: Noncontrast head CT images were obtained without IV contrast. Multiplanar reformats were generated and reviewed. All CT scans are performed using dose optimization technique as appropriate and may include automated exposure control or mA/KV adjustment according to patient size. FINDINGS: No intracranial hemorrhage, mass, or edema. Midline structures are unremarkable. Normal ventricular caliber for age. Nagel-white matter differentiation is preserved, without evidence of acute infarct. No abnormal extra- axial fluid collections. Mastoid air cells and visualized portions of the paranasal sinuses are clear. No acute bony findings. IMPRESSION: No evidence of an acute intracranial process.
[2023-04-20] MEDS ORDERED: NA CHLORIDE 0.9% 1,000 ML ONE (13:35)
[2023-04-20] MEDS ORDERED: dexAMETHasone 10 MG/ML VIAL ONE (13:35)
[2023-04-20] MEDS ORDERED: METOCLOPRAMIDE 10 MG/2mL INJ ONE (13:35)
[2023-04-20] MEDS ORDERED: KETOROLAC 30 MG/ML INJ ONE (13:36)
--- NOTE | 2023-04-20 13:59 | EDPHYS ---
Physician Documentation [facility] Name: Simon Sauceda Jr Age: 43 yrs Sex: Male : 1980 Arrival Date: 04/20/2023 Time: 12:40 Bed IW1 Private MD: ED Physician Roque Lopez HPI: 04/20 13:58 This 43 yrs old Male presents to ER via Ambulatory with complaints of Headache. ms3 13:58 43-year-old male with past medical history of anemia, anxiety, asthma, bipolar, chronic ms3 back pain, enlarged heart, fatty liver presents to the emergency department for headache that has been ongoing for 1 week intermittently. Patient states his previous headaches dissipated quicker than his headache today. Patient states he has taken Excedrin and ibuprofen without relief. Patient states his discomfort is a 6/10 located in the back of his head and migrates around his head. Historical: - Allergies: 12:51 NKA; mb9 - Home Meds: 12:51 losartan 100 mg oral tablet 1 tab daily [Active]; mb9 12:52 simvastatin 20 mg Oral tablet [Active]; mb9 - PMHx: 12:51 Anemia; Anxiety; Asthma; Bipolar disorder; chronic back pain; Enlarged Heart; fatty mb9 liver; headache; Hypertensive disorder; Kidney stones; scoliosis; - PSHx: 12:51 Cholecystectomy; kidney stone removal; mb9 - Immunization history:: Adult Immunizations up to date. - Social history:: Smoking status: Patient denies any tobacco usage or history of. ROS: 13:58 Constitutional: Negative for fever, and chills. Neck: Negative for injury, pain, and ms3 swelling, Cardiovascular: Negative for chest pain, and palpitations. Respiratory: Negative for shortness of breath, cough, wheezing, and pleuritic chest pain, Abdomen/GI: Negative for abdominal pain, nausea, vomiting, diarrhea, and constipation, MS/Extremity: Negative for injury and deformity, Skin: Negative for injury, rash, and discoloration, Neuro: Negative for headache, weakness, numbness, tingling. 13:58 All other systems are negative, Exam: 13:58 Constitutional: This is a well developed, well nourished patient who is awake, alert, ms3 and in no acute distress. Head/Face: Normocephalic, atraumatic. Eyes: Pupils equal round and reactive to light, extra-ocular motions intact. Lids and lashes normal. Conjunctiva and sclera are non-icteric and not injected. Periorbital areas with no swelling, redness, or edema. Neck: Trachea midline, no cervical lymphadenopathy. Supple, full range of motion without nuchal rigidity, or vertebral point tenderness. No Meningismus. Chest/axilla: Normal chest wall appearance and motion. Nontender with no deformity. Cardiovascular: Regular rate and rhythm with a normal S1 and S2. No gallops, murmurs, or rubs. Normal PMI, no JVD. No pulse deficits. Respiratory: Lungs have equal breath sounds bilaterally, clear to auscultation and percussion. No rales, rhonchi or wheezes noted. No increased work of breathing, no retractions or nasal flaring. Abdomen/GI: Soft, non-tender, with normal bowel sounds. No distension or tympany. No guarding or rebound. No evidence of tenderness throughout. Skin: Warm, dry with normal turgor. Normal color with no rashes, no lesions, and no evidence of cellulitis. MS/ Extremity: Pulses equal, no cyanosis. Neurovascular intact. Full, normal range of motion. Neuro: Awake and alert, GCS 15, oriented to person, place, time, and situation. Cranial nerves II-XII grossly intact. Motor strength 5/5 in all extremities. Sensory grossly intact. Cerebellar exam normal. Normal gait. Vital Signs: 12:50 BP 130 / 84; Pulse 95; Resp 18; Temp 98; Pulse Ox 100% ; Weight 108.86 kg; Height 5 ft. mb9 5 in. ; Pain 6/10; 12:50 Body Mass Index 39.94 (108.86 kg, 165.1 cm) mb9 12:50 Pain Scale: Adult mb9 MDM: 12:58 Patient medically screened. ms3 13:58 Differential diagnosis: intracerebral hemorrhage, migraine, neoplasm. Data reviewed: ms3 vital signs, nurses notes, radiologic studies, and as a result, I will discharge patient. I considered the following discharge prescriptions or medication management in the emergency department Medications were administered in the Emergency Department. See MAR. Independent interpretation of the following test(s) in the Emergency Department CT Scan: My interpretation is CT head images reviewed by me do not reveal intracranial hemorrhage. Counseling: I had a detailed discussion with the patient and/or guardian regarding the historical points, exam findings, and any diagnostic results supporting the discharge/admit diagnosis, radiology results, the need for outpatient follow up, to return to the emergency department if symptoms worsen or persist or if there are any questions or concerns that arise at home. Refusal of service: The patient/guardian displays adequate decision making capability and despite a detailed discussion of alternatives, benefits, risks, and consequences refuses: Patient left prior to reassessment. . ED course: Patient left prior to reassessment. Patient called and discussed CT head results with patient. Patient states he cannot wait any longer. All questions were answered on the phone.. 04/20 12:59 Order name: CT Head Brain wo Cont; Complete Time: 13:39 ms3 Administered Medications: 13:30 Drug: metoCLOPramide IVP 10 mg IVP once; over 1 to 2 minutes Route: IVP; Site: right nj1 hand; 13:45 Follow up: Response: No adverse reaction nj1 13:30 Drug: NS 0.9% IV 1000 ml IV at 1 bolus Per protocol; 1000 mL bolus Route: IV; Rate: 1 nj1 bolus; Site: right hand; 13:54 Follow up: IV Status: Order to discontinue infusion; IV Intake: 250ml nj1 13:32 Drug: Decadron - Dexamethasone IVP 10 mg IVP once Route: IVP; Site: right hand; nj1 13:45 Follow up: Response: No adverse reaction nj1 13:33 Drug: Ketorolac IVP 10 mg 10 mg IVP once Route: IVP; Site: right hand; nj1 13:45 Follow up: Response: No adverse reaction nj1 13:49 Not Given (Patient Refused): icnmzjjixvkmjbo62 mg IVP once nj1 Disposition Summary: 04/20/23 13:58 Discharge Ordered Notes: Location: Home ms3 Condition: Stable ms3 Diagnosis - Headache ms3 Followup: ms3 - With: Gonzalo Juan MD - When: 2 - 3 days - Reason: Recheck today's complaints Discharge Instructions: - Discharge Summary Sheet ms3 - General Headache Without Cause ms3 Forms: - Medication Reconciliation Form ms3 - Thank You Letter ms3 - Antibiotic Education ms3 - Prescription Opioid Use ms3 - Patient Portal Instructions ms3 - Leadership Thank You Letter ms3 Signatures: Dispatcher [employer] Roque Grider, DO DO ms3 Adry Mccarthy, RN RN mb9 Deborah Cortez RN RN nj1
--- NOTE | 2023-04-20 13:59 | ER ---
Nurse's Notes [facility] Name: Simon Sauceda Jr Age: 43 yrs Sex: Male : 1980 Arrival Date: 04/20/2023 Time: 12:40 Bed IW1 Private MD: Diagnosis: Headache Presentation: 04/20 12:50 Chief complaint: Patient states: "I've had a headache for the past week, body aches, mb9 bilateral ear numbness, and nausea. I've had headaches like this before but not for this long.". Coronavirus screen: Vaccine status: Patient reports receiving the 2nd dose of the covid vaccine. Ebola Screen: No symptoms or risks identified at this time. Initial Sepsis Screen: Does the patient meet any 2 criteria? No. Patient's initial sepsis screen is negative. Does the patient have a suspected source of infection? No. Patient's initial sepsis screen is negative. Risk Assessment: Do you want to hurt yourself or someone else? Patient reports no desire to harm self or others. Onset of symptoms was April 20, 2023. 12:50 Method Of Arrival: Ambulatory 9 12:50 Acuity: ESTER 3 mb9 Triage Assessment: 12:53 Headache History: The patient has had previous headaches. General: Appears in no mb9 apparent distress. Behavior is calm, cooperative, appropriate for age. Pain: Complains of pain in head Pain radiates to neck, eyes Pain currently is 6 out of 10 on a pain scale. Quality of pain is described as aching, dull, Pain began 1 wk Is continuous. Neuro: Hopkins Agitation-Sedation Scale (RASS): 0 - Alert and Calm Level of Consciousness is awake, alert, obeys commands, Oriented to person, place, time, situation, Appropriate for age Reports headache. Cardiovascular: Patient's skin is warm and dry. Respiratory: Airway is patent Respiratory effort is even, unlabored, Respiratory pattern is regular, symmetrical. GI: Reports nausea. Derm: Skin is pink, warm \\T\\ dry. Musculoskeletal: Range of motion: intact in all extremities. Historical: - Allergies: 12:51 NKA; mb9 - Home Meds: 12:51 losartan 100 mg oral tablet 1 tab daily [Active]; mb9 12:52 simvastatin 20 mg Oral tablet [Active]; mb9 - PMHx: 12:51 Anemia; Anxiety; Asthma; Bipolar disorder; chronic back pain; Enlarged Heart; fatty mb9 liver; headache; Hypertensive disorder; Kidney stones; scoliosis; - PSHx: 12:51 Cholecystectomy; kidney stone removal; mb9 - Immunization history:: Adult Immunizations up to date. - Social history:: Smoking status: Patient denies any tobacco usage or history of. Screenin:30 [facility] ED Fall Risk Assessment (Adult) Score/Fall Risk Level 0 - 2 = Low Risk nj1 Oriented to surroundings, Maintained a safe environment, Hourly rounding (assess needs \\T\\ fall precautionary measures) done. Abuse screen: Denies threats or abuse. Denies injuries from another. Nutritional screening: No deficits noted. Tuberculosis screening: No symptoms or risk factors identified. Assessment: 13:30 General: Appears in no apparent distress. comfortable, Behavior is calm, cooperative, nj1 appropriate for age. 13:30 Pain: Complains of pain in head Pain currently is 6 out of 10 on a pain scale. Neuro: nj1 Level of Consciousness is awake, alert, obeys commands, Oriented to person, place, time, situation. Cardiovascular: Patient's skin is warm and dry. Respiratory: Airway is patent Respiratory effort is even, unlabored. 13:45 Reassessment: Patient appears in no apparent distress at this time. Patient is alert, nj1 oriented x 3, equal unlabored respirations, skin warm/dry/pink. Pt steps out of room, states "im ready to go home" This RN attempts to give educations, patient states "im not comfortable, im ready to go home, can you remove this?" This RN attempts education, patient refuses to stay, wants to go home. Vital Signs: 12:50 BP 130 / 84; Pulse 95; Resp 18; Temp 98; Pulse Ox 100% ; Weight 108.86 kg; Height 5 ft. mb9 5 in. ; Pain 6/10; 12:50 Body Mass Index 39.94 (108.86 kg, 165.1 cm) mb9 12:50 Pain Scale: Adult mb9 ED Course: 12:41 Patient arrived in ED. rg4 12:50 Arm band placed on. mb9 12:51 Roque Lopez DO is Attending Physician. ms3 12:51 Triage completed. mb9 13:10 CT Head Brain wo Cont In Process Unspecified. EDMS 13:13 Deborah Cortez, RN is Primary Nurse. nj1 13:30 Patient has correct armband on for positive identification. Bed in low position. Call nj1 light in reach. Provided Education on: call light, fall precautions. 13:46 IV discontinued, intact, bleeding controlled. nj1 13:50 Notified ED physician of other Patient leaving AMA, pt did not want to wait for this RN nj1 to get doctor to talk to him. This RN unable to make patient change his mind about leaving. 13:58 Gonzalo Juan MD is Referral Physician. ms3 14:00 No provider procedures requiring assistance completed. nj1 Administered Medications: 13:30 Drug: metoCLOPramide IVP 10 mg IVP once; over 1 to 2 minutes Route: IVP; Site: right fl1 hand; 13:45 Follow up: Response: No adverse reaction nj1 13:30 Drug: NS 0.9% IV 1000 ml IV at 1 bolus Per protocol; 1000 mL bolus Route: IV; Rate: 1 nj1 bolus; Site: right hand; 13:54 Follow up: IV Status: Order to discontinue infusion; IV Intake: 250ml nj1 13:32 Drug: Decadron - Dexamethasone IVP 10 mg IVP once Route: IVP; Site: right hand; nj1 13:45 Follow up: Response: No adverse reaction nj1 13:33 Drug: Ketorolac IVP 10 mg 10 mg IVP once Route: IVP; Site: right hand; nj1 13:45 Follow up: Response: No adverse reaction nj1 13:49 Not Given (Patient Refused): ldwremjtxyvyrxv96 mg IVP once nj1 Intake: 13:54 IV: 250ml; Total: 250ml. nj1 Outcome: 13:47 AMA AMA form signed nj1 13:58 Discharge ordered by . ms3 14:01 Patient left the ED. nj1 Signatures: Dispatcher [employer] EDMS Tabby Solis rg4 Roque Lopez DO DO ms3 Adry Mccarthy, RN RN mb9 Deborah Cortez, RN RN nj1
[2023-04-20 14:24] VITALS: BP 130/84; TEMP 98; O2SAT 100
== END 2023-04-20 14:01 | disposition home or self-care (01) ==
LOC: ER 12:40
DX: R51.9 Headache, unspecified (principal); I10 Essential (primary) hypertension
CPT/HCPCS: 70450; 96374; 96375; 99283; J1100; J2765; J7030

== ENCOUNTER 2023-11-03 14:23 | Emergency (ER) | payer OTHER, SELFPAY ==
--- OUTSIDE RECORDS SUMMARY | 2023-11-03 14:27 | XMS REPORT | Continuity of Care Document ---
Author Name Unknown Address [address] [place] [address] [facility] Address [address] [place] [address] Care Team Providers Care Policy Loan Calculator Name Role Phone Pcp, Patient Does Not Have A Primary Care Physic russ NICOLA FARIAS Attending Clinician Unavailab maegan RHODES MD Attending Clinician Unavailab IRAJ Farah Attending Clinician Unavailabl e LAB90 Attending Clinician Unavailable YUE HOYOS Attending Clinician Unavaila pam RADIOLOGY Attending Clinician Unavailable Radiology Attending Clinician Unavailable Cecily Carrera PA-C Attending Clinician [phone] CECILY CARRERA Attending Clinician Unavailable Unknown, Attending Attending Clinician Unavailab le Doctor Unassigned, [place] Attending Clinician U navailLana Ortiz Attending Clinician Unavailable Lana Latham Attending Clinician [phone] KAILEE MELENDREZ Attending Clinician Unavailable Kailee Melendrez DO Attending Clinician [phone] Eunice Silva Attending Clinician [phone] EUNICE ROWLEY Attending Clinician Unavaila Cora Whitaker Attending Clinician [phone] UNKNOWN, ATTENDING Attending Clinician Unavailab le Pcp, Patient Does Not Have A Attending Clinician MARTHA LOUISE Attending Clinician Unavailable Only, Ang Db Test Attending Clinician UnavailMartha Zeng MD Attending Clinician Tran Tobin MD Attending Clinician Only, Web Test Attending Clinician Unavailable JIM PINEDA Admitting Clinician Unavailable Lana SCHWAB Admitting Clinician Unavailable KAILEE MELENDREZ Admitting Clinician Unavailable EUNICE ROWLEY Admitting Clinician Unavaila ble Payers Payer Name Policy Type Policy Number Effective Date Expirati on Date Source [facility] [facility] [employer] 9 [id number] 2023 00:00:00 [employer] [place] - OUT OF [place] [id number] 2022 00:00:00 Problems Condition Name Condition Details Condition Category Status Onset Date Resolution Date Last Treatment Date Treating Clinician Comments Source Primary hypertensi on Primary hypertensi on Disease Active 10-08 00:00: 00 Reema Seybold - Externa l Hyperlipid emia Hyperlipid emia Disease Active 10-08 00:00: 00 Reema Escobarold - Externa l Visual disturbanc e Visual disturbanc e Disease Active 10-08 00:00: 00 Reema Metzger - Externa l Family history of thyroid disease Family history of thyroid disease Disease Active 10-08 00:00: 00 Reema Sekaseyold - Externa l Prediabete s Prediabete s Disease Active 10-08 00:00: 00 Reema Pelletierybold - Externa l Obesity (BMI 30-39.9) Obesity (BMI 30-39.9) Disease Recurre fle 2016-0 2-20 00:00: 00 [facility] Allergies, Adverse Reactions, Alerts Allergy Name Allergy Type Status Severity Reaction(s) Onset Date Inactive Date Treating Clinician Comments Source NO KNOWN ALLERGIE S Drug Class Active [facility] Social History Social Habit Start Date Stop Date Quantity Comments Source History of tobacco use Cigarette Smoker Reema morris - External Sexual orientation Lana Metzger - External Cigarettes smoked current (pack per day) - Reported 2023-10-09 00:00:00 2023-10-09 00:00:00 Reema Domenica - External Cigarette pack-years 2023-10-09 00:00:00 2023-10-09 00:00:00 Reema Sekaseyarturo - External History of Social function 2023-10-09 00:00:00 2023-10-09 00:00:00 Reema Pelletierkaseyarturo - External Exposure to SARS-CoV-2 (event) 2022-09-28 00:00:00 2022-10-08 13:40:00 Not sure [facility] Tobacco use and exposure 2021-02-22 00:00:00 2021-02-22 00:00:00 Smokeless tobacco non-user [facility] Sex assigned at 1980 00:00:00 1980 00:00:00 Reema Domenica - Mikala Smoking Status Start Date Stop Date Source Tobacco smoking consumption unknown Reema Metzger - Ext ernal Smokes tobacco daily 2023-10-09 00:00:00 Reema Metzger - External Never smoked tobacco [facility] Medications Ordered Medication Name Filled Medication Name Start Date Stop Date Current Medication? Ordering Clinician Indication Dosage Frequency Signature (SIG) Comments Components Source Losartan Potassium (COZAAR) 100 MG oral Tablet 10-08 00:00: 00 Yes [id number] 100mg Take 1 tablet (100 mg total) by mouth daily. Reema mchugh Meloxicam 15 MG oral Tablet 09-15 00:00: 00 10-08 00:00 :00 No 15mg Take 1 tablet (15 mg total) by mouth daily Take with Meals, STOP IF UPSET STOMACH. Reema Rosario Externa l bromphenira mine-pseudo ephedrine-D M (BROMFED DM) 2-30-10 mg/5 mL syrup 09-02 00:00: 00 Yes [id number] 5mL Take 5 mL by mouth 3 (three) times daily as needed for Cold symptoms. [facility] doxycycline hyclate (Vibramycin ) capsule 100 mg 2021-05 22:15: 00 03-31 22:19 :00 No 100mg 100 mg, Oral, ONCE, 1 dose, On Thu03/31/22 at 1615, GERA
Re ason for Anti-Infec tive: Documented Infection< br>Documen funmilayo Infection Site: Urine
D uration of Therapy: 10 days [facility] cefTRIAXone (ROCEPHIN) 500 mg in NaCl 0.9% (NS) 100 mL piggyback 2021-05 22:15: 00 03-31 22:29 :00 No 500mg 500 mg, IV Piggyback, ONCE, 1 dose, On Thu03/31/22 at 1615, Administer over 30 Minutes, 100 mL
Reas on for Anti-Infec tive: Documented Infection< br>Documen funmilayo Infection Site: Urine
D uration of Therapy: Other (see Comments) [facility] ketorolac (TORADOL) injection 15 mg 2021-05 20:30: 00 03-31 19:38 :00 No 15mg 15 mg, Slow IV Push, ONCE, 1 dose, On Thu03/31/22 at 1430, GERA [facility] NaCl 0.9% (NS) bolus infusion 1,000 mL 2021-05 20:30: 00 03-31 20:39 :00 No 1000mL at 999 mL/hr, 1,000 mL, IV Infusion, ONCE, 1 dose, On Thu03/31/22 at 1430, STAT [facility] aspirin chewable tablet 324 mg 2021-05 20:00: 00 03-31 19:04 :00 No 324mg 324 mg, Oral, ONCE, 1 dose, On Thu03/31/22 at 1400, Routine [facility] nitroglycer in (NITROSTAT) sublingual tablet 0.4 mg 2021-05 19:00: 00 03-31 19:04 :00 No .4mg 0.4 mg, Sublingual , ONCE, 1 dose, On Thu03/31/22 at 1300, GERA [facility] ibuprofen 600 mg tablet 2021-05 00:00: 00 Yes [id number] 600mg Take 1 tablet by mouth every 6 (six) hours as needed for Pain (scale 4-6). [facility] doxycycline hyclate 100 mg capsule 2021-05 00:00: 00 Yes [id number] 100mg Take 1 capsule by mouth in the morning and 1 capsule in the evening. [facility] rosuvastati n (CRESTOR) 10 mg tablet 2021-05 0-16 00:00: 00 04-09 05:59 :00 No [id number] 10mg Take 1 tablet by mouth at bedtime for 30 days. [facility] dexamethaso ne (DECADRON PHOSPHATE) injection 10 mg 08-29 23:00: 00 08-29 21:53 :00 No 10mg 10 mg, Oral, ONCE, 1 dose, On Rani 08/29/21 at 1800, Routine [facility] ketorolac (TORADOL) injection 30 mg 08-29 23:00: 00 08-29 21:53 :00 No 30mg 30 mg, Intramuscu lar, ONCE, 1 dose, On Rani 08/29/21 at 1800, GERA [facility] ibuprofen 800 mg tablet 08-29 00:00: 00 Yes [id number] 800mg Take 1 tablet by mouth every 6 (six) hours as needed for Pain (scale 4-6). [facility] methocarbam oL 750 mg tablet 08-29 00:00: 00 09-03 04:59 :00 No [id number] 1500mg Take 2 tablets by mouth 2 (two) times daily for 4 days. [facility] trazodone HCl (TRAZODONE ORAL) 2020-05 0-01 10:19: 15 Yes Take by mouth. [facility] losartan 50 mg tablet 8-10 00:00: 00 Yes 50mg Take 50 mg by mouth daily. [facility] aspirin chewable tablet 324 mg 2-05 04:30: 00 06-29 03:44 :00 No 324mg 324 mg, Oral, ONCE, 1 dose, [facility] 06/28/20 at 2230, Routine [facility] trazodone HCl (TRAZODONE ORAL) 12 17:27: 41 Yes Take by mouth. [facility] Vital Signs Vital Name Observation Time Observation Value Comments Jv clark Systolic blood pressure 2023-10-09 15:07:00 124 mm[Hg] Reema Pelletierybo ld - External Diastolic blood pressure 2023-10-09 15:07:00 86 mm[Hg] Reema Pelletierybo ld - External Heart rate 2023-10-09 15:07:00 72 /min Kel y Seybold - External Body temperature 2023-10-09 15:07:00 36.72 Naomi Reema Seybold - External Respiratory rate 2023-10-09 15:07:00 18 /min Reema Seybold - External Body height 2023-10-09 15:07:00 165.1 cm Dilcia ey Seybold - External Body weight 2023-10-09 15:07:00 119.75 kg Dilcia ey Seybold - External BMI 2023-10-09 15:07:00 43.93 kg/m2 Dilcia ey Seybold - External Oxygen saturation in Arterial blood by Pulse oximetry 2023-10-09 15:07:00 98 /min Reema Pelletierybo ld - External Systolic blood pressure 2022-09-02 19:36:00 130 mm[Hg] [facility] Diastolic blood pressure 2022-09-02 19:36:00 91 mm[Hg] [facility] Heart rate 2022-09-02 19:36:00 95 /[facility] 2022-09-02 19:36:00 36.94 Naomi [facility] Respiratory rate 2022-09-02 19:36:00 16 /min [facility] Body height 2022-09-02 19:36:00 165.1 cm [facility] Body weight 2022-09-02 19:36:00 112.294 kg [facility] BMI 2022-09-02 19:36:00 41.20 kg/m2 [facility] Oxygen saturation in Arterial blood by Pulse oximetry 2022-09-02 19:36:00 97 /min [facility] Systolic blood pressure 2022-03-31 22:20:00 111 mm[Hg] [facility] Diastolic blood pressure 2022-03-31 22:20:00 75 mm[Hg] [facility] Heart rate 2022-03-31 22:20:00 83 /min [facility] Respiratory rate 2022-03-31 22:20:00 14 /min [facility] Oxygen saturation in Arterial blood by Pulse oximetry 2022-03-31 22:20:00 98 /min [facility] Body temperature 2022-03-31 18:35:00 37.39 Naomi [facility] Body height 2022-03-31 18:35:00 165.1 cm [facility] Body weight 2022-03-31 18:35:00 108.863 kg [facility] BMI 2022-03-31 18:35:00 39.94 kg/m2 [facility] Systolic blood pressure 2022-03-09 22:00:00 129 mm[Hg] [facility] Diastolic blood pressure 2022-03-09 22:00:00 91 mm[Hg] [facility] Heart rate 2022-03-09 22:00:00 72 /min [facility] Respiratory rate 2022-03-09 22:00:00 22 /min [facility] Oxygen saturation in Arterial blood by Pulse oximetry 2022-03-09 22:00:00 97 /min [facility] Body temperature 2022-03-09 18:50:00 36.78 Naomi [facility] Body height 2022-03-09 18:50:00 165.1 cm [facility] Body weight 2022-03-09 18:50:00 108.863 kg [facility] BMI 2022-03-09 18:50:00 39.94 kg/m2 [facility] Systolic blood pressure 2021-08-29 22:57:00 152 mm[Hg] [facility] Diastolic blood pressure 2021-08-29 22:57:00 96 mm[Hg] [facility] Heart rate 2021-08-29 22:57:00 84 /min [facility] Respiratory rate 2021-08-29 22:57:00 18 /min [facility] Oxygen saturation in Arterial blood by Pulse oximetry 2021-08-29 22:57:00 99 /min [facility] Body temperature 2021-08-29 21:06:00 37.22 Naomi [facility] Body weight 2021-08-29 21:06:00 111.131 kg [facility] BMI 2021-08-29 21:06:00 40.77 kg/m2 [facility] Systolic blood pressure 2021-02-22 15:18:00 126 mm[Hg] [facility] Diastolic blood pressure 2021-02-22 15:18:00 85 mm[Hg] [facility] Heart rate 2021-02-22 15:18:00 88 /min [facility] Body temperature 2021-02-22 15:18:00 36.22 Naomi [facility] Respiratory rate 2021-02-22 15:18:00 16 /min [facility] Body height 2021-02-22 15:18:00 165.1 cm [facility] Body weight 2021-02-22 15:18:00 111.449 kg [facility] BMI 2021-02-22 15:18:00 40.89 kg/m2 [facility] Oxygen saturation in Arterial blood by Pulse oximetry 2021-02-22 15:18:00 99 /min [facility] Systolic blood pressure 2020-06-29 06:00:00 121 mm[Hg] [facility] Diastolic blood pressure 2020-06-29 06:00:00 94 mm[Hg] [facility] Heart rate 2020-06-29 06:00:00 83 /min [facility] Respiratory rate 2020-06-29 06:00:00 20 /min [facility] Oxygen saturation in Arterial blood by Pulse oximetry 2020-06-29 06:00:00 97 /min [facility] Body temperature 2020-06-29 02:47:00 36.78 Naomi [facility] Body height 2020-06-29 02:47:00 165.1 cm [facility] Body weight 2020-06-29 02:47:00 104.327 kg [facility] BMI 2020-06-29 02:47:00 38.27 kg/m2 [facility] Procedures Procedure Date / Time Performed Performing Clinician Source XR CHEST 2 VW 2022-10-08 18:50:09 Requisition, Paper [facility] POCT MOLECULAR FLU 2022-09-02 19:45:00 Unknown, Attend ing [facility] ASSIGNMENT OF BENEFITS 2022-09-02 19:30:06 Docto r Unassigned, [place] [facility] TROPONIN I 2022-03-31 21:01:00 Lana Schwab [facility] URINALYSIS 2022-03-31 20:40:00 Lana Schwab [facility] D-DIMER 2022-03-31 19:32:00 Lana Schwab [facility] XR CHEST 1 2022-03-31 19:06:34 Lana Schwab [facility] MAGNESIUM 2022-03-31 18:51:00 [facility] TROPONIN [facility] 2022-03-31 18:51:00 [facility] COMP. METABOLIC PANEL ([id number]) 2022-03-31 18:51:00 Lana Schwab [facility] CBC WITH DIFF 2022-03-31 18:51:00 Lana Schwab [facility] N-TERMINAL PRO-BNP 2022-03-31 18:51:00 Lana Schwab [facility] CONSENT/REFUSAL FOR DIAGNOSIS AND TREATMENT 2022-03-31 18:30:49 Doctor Unassigned, [place] [facility] TROPONIN I 2022-03-09 21:09:00 Kailee Melendrez [facility] LIPID PANEL ([id number])(TOTAL CHOLESTEROL, TRIGLYCERIDES, HDL) 2022-03-09 19:48:00 Melendrez, [facility] GLYCOSYLATED HEMOGLOBIN (A1C) 2022-03-09 19:48:00 Singer [facility] XR CHEST 1 VW 2022-03-09 19:01:15 Singer [facility] LIPASE 2022-03-09 18:52:00 Kailee Melendrez [facility] MAGNESIUM 2022-03-09 18:52:00 Singer [facility] TROPONIN I 2022-03-09 18:52:00 Singer [facility] COMP. METABOLIC PANEL ([id number]) 2022-03-09 18:52:00 Singer [facility] CBC WITH DIFF 2022-03-09 18:52:00 Singer [facility] PROTHROMBIN TIME / INR 2022-03-09 18:52:00 Singer [facility] ACTIVATED PARTIAL THRMPLAS BULMARO 2022-03-09 18:52:00 Singer [facility] N-TERMINAL PRO-BNP 2022-03-09 18:52:00 Singer [facility] CONSENT/REFUSAL FOR DIAGNOSIS AND TREATMENT 2022-03-09 18:39:49 Doctor Unassigned, [place] [facility] CT CERVICAL SPINE WO CONTRAST 2021-08-29 22:12:00 Eunice Rowley [facility] CT HEAD WO CONTRAST 2021-08-29 22:12:00 Josh Rowley [facility] NOTICE OF PRIVACY PRACTICES 2021-08-29 21:02:46 Doctor Unassigned, [place] [facility] CONSENT/REFUSAL FOR DIAGNOSIS AND TREATMENT 2021-08-29 21:02:29 Doctor Unassigned, [place] [facility] POCT GRP A STREP (MOLECULAR) 2021-02-22 15:20:00 Martha Louise [facility] COVID-19 (MOLECULAR TESTING NUCLEIC ACID AMPLIFICATION) 2021-01-27 22:13:00 Martha Louise [facility] LAB ONLY COVID INTERPRETATION 2021-01-27 22:13:00 Martha Louise [facility] TROPONIN I 2020-06-29 04:27:00 Tran Tobin [facility] XR CHEST 1 VW 2020-06-29 03:41:31 Tran Tobin [facility] LIPASE 2020-06-29 02:55:00 Tran Tobin [facility] TROPONIN I 2020-06-29 02:55:00 Tran Tobin [facility] COMP. METABOLIC PANEL ([id number]) 2020-06-29 02:55:00 Tran Tobin [facility] CBC WITH DIFF 2020-06-29 02:55:00 Tran Tobin [facility] PROTHROMBIN TIME / INR 2020-06-29 02:55:00 Agustin Tobin [facility] ACTIVATED PARTIAL THRMPLAS BULMARO 2020-06-29 02:55:00 Tran Tobin [facility] NOTICE OF PRIVACY PRACTICES 2020-06-29 02:39:50 Doctor Unassigned, [place] [facility] CONSENT/REFUSAL FOR DIAGNOSIS AND TREATMENT 2020-06-29 02:39:30 Doctor Unassigned, [place] [facility] COVID-19 (PCR MOLECULAR TESTING) 2019-12-06 14:49:00 Mohit Rowan [facility] Encounters Start Date/Time End Date/Time Encounter Type Admission Type Attending [facility] Care Facility Care Department Encounter ID Source 2023-11-13 10:30:00 2023-11-13 10:30:00 Outpatient NICOLA FARIAS [id number] Reema aline 2023-10-29 00:00:00 2023-10-29 00:00:00 Outpatient NICOLA FARIAS [id number] Reema Metzger 2023-10-29 00:00:00 2023-10-29 00:00:00 [facility]patient [facility] [id number] [facility]:00 2023-10-20 00:00:00 Outpatient MD REEMA TRAN [id number] [facility] 2023-10-20 00:00:00 2023-10-20 00:00:00 Outpatient NICOLA FARIAS [id number] Reema Seybold 2023-10-19 00:00:00 2023-10-19 00:00:00 Outpatient NICOLA FARIAS [id number] Reema Seybold 2023-10-19 00:00:00 2023-10-19 00:00:00 Outpatient NICOLA FARIAS [id number] Reema Seybold 2023-10-16 12:30:00 2023-10-16 12:30:00 Outpatient IRAJ MILLS REEMA [id number] Reema Seybold 2023-10-13 07:55:00 2023-10-13 07:55:00 Outpatient LABPaulette LEAVITT REEMA [id number] Reema Seybold 2023-10-13 00:00:00 2023-10-13 00:00:00 Outpatient NICOLA FARIASSEY [id number] [facility] 2023-10-09 11:15:00 2023-10-09 11:15:00 Outpatient LAB90 REEMA REEMA [id number] Reema Seybold 2023-10-09 10:30:00 2023-10-09 10:30:00 Outpatient NICOLA FARIAS REEMA [id number] Reema Seybold 2023-10-09 10:30:00 2023-10-09 10:30:00 Outpatient NICOLA FARIAS REEMA [id number] Reema Seybold 2023-09-23 00:00:00 2023-09-23 00:00:00 Outpatient ROMAIN, YUE REEMA LEAVITT [id number] Reema Seybold 2023-09-16 13:40:00 2023-09-16 13:40:00 Outpatient YUE HOYOS REEMA LEAVITT [id number] Reema Seybold 2023-09-16 12:50:00 2023-09-16 12:50:00 Outpatient REEMA LEAVITT [id number] Reema Seybold 2023-09-16 00:00:00 2023-09-16 00:00:00 Outpatient YUE HOYOS [id number] Reema Metzger 2023-02-10 10:07:08 2023-02-10 10:07:08 Outpatient [facility] [id number] Jim Valentin 2023-02-05 14:27:55 2023-02-05 14:27:55 Outpatient [facility] [id number] Jim Valentin 2022-12-20 10:46:43 2022-12-20 10:46:43 Outpatient [facility] [id number] Jim Valentin 2022-10-08 13:41:35 2022-10-08 23:59:00 Outpatient R RADIOLOGY [facility] [id number] [facility] 2022-10-08 13:30:00 2022-10-08 23:59:00 Hospital Encounter Radiology [facility] [id number] 350.1.13.10 4.2.7.2.686 [id number] [facility] 2022-09-04 00:00:00 2022-09-04 00:00:00 Telephone Cecily Carrera [facility] 1.2.840.114 350.1.13.10 4.2.7.2.686 [id number] [facility] 2022-09-02 14:40:00 2022-09-02 15:17:11 Outpatient R CECILY CARRERA [facility] [id number] [facility] 2022-09-02 14:40:00 2022-09-02 15:17:11 Urgent Care Cecily Carrera Unknown, Attending [facility] [id number] 350.1.13.10 4.2.7.2.686 [id number] [facility] 2022-09-02 00:00:00 2022-09-02 00:00:00 Orders Only Doctor Unassigned, [place] [facility] 1.2.840.114 350.1.13.10 4.2.7.2.686 [id number] [facility] 2022-03-31 12:37:00 2022-03-31 16:32:00 Emergency X Lana SCHWAB [facility] [id number] [facility] 2022-03-31 12:37:00 2022-03-31 16:32:00 Emergency Lana Schwab [facility] 1.2.840.114 350.1.13.10 4.2.7.2.686 [id number] [facility] 2022-03-09 13:45:00 2022-03-09 17:27:00 Emergency X KAILEE MELENDREZ [facility] [id number] [facility] 2022-03-09 13:45:00 2022-03-09 17:27:00 Emergency Kailee Melendrez [facility] 1.2.840.114 350.1.13.10 4.2.7.2.686 [id number] [facility] 2021-08-29 16:09:00 2021-08-29 17:59:00 Emergency Eunice Rowley [facility] 1.2.840.114 350.1.13.10 4.2.7.2.686 [id number] [facility] 2021-08-29 16:09:00 2021-08-29 17:59:00 Emergency X EUNICE ROWLEY [facility] [id number] [facility] 2021-08-29 00:00:00 2021-08-29 00:00:00 Orders Only Doctor Unassigned, [place] [facility] 1.2.840.114 350.1.13.10 4.2.7.2.686 [id number] [facility] 2021-02-22 10:12:18 2021-02-22 10:32:18 Urgent Care Cora Ordoñez Unknown, Attending [facility] 1..840.114 350.1.13.10 4.2.7.2.686 [id number] [facility] 2021-02-22 10:20:00 2021-02-22 10:20:00 Outpatient R UNKNOWN, ATTENDING [facility] [id number] [facility] 2021-01-28 00:00:00 2021-01-28 00:00:00 Telephone Pcp, Patient Does Not Have A [facility] 1.840.114 350.1.13.10 4.2.7.2.686 [id number] [facility] 2021-01-27 17:40:00 2021-01-27 17:40:00 Outpatient R MARTHA LOUISE [facility] [id number] [facility] 2021-01-27 17:04:52 2021-01-27 17:19:00 Laboratory Only Only, Ang Db Test Dani, [facility] 1..840.114 350.1.13.10 4.2.7.2.686 [id number] [facility] 2020-06-28 20:43:00 2020-06-29 00:35:00 Emergency Tran Tobin S [facility] 1.840.114 350.1.13.10 4.2.7.2.686 [id number] [facility] 2020-06-28 20:40:00 2020-06-28 20:40:00 Emergency X [facility] [id number] [facility] 2019-12-06 09:48:08 2020-02-15 10:30:18 Laboratory Only Only, Web Test Unknown, Attending 1.840.114 350.1.13.10 4.2.7.2.686 [id number] [facility] Results Test Description Test Time Test Comments Results Result Co mments Source [id number] 20:27:03* Test Item Value Reference Range Interpretation Comments D-DIMER (test code = 2307517446) See_Comment [Automated message] The system which generated this result transmitted reference range: <0.41 ?g/mL (FEU). The reference range was not used to interpret this result as normal/abnormal. ELIAZAR (test code = ELIAZAR) This test [...] context, in forming a diagnosis. Lab Interpretation (test code = 80555-4) Normal [facility])2021-02-22 15:31:00* Test Item Value Reference Range Interpretation Comme nts POCT GP A STREP (test code = 62093-9) neg Negative - Negative ELIAZAR (test code = ELIAZAR) accurate developme nt and interpretation of all internal controls Lab Interpretation (test code = 08366-5) Normal [facility] COVID [id number] 15:24:21COVID DMT InterpretationInterpretation/Recommendations: Molecular NAAT Tests for Active Infection with the SARS-CoV-2 Virus: The current test result is positive for the SARS-CoV-2 virus that causes COVID-19 illness. In gckm-ky-najmcznh illness, the patient may be considered no longer infectious when it has been after 10 days since symptom onset, the patient has been afebrile for 24 hours without the use of fever-reducing medications, AND other symptoms of COVID-19 are improving. However, in patients who have been severely ill with COVID-19 or are severely immunocompromised, isolation up to 20days after symptom onset is recommended. Asymptomatic patients are considered infectious for the first 10 days subsequent to the initial positive test result. From the onset of symptoms, if any, thisresult is likely to remain positive up to [...] to SARS-CoV-2 may provide some degree of im munity, at this time the strength and duration of the antibody response is unknown. Interpretation Result Comments:These interpretation comments are based upon all COVID-19 testing the patient has had at [facility], including molecular NAAT testing (more commonly known as PCR testing and Rapid ID Now testing) and antibody testing.It does not take into account any testing that a patient has had outside of the [facility] medical record. [facility] LABORATORY SERVICESCOVID OstbdviTREO-AxD-9 NAAT (no units) ? ? Date ? Value? 01/27/2021 ? Positive (A) ? [facility]COVID-[facility] (MOLECULAR TESTING NUCLEIC ACID AMPLIFICATION)2021-01-28 21:19:22* Test Item Value Reference Range Interpretation Comme nts SARS-CoV-2 NAAT (test code = 58983-7) Positive Not Detected A ELIAZAR (test code = ELIAZAR) [employer] Aptima SARS-CoV-2 Assay is a nucleic acid amplification test intended for the qualitative detection of RNA from SARS-CoV-2 from nasopharyngeal (STABLE HAND) specimens. ?It is used under Emergency Use [...] repeat testing if clinically indicated. Lab Interpretation (test code = 57314-2) Abnormal [facility]woodTROPONIN [id number] 05:53:00* Test Item Value Reference Range Interpretation Comme nts TROPONIN I (test code = 2883516966) <0.012 See_Comment [Automated message] The system which generated this result transmitted reference range: <=0.034 ng/mL. The reference range was not used to interpret this result as normal/abnormal. ELIAZAR (test code = ELIAZAR) Equal or Less than 0.034 ng/ml---Normal ?Note: Cardiac troponin begins to [...] patient's use of biotin. ? Lab Interpretation (test code = 50524-6) Normal [facility]woodXR CHEST 1 [id number] 04:16:06Impression: No radiographic evidence for acute cardiopulmonary disease. RL: 460 AFC: [id number] Ordering physician: TRAN TOBIN Indication: Chest pain Comparison: None Findings: Single AP view of the chest. The cardiopericardialsilhouette iswithin normal limits. The lungs are clear bilaterally. The visualized bonythorax is intact. [facility], Radiant Results Inft User - 06/28/2020 10:17 PM CSTOrdering physician: TRAN TOBINIndication: Chest painComparison: NoneFindings: Single AP view of the chest. The cardiopericardial silhouette iswithin normal limits. The lungs are clear bilaterally. The visualized bonythorax is intact. IMPRESSIONImpression:No radiographic evidence for acute cardiopulmonary disease.RL: 460AFC: [id number] signed by Jenelle Del Rio MD, PhD at 06/28/2020 10:16 [facility] [id number] 04:03:00* Test Item Value Reference Range Interpretation Comme nts WBC (test code = 6690-2) See_Comment [Automated messa ge] The system which generated this result transmitted reference range: 4.20 - 10.70 10*3/?L. The reference range was not used to interpret this result as normal/abnormal. RBC (test code = 789-8) See_Comment [Automated messa ge] The system which generated this result transmitted reference range: 4.26 - 5.52 10*6/?L. The reference range was not used to interpret this result as normal/abnormal. HGB (test code = 718-7) 15.0 g/dL 12.2-16.4 HCT (test code = 4544-3) 43.9 % 38.4-49.3 MCV (test code = 787-2) 90.3 fL 81.7-95.6 MCH (test code = 785-6) 30.9 pg 26.1-32.7 MCHC (test code = 786-4) 34.2 g/dL 31.2-35 RDW-SD (test code = 48805-7) 40.3 fL 38.5-51.6 RDW-CV (test code = 788-0) 12.2 % 12.1-15.4 PLT (test code = 777-3) See_Comment [Automated [employer] Systemsa ge] The system which generated this result transmitted reference range: 150 - 328 10*3/?L. The reference range was not used to interpret this result as normal/abnormal. MPV (test code = 61923-8) 12.6 fL 9.8-13 IPF % (test code = 3185387449) 4.8 % 1.2-10.7 Platelet count measured by fluorescence method. NRBC/100 WBC (test code = 8654676313) See_Comment [Automated [employer] ssage] The system which generated this result transmitted reference range: 0.0 - 10.0 /100 WBCs. The reference range was not used to interpret this result as normal/abnormal. NRBC x10^3 (test code = 9228975270) <0.01 See_Comment [Automated [employer] Systemsa ge] The system which generated this result transmitted reference range: 10*3/?L. The reference range was not used to interpret this result as normal/abnormal. GRAN MAT (NEUT) % (test code = 770-8) 47.4 % IMM GRAN % (test code = 1856012483) 0.50 % LYMPH % (test code = 736-9) 40.6 % MONO % (test code = 5905-5) 8.5 % EOS % (test code = 713-8) 2.2 % BASO % (test code = 706-2) 0.8 % GRAN MAT x10^3(ANC) (test code = 6525454334) 4.56 10*3/uL 1.99-6.95 IMM GRAN x10^3 (test code = 5691341060) 0.05 10*3/uL 0-0.06 LYMPH x10^3 (test code = 731-0) 3.91 10*3/uL 1.09-3.23 H MONO x10^3 (test code = 742-7) 0.82 10*3/uL 0.36-1.02 EOS x10^3 (test code = 711-2) 0.21 10*3/uL 0.06-0.53 BASO x10^3 (test code = 704-7) 0.08 10*3/uL 0.01-0.09 REACT LYMPHS (test code = 9087266465) Rare Lab Interpretation (test code = 32078-8) Abnormal [facility]woodTROPONIN [id number] 03:49:00* Test Item Value Reference Range Interpretation Comme nts TROPONIN I (test code = 2648575442) <0.012 See_Comment [Automated message] The system which generated this result transmitted reference range: <=0.034 ng/mL. The reference range was not used to interpret this result as normal/abnormal. ELIAZAR (test code = ELIAZAR) Equal or Less than 0.034 ng/ml---Normal ?Note: Cardiac troponin begins to [...] patient's use of biotin. ? Lab Interpretation (test code = 58337-6) Normal [facility] KingwoodaPTT2021-02-05 03:44:00* Test Item Value Reference Range Interpretation Comme nts APTT Patient (test code = 3173-2) See_Comment [Automated message] The system which generated this result transmitted reference range: 23 - 38 Seconds. The reference range was not used to interpret this result as normal/abnormal. ELIAZAR (test code = ELIAZAR) The [facility] patient population mean normal value for aPTT is 30 seconds. Lab Interpretation (test code = 02484-4) Normal [facility] KingwoodPROTHROMBIN TIME / [id number] 03:42:00* Test Item Value Reference Range Interpretation Comme [facility] PROTIME PATIENT (test code = 5964-2) See_Comment [Automated [employer] Systemsa ge] The system which generated this result transmitted reference range: 12.0 - 14.7 Seconds. The reference range was not used to interpret this result as normal/abnormal. INR (test code = 6301-6) Normal INR <1.1; Warfarin Therapeutic range 2.0 to 3.0 or 2.5 to 3.5, depending upon the indications. Lab Interpretation (test code = 42210-0) Normal [facility] KingwoodCOM. METABOLIC PANEL (56591)2020-06-29 03:38:00* Test Item Value Reference Range Interpretation Comme [facility] NA (test code = 9161376239) 140 mmol/L 135-145 K (test code = 1962488152) 3.7 mmol/L 3.5-5 CL (test code = 5185457964) 105 mmol/L 98-108 CO2 TOTAL (test code = 9618812605) 27 mmol/L 23-31 AGAP (test code = 8270668103) 2-16 BUN (test code = 3927116438) 10 mg/dL 7-23 GLUCOSE (test code = 8495196877) 140 mg/dL 70-110 H CREATININE (test code = 4440002782) 0.70 mg/dL 0.6-1.25 TOTAL BILI (test code = 3920358396) 0.5 mg/dL 0.1-1.1 CALCIUM (test code = 7114145781) 9.5 mg/dL 8.6-10.6 T PROTEIN (test code = 4756441012) 6.7 g/dL 6.3-8.2 ALBUMIN (test code = 3577668216) 4.1 g/dL 3.5-5 ALK PHOS (test code = 6745620429) 40 U/L 34-122 ALTv (test code = 1742-6) 60 U/L 5-50 H AST(SGOT) (test code = 2094380165) 32 U/L 13-40 eGFR Calculation (Non-) (test code = 3310488991) mL/min/1.73m2 eGFR Calculation () (test code = 6598313567) mL/min/1.73m2 ELIAZAR (test code = ELIAZAR) Association of [...] or abnormalities in imaging tests). Lab Interpretation (test code = 71637-9) Abnormal [facility] KingwoodLIPASE, [id number] 03:38:00* Test Item Value Reference Range Interpretation Comme nts LIPASE (test code = 2180157383) 100 U/L 0-220 Lab Interpretation (test cod e = 01625-8) Normal [facility]woodCOVID-19 (PCR MOLECULAR TESTING)2019-12-09 00:53:00* Test Item Value Reference Range Interpretation Comme nts SARS-CoV-2 PCR (test code = 03540-6) Not Detected Not Detected ELIAZAR (test code = ELIAZAR) Disclaimer: This t est was developed and its performance characteristics determined by [facility]. It has not been cleared or approved [...] specimen for repeat patient testing. Lab Interpretation (test code = 16352-9) Normal [facility] Notes Date/Time Note Provider Source 2023-10-09 10:13:37 2474-34-12U09:13:37F ormatting of this note is different from the original.Chief ComplaintPatient presents withNew PatientEstablish CareFasting for lab. Is mot currently on medicationsPaElsi Hicksectronically signed by Kiera Pérez LVN at 10/09/2023 10:14 AM [id number] RfweDP4399-19-06V52:14:19Nurse NoteTXT1.2.840.143475.1.13.131.2.7.2. 232087|[id number] for patient vpev11451-9Aspad NoteLNNARRATIVEFormatted C-CDA narrative [facility] [facility].[id number]:14:191.2.840.352742.1.7 2.3.15|1.2.840.047518.1.13.131.2.7.2. [id number] [facility] 2023-09-16 14:05:58 3138-14-08F12:05:58F ormatting of this note is different from the original.Chief ComplaintPatient presents withKnee PainRight knee pain after fall x 2-3 weeks ago 38543-4Ejcnm TmwpVI7349-02-48J59:10:52Nurse NoteTXT1.2.840.113382.1.13.131.2.7.2. 877602|[id number] for patient jmna35730-9Gfwax NoteLNNARRATIVEFormatted C-CDA narrative [facility] [place] [facility].[id number] 5263-30-61K79:10:521.2.840.468440.1.7 2.3.15|1.2.840.998538.1.13.131.2.7.2. [id number] [facility]
[2023-11-03] MEDS ORDERED: DIPHENHYDRAMINE 50 MG/ML VIAL ONE (15:05)
[2023-11-03] MEDS ORDERED: METOCLOPRAMIDE 10 MG/2mL INJ ONE (15:05)
[2023-11-03] MEDS ORDERED: KETOROLAC 30 MG/ML INJ ONE (15:05)
[2023-11-03] MEDS ORDERED: NA CHLORIDE 0.9% 1,000 ML ONE (15:06)
[2023-11-03 15:17] LABS: Absolute Basophils 0.1 K/uL (0-0.5); Absolute Lymphocytes (CBC) 3.1 K/uL (0.7-4.9); Absolute Neutrophil 7.9 K/uL (1.8-8.0); Basophils % 0.5 % (0-1.3); Eosinophils % 0.4 % (0-4.4); Hematocrit 42.2 % (39.6-49.0); Hemoglobin 14.3 g/dL (13.6-17.9); Lymphocytes % 25.8 % (15.3-44.8); MCH 30.3 pg (27.0-35.0); MCHC 33.8 g/dL (32.0-36.0); MCV 89.8 fL (80-100); MPV 9.3 fL (7.6-11.3); Neutrophils % 65.3 % (41.7-73.7); Nucleated Red Blood Cells % 0.1 % (0-0); Platelets 272 thou/uL (152-406); Red Cell Distribution Width 13.8 % (12.1-15.2)
--- NOTE | 2023-11-03 17:22 | RAD REPORT ---
EXAM DESCRIPTION: CT - Head Brain Wo Cont - 11/03/2023 3:14 pm CLINICAL HISTORY: headache, blurry vision COMPARISON: Head Brain Wo Cont dated 04/20/2023; HEAD BRAIN W O CONTRAST dated 11/04/2008 TECHNIQUE: Noncontrast head CT images were obtained without IV contrast. Multiplanar reformats were generated and reviewed. All CT scans are performed using dose optimization technique as appropriate and may include automated exposure control or mA/KV adjustment according to patient size. FINDINGS: No intracranial hemorrhage, mass, or edema. Midline structures are unremarkable. Normal ventricular caliber for age. Nagel-white matter differentiation is preserved, without evidence of acute infarct. No abnormal extra- axial fluid collections. Mastoid air cells and visualized portions of the paranasal sinuses are clear. No acute bony findings. IMPRESSION: No evidence of an acute intracranial process.
--- NOTE | 2023-11-03 17:54 | ER ---
Nurse's Notes [facility] Name: Simon Sauceda Jr Age: 43 yrs Sex: Male : 1980 Arrival Date: 11/03/2023 Time: 14:23 Bed 20 Private MD: Diagnosis: Headache;Dizziness Presentation: 11/02 14:38 Chief complaint: Patient states: he started having a headache that he rates a 10/10 on ap3 the pain scale this morning at approx 0930 this morning. with this headache patient reports bilateral facial numbness and "squiggles in vision". Coronavirus screen: At this time, the client does not indicate any symptoms associated with coronavirus-19. Ebola Screen: No symptoms or risks identified at this time. Initial Sepsis Screen: Does the patient meet any 2 criteria? HR > 90 bpm. Does the patient have a suspected source of infection? No. Patient's initial sepsis screen is negative. Risk Assessment: Do you want to hurt yourself or someone else? Patient reports no desire to harm self or others. Onset of symptoms was November 03, 2023 at 09:30. 14:38 Method Of Arrival: Ambulatory ap3 14:38 Acuity: ESTER 3 ap3 Triage Assessment: 14:40 Headache History: The patient has had previous headaches and this one is different than ap3 previous episodes. General: Appears in no apparent distress. Behavior is calm, cooperative, appropriate for age. Pain: Complains of pain in head Pain does not radiate. Pain currently is 10 out of 10 on a pain scale. Pain began 0930 today Also complains of. Neuro: Reports blurred vision headache. Cardiovascular: Patient's skin is warm and dry. Respiratory: Airway is patent Respiratory effort is even, unlabored, Respiratory pattern is regular, symmetrical. Historical: - Allergies: 14:40 NKA; ap3 - PMHx: 14:40 Anemia; Anxiety; Asthma; Bipolar disorder; chronic back pain; Enlarged Heart; fatty ap3 liver; headache; Hypertensive disorder; Kidney stones; scoliosis; - PSHx: 14:40 Cholecystectomy; kidney stone removal; ap3 - Immunization history:: Client reports receiving the 2nd dose of the Covid vaccine. - Infectious Disease History:: Denies. - Social history:: Smoking status: Patient reports the use of cigarette tobacco products, smokes one-half pack cigarettes per day. Screenin:41 Abuse screen: Denies threats or abuse. Nutritional screening: No deficits noted. ap3 Tuberculosis screening: No symptoms or risk factors identified. 14:46 [facility] ED Fall Risk Assessment (Adult) History of falling in the last 3 months, me1 including since admission No falls in past 3 months (0 pts) Confusion or Disorientation No (0 pts) Intoxicated or Sedated No (0 pts) Impaired Gait No (0 pts) Mobility Assist Device Used No (0 pt) Altered Elimination No (0 pt) Score/Fall Risk Level 0 - 2 = Low Risk Maintained a safe environment, Provided non-skid footwear, Hourly rounding (assess needs \\T\\ fall precautionary measures) done. Assessment: 14:46 General: Appears uncomfortable, well developed, well nourished, Behavior is calm, me1 cooperative, appropriate for age, Reports he started having a headache that he rates a 10/10 on the pain scale this morning at approx 0930 this morning. with this headache patient reports bilateral facial numbness and "squiggles in vision". Pain: Complains of pain in head Pain does not radiate. Pain currently is 10 out of 10 on a pain scale. Quality of pain is described as aching, Pain began gradually, 09:30 am. Neuro: Level of Consciousness is awake, alert, obeys commands, Oriented to person, place, time, situation, Appropriate for age Reports headache numbness in right cheek and left cheek "squiggles of light in vision". Cardiovascular: Capillary refill < 3 seconds Patient's skin is warm and dry. Respiratory: Airway is patent Trachea midline Respiratory effort is even, unlabored, Respiratory pattern is regular, symmetrical. GI: No signs and/or symptoms were reported involving the gastrointestinal system. : No signs and/or symptoms were reported regarding the genitourinary system. EENT: No signs and/or symptoms were reported regarding the EENT system. Derm: Skin is intact, is healthy with good turgor, Skin is pink, warm \\T\\ dry. Musculoskeletal: No signs and/or symptoms reported regarding the musculoskeletal system. Vital Signs: 14:38 BP 94 / 67; Pulse 110; Resp 18; Temp 98.2(O); Pulse Ox 98% on R/A; Weight 117.93 kg; ap3 Height 5 ft. 5 in. ; Pain 10/10; 15:30 BP 110 / 78; Pulse 95; Resp 16; Pulse Ox 96% on R/A; me1 16:00 BP 122 / 63; Pulse 85; Resp 16; Pulse Ox 96% on R/A; me1 17:00 BP 111 / 58; Pulse 93; Resp 16; Pulse Ox 100% on R/A; me1 17:40 BP 111 / 72; Pulse 95; Resp 16; Pulse Ox 100% on R/A; me1 14:38 Body Mass Index 43.27 (117.93 kg, 165.1 cm) ap3 14:38 Pain Scale: Adult ap3 ED Course: 14:26 Patient arrived in ED. im 14:32 Roque Lopez DO is Attending Physician. ms3 14:33 Maday Harrington, RN is Primary Nurse. me1 14:40 Triage completed. ap3 14:41 Arm band placed on right wrist. ap3 14:41 Patient has correct armband on for positive identification. Bed in low position. Call ap3 light in reach. Side rails up X2. Adult w/ patient. Client placed on continuous cardiac and pulse oximetry monitoring. NIBP monitoring applied. personnel monitor on. Pulse ox on. NIBP on. Sitter at bedside. 14:46 Provided Education on: POC. Verbalized understanding. . me1 14:46 No provider procedures requiring assistance completed. me1 15:02 Initial lab(s) drawn, by de, sent to lab. Inserted saline lock: 22 gauge in right me1 antecubital area, using aseptic technique. 15:15 CT Head Brain wo Cont In Process Unspecified. EDMS 17:53 Gonzalo Juan MD is Referral Physician. ms3 18:02 IV discontinued, intact, bleeding controlled, No redness/swelling at site. Pressure me1 dressing applied. Administered Medications: 15:25 Drug: metoCLOPramide IVP 10 mg IVP once; over 1 to 2 minutes Route: IVP; Site: right me1 antecubital; 16:17 Follow up: Response: No adverse reaction; Pain is decreased me1 15:25 Drug: Ketorolac IVP 10 mg 10 mg IVP once Route: IVP; Site: right antecubital; me1 16:17 Follow up: Response: No adverse reaction; Pain is decreased me1 15:25 Drug: NS 0.9% IV 1000 ml IV at 1 bolus Per protocol; 1000 mL bolus Route: IV; Rate: 1 me1 bolus; Site: right antecubital; 18:03 Follow up: Response: No adverse reaction; IV Status: Completed infusion; IV Intake: me1 1000ml 15:25 Drug: diphenhydrAMINE IVP 25 mg IVP once Route: IVP; Site: right antecubital; me1 16:17 Follow up: Response: No adverse reaction; Pain is decreased me1 Medication: 14:46 VIS not applicable for this client. me1 Intake: 18:03 IV: 1000ml; Total: 1000ml. me1 Outcome: 17:53 Discharge ordered by MD. ms3 18:02 Discharged to home ambulatory, with family, me1 18:02 Condition: stable 18:02 Discharge instructions given to patient, family, Instructed on discharge instructions, follow up and referral plans. medication usage, Demonstrated understanding of instructions, follow-up care, medications, Prescriptions given X 1, 18:03 Patient left the ED. me1 Signatures: Dispatcher [employer] EDPinky Alvarez RN RN ap3 Roque Lopez DO DO ms3 Katherine Coello Michelle, RN RN me1 Corrections: (The following items were deleted from the chart) 46 14:38 Chief complaint: Patient states: he started having a headache that he rates a me1 10/10 on the pain scale this morning at approx 0930 this morning. with this headache patient reports bilateral facial numbness and "squiggles in vision". ap3
--- NOTE | 2023-11-03 17:54 | EDPHYS ---
Physician Documentation [facility] Name: Simon Sauceda Jr Age: 43 yrs Sex: Male : 1980 Arrival Date: 11/03/2023 Time: 14:23 Bed 20 Private MD: ED Physician Roque Lopez HPI: 11/02 15:02 This 43 yrs old Male presents to ER via Ambulatory with complaints of Headache, ms3 Dizziness, Blurred Vision, Numbness Of Face. 15:02 43-year-old male with past medical history of anemia, anxiety, asthma, bipolar, chronic ms3 back pain, enlarged heart, fatty liver, headaches, kidney stones presents to the emergency department for headache, dizziness, lines through his vision, and bilateral cheek numbness. Patient states his headache is a 10/10. Patient denies any alleviating or inciting factors. Patient denies nausea, vomiting, weakness. Historical: - Allergies: 14:40 NKA; ap3 - PMHx: 14:40 Anemia; Anxiety; Asthma; Bipolar disorder; chronic back pain; Enlarged Heart; fatty ap3 liver; headache; Hypertensive disorder; Kidney stones; scoliosis; - PSHx: 14:40 Cholecystectomy; kidney stone removal; ap3 - Immunization history:: Client reports receiving the 2nd dose of the Covid vaccine. - Infectious Disease History:: Denies. - Social history:: Smoking status: Patient reports the use of cigarette tobacco products, smokes one-half pack cigarettes per day. ROS: 15:02 Constitutional: Negative for fever, and chills. Neck: Negative for injury, pain, and ms3 swelling, Cardiovascular: Negative for chest pain, and palpitations. Respiratory: Negative for shortness of breath, cough, wheezing, and pleuritic chest pain, Abdomen/GI: Negative for abdominal pain, nausea, vomiting, diarrhea, and constipation, 15:02 Neuro: Positive for dizziness, headache, Exam: 15:02 Constitutional: This is a well developed, well nourished patient who is awake, alert, ms3 and in no acute distress. Head/Face: Normocephalic, atraumatic. Chest/axilla: Normal chest wall appearance and motion. Nontender with no deformity. Cardiovascular: Regular rate and rhythm with a normal S1 and S2. No gallops, murmurs, or rubs. Normal PMI, no JVD. No pulse deficits. Respiratory: Lungs have equal breath sounds bilaterally, clear to auscultation and percussion. No rales, rhonchi or wheezes noted. No increased work of breathing, no retractions or nasal flaring. Abdomen/GI: Soft, non-tender, with normal bowel sounds. No distension or tympany. No guarding or rebound. No evidence of tenderness throughout. 15:02 Neuro: Orientation: is normal, to person, place, time \T\ situation. Mentation: is normal, Memory: is normal, Cranial nerves: CN I not tested, CN II- XII are normal as tested, Cerebellar function: is grossly normal, Motor: is normal, Sensation: no obvious gross deficits, Vital Signs: 14:38 BP 94 / 67; Pulse 110; Resp 18; Temp 98.2(O); Pulse Ox 98% on R/A; Weight 117.93 kg; ap3 Height 5 ft. 5 in. ; Pain 10/10; 15:30 BP 110 / 78; Pulse 95; Resp 16; Pulse Ox 96% on R/A; me1 16:00 BP 122 / 63; Pulse 85; Resp 16; Pulse Ox 96% on R/A; me1 17:00 BP 111 / 58; Pulse 93; Resp 16; Pulse Ox 100% on R/A; me1 17:40 BP 111 / 72; Pulse 95; Resp 16; Pulse Ox 100% on R/A; me1 14:38 Body Mass Index 43.27 (117.93 kg, 165.1 cm) ap3 14:38 Pain Scale: Adult ap3 MDM: 14:52 Patient medically screened. ms3 15:02 Differential diagnosis: intracerebral hemorrhage, migraine, tension headache. ms3 17:53 Data reviewed: vital signs, nurses notes, lab test result(s), radiologic studies, and ms3 as a result, I will discharge patient. I considered the following discharge prescriptions or medication management in the emergency department Medications were administered in the Emergency Department. See MAR. Counseling: I had a detailed discussion with the patient and/or guardian regarding the historical points, exam findings, and any diagnostic results supporting the discharge/admit diagnosis, lab results, radiology results, the need for outpatient follow up, to return to the emergency department if symptoms worsen or persist or if there are any questions or concerns that arise at home. Special discussion: I discussed with the patient/guardian in detail that at this point there is no indication for admission to the hospital. It is understood, however, that if the symptoms persist or worsen the patient needs to return immediately for re-evaluation. ED course: Discussed labs and CT with patient. Patient to follow up with Dr Juan in 2-3 days. All questions answered. Return precautions discussed to include weakness, numbness, worsening symptoms, or any other concerns. On re-evaluation patient is a/o x4, nad, non-toxic appearing, speaking full sentences, ambulatory in the ED.. 11/02 14:52 Order name: CBC with Diff; Complete Time: 15:41 ms3 11/02 14:52 Order name: BMP; Complete Time: 15:41 ms3 11/02 14:52 Order name: CT Head Brain wo Cont; Complete Time: 17:40 ms3 Administered Medications: 15:25 Drug: metoCLOPramide IVP 10 mg IVP once; over 1 to 2 minutes Route: IVP; Site: right me1 antecubital; 16:17 Follow up: Response: No adverse reaction; Pain is decreased me1 15:25 Drug: Ketorolac IVP 10 mg 10 mg IVP once Route: IVP; Site: right antecubital; me1 16:17 Follow up: Response: No adverse reaction; Pain is decreased me1 15:25 Drug: NS 0.9% IV 1000 ml IV at 1 bolus Per protocol; 1000 mL bolus Route: IV; Rate: 1 me1 bolus; Site: right antecubital; 18:03 Follow up: Response: No adverse reaction; IV Status: Completed infusion; IV Intake: me1 1000ml 15:25 Drug: diphenhydrAMINE IVP 25 mg IVP once Route: IVP; Site: right antecubital; me1 16:17 Follow up: Response: No adverse reaction; Pain is decreased me1 Disposition Summary: 11/03/23 17:53 Discharge Ordered Notes: Location: Home ms3 Condition: Stable ms3 Diagnosis - Headache ms3 - Dizziness ms3 Followup: ms3 - With: Gonzalo Juan MD - When: 2 - 3 days - Reason: Recheck today's complaints Discharge Instructions: - Discharge Summary Sheet ms3 - General Headache Without Cause ms3 Forms: - Medication Reconciliation Form ms3 - Antibiotic Education ms3 - Prescription Opioid Use ms3 - Patient Portal Instructions ms3 - Leadership Thank You Letter ms3 - Work release form me1 Prescriptions: - Fioricet 50-300-40 mg Oral capsule - take 1 capsule ORAL route every 6 hours; 15 capsule; Refills: 0, Product ms3 Selection Permitted Signatures: Dispatcher [employer] Pinky Jenkins RN RN ap3 Roque Lopez DO DO ms3 Maday Harrington RN RN me1
[2023-11-03 18:19] VITALS: TEMP 98.2
[2023-11-03 18:39] VITALS: BP 111/72; O2SAT 100
== END 2023-11-03 18:03 | disposition home or self-care (01) ==
LOC: ER 14:23
DX: R51.9 Headache, unspecified (principal); R42 Dizziness and giddiness
CPT/HCPCS: 96361; 85025; 80048; 36415; 70450; 96375; 96374; 99285; J2765; J1200; J7030

== ENCOUNTER 2024-08-28 19:14 | Emergency (ER) | payer OTHER ==
--- OUTSIDE RECORDS SUMMARY | 2024-08-28 19:18 | XMS REPORT | Continuity of Care Document ---
Author Name Unknown Address [address] [place] [address] [facility] Address [address] [place] [address] Care Team Providers Care [employer] Name Role Phone Pcp, Patient Does Not Have A Primary Care Physic russ [facility] Attending Clinician Un available Unknown, Attending Attending Clinician Unavailab Prakash Rodrigues Attending Clinician [phone] PRAKASH RICHARD Attending Clinician Unavailable NICOLA FARIAS Attending Clinician Unavailab VENECIA Horowitz Attending Clinician Unavailable PRAVEEN VERAS Attending Clinician Unavailable LAB90 Attending Clinician Unavailable JANY PERERA Attending Clinician Unavailable SERGEY MELENDREZ Attending Clinician Unavailable SERGEY MELENDREZ Attending Clinician Unavailable Sergey Melendrez DO Attending Clinician [phone] KAREN OLGUIN Attending Clinician Unavailable JOSE ALBERTO GUTIERREZ Attending Clinician UnaSARAI Aranda Attending Clinician Unavailteofilo RHODES MD Attending Clinician Unavailab IRAJ Farah Attending Clinician UnavailYUE Whatley Attending Clinician Unavaila ble RADIOLOGY Attending Clinician Unavailable Radiology Attending Clinician Unavailable Essie Carrera PA-C Attending Clinician [phone] ESSIE CARRERA Attending Clinician Unavailable Unknown, Attending Attending Clinician Unavailab le Doctor Unassigned, Diablock Attending Clinician U navailable Lana SCHWAB Attending Clinician Unavailable Pardeep Lana FERMIN Attending Clinician [phone] Eunice Silva Attending Clinician EUNICE ROWLEY Attending Clinician Unavaila ble Smita SENIOR SOFTWARE QA ENGINEER, Cora Attending Clinician [phone] UNKNOWN, ATTENDING Attending Clinician Unavailab maegan Pcp, Patient Does Not Have A Attending Clinician PNIKY LOUISE Attending Clinician Unavailable Only, Ang Db Test Attending Clinician UnavailPinky Zeng MD Attending Clinician [phone] Tran Tobin MD Attending Clinician [phone] Only, Web Test Attending Clinician Unavailable SERGEY MELENDREZ Admitting Clinician Unavailable JIM PINEDA Admitting Clinician Unavailable Lana SCHWAB Admitting Clinician Unavailable SERGEY MELENDREZ Admitting Clinician Unavailable EUNICE ROWLEY Admitting Clinician Unavaila pam Payers Payer Name Policy Type Policy Number Effective Date Expirati on Date Source [facility] 9 [id number] 2023 00:00:00 [facility] W/ REEMA LIANG [id number] 2023 00:00:00 2024 00:00:00 Problems Condition Name Condition Details Condition Category Status Onset Date Resolution Date Last Treatment Date Treating Clinician Comments Source Gross hematuria Gross hematuria Disease Active 2023-05 00:00: 00 Reema Metzger - Externa l Sigmoid diverticul osis Sigmoid diverticul osis Disease Active 2023-05 00:00: 00 Reema Metzger - Externa l Hepatomega ly Hepatomega ly Disease Active 2023-05 00:00: 00 Reema Metzger - Externa lolita Hepatic steatosis Hepatic steatosis Disease Active 2023-05 00:00: 00 Reema Metzger - Externa l Renal cyst, right Renal cyst, right Disease Active 2023-05 00:00: 00 Reema Seybold - Externa l Type 2 diabetes mellitus with hyperglyce tayla, without long-term current use of insulin (multi HCC) Type 2 diabetes mellitus with hyperglyce tayla, without long-term current use of insulin (multi HCC) Disease Active 2023-05 008 00:00: 00 Reema Metzger - Externa l Primary hypertensi on Primary hypertensi on Disease Active 10-08 00:00: 00 Reema Metzger - Externa l Hyperlipid emia Hyperlipid emia Disease Active 10-08 00:00: 00 Reema Metzger - Externa l Visual disturbanc e Visual disturbanc e Disease Active 10-08 00:00: 00 Reema Metzger - Externa l Family history of thyroid disease Family history of thyroid disease Disease Active 10-08 00:00: 00 Reema Metzger - Externa l Prediabete s Prediabete s Disease Active 10-08 00:00: 00 Reema Rosario Externa l Obesity (BMI 30-39.9) Obesity (BMI 30-39.9) Disease Recurre wye 0 20 00:00: 00 [facility] Allergies, Adverse Reactions, Alerts Allergy Name Allergy Type Status Severity Reaction(s) Onset Date Inactive Date Treating Clinician Comments Source NO KNOWN ALLERGIE S Drug Class Active [facility] Social History Social Habit Start Date Stop Date Quantity Comments Source History of tobacco use Cigarette Smoker Reema Rosario [facility] Cigarettes smoked current (pack per day) - Reported 2023-10-09 00:00:00 2023-10-09 00:00:00 Reema Metzger - Mikala Cigarette pack-years 2023-10-09 00:00:00 2023-10-09 00:00:00 Reema Metzger - External Sex 2023-07-01 21:31:47 2023-07-01 21:31:47 Male (finding) Reema Metzger - External Exposure to SARS-CoV-2 (event) 2022-09-28 00:00:00 2022-10-08 13:40:[address] [facility] History of Social function 2022-09-02 00:00:00 2022-09-02 00:00:[address] [facility] Tobacco use and exposure 2021-02-22 00:00:00 2021-02-22 00:00:00 Smokeless tobacco non-user [facility] Sex assigned at 1980 00:00:00 1980 00:00:00 Reema Bach Smoking Status Start Date Stop Date Source Tobacco smoking consumption unknown Reema Rosario Ext erngabriel Smokes tobacco daily 2023-10-09 00:00:00 Reema Bach Never smoked tobacco [facility] Medications Ordered Medication Name Filled Medication Name Start Date Stop Date Current Medication? Ordering Clinician Indication Dosage Frequency Signature (SIG) Comments Components Source Ciprofloxac in HCl (Cipro) 500 MG oral Tablet 2023-05 00:00: 00 Yes 500mg Q.5D Take 1 tablet (500 mg total) by mouth 2 times daily. Reema Rosario Externa l ketorolac (TORADOL) injection 15 mg 2023-05 18:45: 00 05-03 18:33 :00 No 15mg 15 mg, Slow IV Push, ONCE, 1 dose, On Thu05/03/24 at 1245, GERA [facility] iopamidol (ISOVUE 370-500 mL) injection 85 mL 2023-05 17:00: 00 05-03 17:00 :00 No [id number] 85mL 85 mL, Intravenou s, ONCE, 1 dose, On Thu05/03/24 at 1100, Routine [facility] ketorolac 10 mg tablet 2023-05 00:00: 00 Yes [id number] 10mg Take 1 tablet by mouth every 6 (six) hours as needed for Pain (scale 7-10). [facility] tamsulosin 0.4 mg 24 hr capsule 2023-05 00:00: 00 Yes [id number] .4mg Take 1 capsule by mouth at bedtime. [facility] Ondansetron (ZOFRAN) 4 MG oral TABLET DISPERSIBLE 2023-05 00:00: 00 Yes 4mg Q.[id number] 3D Take 1 tablet (4 mg total) by mouth every 8 hours as needed. Reema mchugh Losartan Potassium (COZAAR) 100 MG oral Tablet 2023-05 2- 00:00: 00 Yes [id number] 100mg QD Take 1 tablet (100 mg total) by mouth daily. Reema mchugh Rosuvastati n Calcium 5 MG oral Tablet 2023-05 0-23 00:00: 00 Yes [id number] 5mg QD Take 1 tablet (5 mg total) by mouth nightly. Reema mchugh Trulicity 0.75 MG/0.5ML subcutaneou s Solution Pen-injecto r 2023-05 0-08 00:00: 00 Yes [id number] 9109 .75mg Q1W Inject 0.75 mg into the skin once a week. Reema mchugh Metformin HCl 500 MG oral Tablet 01-31 00:00: 00 Yes [id number] 9109 500mg QD Take 1 tablet (500 mg total) by mouth every morning and evening take with meals. Reema mchugh Losartan Potassium (COZAAR) 100 MG oral Tablet 10-08 00:00: 00 Yes [id number] 100mg Take 1 tablet (100 mg total) by mouth daily. Reema mchugh Meloxicam 15 MG oral Tablet -24 00:00: 00 10-08 00:00 :00 No 15mg Take 1 tablet (15 mg total) by mouth daily Take with Meals, STOP IF UPSET STOMACH. Reema mchugh bromphenira mine-pseudo ephedrine-D M (BROMFED DM) 2-30-10 mg/5 mL syrup 09-02 00:00: 00 Yes [id number] 5mL Take 5 mL by mouth 3 (three) times daily as needed for Cold symptoms. [facility] doxycycline hyclate (Vibramycin ) capsule 100 mg 2021-05 22:15: 00 03-31 22:19 :00 No 100mg 100 mg, Oral, ONCE, 1 dose, On 11/7/22 at 1615, GERA
Re ason for Anti-Infec tive: Documented Infection< br>Documen funmilayo Infection Site: Urine
D uration of Therapy: 10 days [facility] cefTRIAXone (ROCEPHIN) 500 mg in NaCl 0.9% (NS) 100 mL piggyback 2021-05 22:15: 00 03-31 22:29 :00 No 500mg 500 mg, IV Piggyback, ONCE, 1 dose, On Thu03/31/22 at 1615, Administer over 30 Minutes, 100 mL
Reas on for Anti-Infec tive: Documented Infection< br>Documen funmilayo Infection Site: Urine
D uration of Therapy: Other (see Comments) [facility] ketorolac (TORADOL) injection 15 mg 2021-05 20:30: 00 03-31 19:38 :00 No 15mg 15 mg, Slow IV Push, ONCE, 1 dose, On Thu03/31/22 at 1430, GERA [facility] NaCl 0.9% (NS) bolus infusion 1,000 mL 2021-05 20:30: 00 03-31 20:39 :00 No 1000mL at 999 mL/hr, 1,000 mL, IV Infusion, ONCE, 1 dose, On Thu03/31/22 at 1430, STAT [facility] aspirin chewable tablet 324 mg 2021-05 20:00: 00 03-31 19:04 :00 No 324mg 324 mg, Oral, ONCE, 1 dose, On Thu03/31/22 at 1400, Routine [facility] nitroglycer in (NITROSTAT) sublingual tablet 0.4 mg 2021-05 19:00: 00 03-31 19:04 :00 No .4mg 0.4 mg, Sublingual , ONCE, 1 dose, On Thu03/31/22 at 1300, GERA [facility] ibuprofen 600 mg tablet 2021-05 00:00: 00 Yes [id number] 600mg Take 1 tablet by mouth every 6 (six) hours as needed for Pain (scale 4-6). [facility] doxycycline hyclate 100 mg capsule 2021-05 00:00: 00 Yes [id number] 100mg Take 1 capsule by mouth in the morning and 1 capsule in the evening. [facility] rosuvastati n (CRESTOR) 10 mg tablet 2021-05 016 00:00: 00 04-09 05:59 :00 No [id number] 10mg Take 1 tablet by mouth at bedtime for 30 days. [facility] dexamethaso ne (DECADRON PHOSPHATE) injection 10 mg 08-29 23:00: 00 08-29 21:53 :00 No 10mg 10 mg, Oral, ONCE, 1 dose, On Rani 08/29/21 at 1800, Routine [facility] ketorolac (TORADOL) injection 30 mg 08-29 23:00: 00 08-29 21:53 :00 No 30mg 30 mg, Intramuscu lar, ONCE, 1 dose, On Rani 08/29/21 at 1800, GERA [facility] ibuprofen 800 mg tablet 08-29 00:00: 00 Yes [id number] 800mg Take 1 tablet by mouth every 6 (six) hours as needed for Pain (scale 4-6). [facility] methocarbam oL 750 mg tablet 08-29 00:00: 00 09-03 04:59 :00 No [id number] 1500mg Take 2 tablets by mouth 2 (two) times daily for 4 days. [facility] trazodone HCl (TRAZODONE ORAL) 2020-05 0 10:19: 15 Yes Take by mouth. [facility] losartan 50 mg tablet 810 00:00: 00 Yes 50mg Take 50 mg by mouth daily. [facility] aspirin chewable tablet 324 mg 2-05 04:30: 00 06-29 03:44 :00 No 324mg 324 mg, Oral, ONCE, 1 dose, Rani 06/28/20 at 2230, Routine [facility] trazodone HCl (TRAZODONE ORAL) 06-05 17:27: 41 Yes Take by mouth. [facility] Vital Signs Vital Name Observation Time Observation Value Comments Jv clark Systolic blood pressure 2024-08-22 23:32:00 128 mm[Hg] [facility] Diastolic blood pressure 2024-08-22 23:32:00 88 mm[Hg] [facility] Heart rate 2024-08-22 23:30:00 87 /min [facility] Body temperature 2024-08-22 23:30:[address] [facility] Respiratory rate 2024-08-22 23:30:00 20 /min [facility] Oxygen saturation in Arterial blood by Pulse oximetry 2024-08-22 23:30:00 97 /min [facility] Body temperature 2024-05-23 17:30:00 36.78 Naomi Reema Seybold - External Respiratory rate 2024-05-23 17:30:00 20 /min Reema Seybold - External Body height 2024-05-23 17:30:00 165.1 cm Dilcia ey Seybold - External Body weight 2024-05-23 17:30:00 111.585 kg Dilcia ey Seybold - External BMI 2024-05-23 17:30:00 40.94 kg/m2 Dilcia ey Seybold - External Oxygen saturation in Arterial blood by Pulse oximetry 2024-05-23 17:30:00 97 /min Reema Seybo ld - External Systolic blood pressure 2024-05-23 17:30:00 100 mm[Hg] Reema Seybo ld - External Diastolic blood pressure 2024-05-23 17:30:00 70 mm[Hg] Reema Seybo ld - External Heart rate 2024-05-23 17:30:00 76 /min Kel y Seybold - External Body temperature 2024-05-19 17:41:00 36.83 Naomi Reema Seybold - External Respiratory rate 2024-05-19 17:41:00 16 /min Reema Seybold - External Body height 2024-05-19 17:41:00 165.1 cm Dilcia ey Seybold - External Body weight 2024-05-19 17:41:00 113.853 kg Dilcia ey Seybold - External BMI 2024-05-19 17:41:00 41.77 kg/m2 Dilcia ey Seybold - External Systolic blood pressure 2024-05-19 17:41:00 132 mm[Hg] Reema Seybo ld - External Diastolic blood pressure 2024-05-19 17:41:00 88 mm[Hg] Reema Seybo ld - External Heart rate 2024-05-19 17:41:00 97 /min Kelse y Seybold - External Systolic blood pressure 2024-05-03 17:30:00 141 mm[Hg] [facility] Diastolic blood pressure 2024-05-03 17:30:00 90 mm[Hg] [facility] Heart rate 2024-05-03 17:30:00 76 /min [facility] Respiratory rate 2024-05-03 17:30:00 13 /min [facility] Oxygen saturation in Arterial blood by Pulse oximetry 2024-05-03 17:30:00 99 /min [facility] Body temperature 2024-05-03 14:53:[address] [facility] Body height 2024-05-03 14:53:00 165.1 cm [facility] Body weight 2024-05-03 14:53:00 106.595 kg [facility] BMI 2024-05-03 14:53:00 39.11 kg/m2 [facility] Systolic blood pressure 2023-10-09 15:07:00 124 mm[Hg] Reema Seybo ld - External Diastolic blood pressure 2023-10-09 15:07:00 86 mm[Hg] Reema Seybo ld - External Heart rate 2023-10-09 15:07:00 72 /min Kelse y Seybold - External Body temperature 2023-10-09 15:07:00 36.72 Naomi Reema Seybold - External Respiratory rate 2023-10-09 15:07:00 18 /min Reema Seybold - External Body height 2023-10-09 15:07:00 165.1 cm Dilcia ey Seybold - External Body weight 2023-10-09 15:07:00 119.75 kg Dilcia Metzger - External BMI 2023-10-09 15:07:00 43.93 kg/m2 Dilcia Metzger - External Oxygen saturation in Arterial blood by Pulse oximetry 2023-10-09 15:07:00 98 /min Reema Beltran ld - External Systolic blood pressure 2022-09-02 19:36:00 130 mm[Hg] [facility] Diastolic blood pressure 2022-09-02 19:36:00 91 mm[Hg] [facility] Heart rate 2022-09-02 19:36:00 95 /min [facility] Body temperature 2022-09-02 19:36:[address] [facility] Respiratory rate 2022-09-02 19:36:00 16 /min [facility] Body height 2022-09-02 19:36:00 [facility] 2022-09-02 19:36:[address] [facility] BMI 2022-09-02 19:36:00 41.20 kg/m2 [facility] Oxygen saturation in Arterial blood by Pulse oximetry 2022-09-02 19:36:00 97 /min [facility] Systolic blood pressure 2022-03-31 22:20:00 111 mm[Hg] [facility] Diastolic blood pressure 2022-03-31 22:20:00 75 mm[Hg] [facility] Heart rate 2022-03-31 22:20:00 83 /min [facility] Respiratory rate 2022-03-31 22:20:00 14 /min [facility] Oxygen saturation in Arterial blood by Pulse oximetry 2022-03-31 22:20:00 98 /min [facility] Body temperature 2022-03-31 18:35:[address] [facility] Body height 2022-03-31 18:35:00 165.1 [facility] weight 2022-03-31 18:35:00 108.863 [facility] BMI 2022-03-31 18:35:00 39.94 kg/m2 [facility] Systolic blood pressure 2022-03-09 22:00:00 129 mm[Hg] [facility] Diastolic blood pressure 2022-03-09 22:00:00 91 mm[Hg] [facility] Heart rate 2022-03-09 22:00:00 72 /min [facility] Respiratory rate 2022-03-09 22:00:00 22 /min [facility] Oxygen saturation in Arterial blood by Pulse oximetry 2022-03-09 22:00:00 97 /min [facility] Body temperature 2022-03-09 18:50:[address] [facility] Body height 2022-03-09 18:50:00 165.1 cm [facility] Body weight 2022-03-09 18:50:00 108.863 kg [facility] BMI 2022-03-09 18:50:00 39.94 kg/m2 [facility] Systolic blood pressure 2021-08-29 22:57:00 152 mm[Hg] [facility] Diastolic blood pressure 2021-08-29 22:57:00 96 mm[Hg] [facility] Heart rate 2021-08-29 22:57:00 84 /min [facility] Respiratory rate 2021-08-29 22:57:00 18 /min [facility] Oxygen saturation in Arterial blood by Pulse oximetry 2021-08-29 22:57:00 99 /min [facility] Body temperature 2021-08-29 21:06:[address] [facility] Body weight 2021-08-29 21:06:00 111.131 kg [facility] BMI 2021-08-29 21:06:00 40.77 kg/m2 [facility] Systolic blood pressure 2021-02-22 15:18:00 126 mm[Hg] [facility] Diastolic blood pressure 2021-02-22 15:18:00 85 mm[Hg] [facility] Heart rate 2021-02-22 15:18:00 88 /min [facility] Body temperature 2021-02-22 15:18:[address] [facility] Respiratory rate 2021-02-22 15:18:00 16 /min [facility] Body height 2021-02-22 15:18:00 165.1 cm [facility] Body weight 2021-02-22 15:18:00 111.449 kg [facility] BMI 2021-02-22 15:18:00 40.89 kg/m2 [facility] Oxygen saturation in Arterial blood by Pulse oximetry 2021-02-22 15:18:00 99 /min [facility] Systolic blood pressure 2020-06-29 06:00:00 121 mm[Hg] [facility] Diastolic blood pressure 2020-06-29 06:00:00 94 mm[Hg] [facility] Heart rate 2020-06-29 06:00:00 83 /min [facility] Respiratory rate 2020-06-29 06:00:00 20 /min [facility] Oxygen saturation in Arterial blood by Pulse oximetry 2020-06-29 06:00:00 97 /min [facility] Body temperature 2020-06-29 02:47:[address] [facility] Body height 2020-06-29 02:47:00 165.1 cm [facility] Body weight 2020-06-29 02:47:00 104.327 kg [facility] BMI 2020-06-29 02:47:00 38.27 kg/m2 [facility] Procedures Procedure Date / Time Performed Performing Clinician Source URINALYSIS 2024-05-03 18:03:00 [facility] ABDOMEN PELVIS W CONTRAST 2024-05-03 16:10:[address] [facility] LIPASE 2024-05-03 15:15:00 [facility] COMP. METABOLIC PANEL ([id number]) 2024-05-03 15:15:[address] [facility] CBC WITH DIFF 2024-05-03 15:15:00 Melendrez, [facility] XR CHEST 2 VW 2022-10-08 18:50:09 Requisition, Paper U [facility] POCT MOLECULAR FLU 2022-09-02 19:45:00 Unknown, Attend ing [facility] ASSIGNMENT OF BENEFITS 2022-09-02 19:30:06 Docto r Unassigned, Diablock [facility] TROPONIN I 2022-03-31 21:01:00 [facility] URINALYSIS 2022-03-31 20:40:00 Lana Schwab [facility] D-DIMER 2022-03-31 19:32:00 [facility] XR CHEST 1 VW 2022-03-31 19:06:34 Lana Schwab [facility] MAGNESIUM 2022-03-31 18:51:00 [facility] TROPONIN I 2022-03-31 18:51:00 [facility] COMP. METABOLIC PANEL ([id number]) 2022-03-31 18:51:00 Lana Schwab Felicity [facility] CBC WITH DIFF 2022-03-31 18:51:00 Lana Schwab [facility] N-TERMINAL PRO-BNP 2022-03-31 18:51:[address] [facility] CONSENT/REFUSAL FOR DIAGNOSIS AND TREATMENT 2022-03-31 18:30:49 Doctor Unassigned, Diablock [facility] TROPONIN I 2022-03-09 21:09:00 Sergey Melendrez [facility] LIPID PANEL ([id number])(TOTAL CHOLESTEROL, TRIGLYCERIDES, HDL) 2022-03-09 19:48:[address] [facility] GLYCOSYLATED HEMOGLOBIN (A1C) 2022-03-09 19:48:[address] [facility] XR CHEST 1 VW 2022-03-09 19:01:15 Sergey Melendrez [facility] LIPASE 2022-03-09 18:52:00 Sergey Melendrez [facility] MAGNESIUM 2022-03-09 18:52:[facility] TROPONIN I 2022-03-09 18:52:00 Singer [facility] COMP. METABOLIC PANEL ([id number]) 2022-03-09 18:52:00 Singer [facility] CBC WITH DIFF 2022-03-09 18:52:00 Singer [facility] PROTHROMBIN TIME / INR 2022-03-09 18:52:[address] [facility] ACTIVATED PARTIAL THRMPLAS BULMARO 2022-03-09 18:52:00 Singer [facility] N-TERMINAL PRO-BNP 2022-03-09 18:52:00 Singer [facility] CONSENT/REFUSAL FOR DIAGNOSIS AND TREATMENT 2022-03-09 18:39:49 Doctor Unassigned, Diablock [facility] CT CERVICAL SPINE WO CONTRAST 2021-08-29 22:12:[address] [facility] CT HEAD WO CONTRAST 2021-08-29 22:12:[address] [facility] NOTICE OF PRIVACY PRACTICES 2021-08-29 21:02:46 Doctor Unassigned, Diablock [facility] CONSENT/REFUSAL FOR DIAGNOSIS AND TREATMENT 2021-08-29 21:02:29 Doctor Unassigned, Diablock [facility] POCT GRP A STREP (MOLECULAR) 2021-02-22 15:20:00 [facility] (MOLECULAR TESTING NUCLEIC ACID AMPLIFICATION) 2021-01-27 22:13:00 Dani [facility] LAB ONLY COVID INTERPRETATION 2021-01-27 22:13:00 [facility] 2020-06-29 04:27:00 Tran Tobin [facility] XR CHEST 1 VW 2020-06-29 03:41:31 [facility] 2020-06-29 02:55:00 Tran Tobin [facility] TROPONIN I 2020-06-29 02:55:00 Tran Tobin [facility] COMP. METABOLIC PANEL ([id number]) 2020-06-29 02:55:[address] [facility] CBC WITH DIFF 2020-06-29 02:55:00 [facility] / INR 2020-06-29 02:55:[address] [facility] ACTIVATED PARTIAL THRMPLAS BULMARO 2020-06-29 02:55:[address] [facility] NOTICE OF PRIVACY PRACTICES 2020-06-29 02:39:50 Doctor Unassigned, Diablock [facility] CONSENT/REFUSAL FOR DIAGNOSIS AND TREATMENT 2020-06-29 02:39:30 Doctor Unassigned, Diablock [facility] COVID-19 (PCR MOLECULAR TESTING) 2019-12-06 14:49:[address] [facility] Hospital Encounters Start Date/Time End Date/Time Encounter Type Admission Type Attending [facility] Care Facility Care Department Encounter ID Source 2024-08-22 18:45:00 2024-08-22 18:45:00 Nurse Visit Nurse, [facility] Unknown, Attending Prakash Richard Nurse, [facility] 1.2.840.114 350.1.13.10 4.2.7.2.686 [id number] [facility] 2024-08-22 18:45:00 2024-08-22 18:40:14 Outpatient PRAKASH LOZA [facility] [id number] [facility] 2024-07-31 00:00:00 2024-07-31 00:00:00 Outpatient NICOLA FARIAS [id number] Re[facility] Metzger 2024-07-18 13:30:00 2024-07-18 13:30:00 Outpatient VENECIA TOPETE [id number] Reema Metzger 2024-06-18 00:00:00 2024-06-18 00:00:00 Outpatient NICOLA FARIAS REEMA LEAVITT [id number] Reema Domenica 2024-06-01 13:50:00 2024-06-01 13:50:00 Outpatient PRAVEEN VERAS REEMA LEAVITT [id number] Reema Domenica 2024-06-01 13:50:00 2024-06-01 13:50:00 Outpatient RITOPRAVEEN ESQUIVEL REEMA LEAVITT [id number] Reema [facility] 2024-05-23 13:00:00 2024-05-23 13:00:00 Outpatient DARLING REEMA LEAVITT [id number] [facility] 2024-05-23 11:30:00 2024-05-23 11:30:00 Outpatient VENECIA TOPETE REEMA LEAVITT [id number] [facility] 2024-05-23 00:00:00 2024-05-23 00:00:00 Outpatient RITO PRAVEEN LEAVITT [id number] Reema [facility] 2024-05-20 13:00:00 2024-05-20 13:00:00 Outpatient JANY PERERA REEMA LEAVITT [id number] [facility] 2024-05-19 11:30:00 2024-05-19 11:30:00 Outpatient RITO PRAVEEN LEAVITT [id number] [facility] 2024-05-03 08:54:00 2024-05-03 12:55:00 Emergency X SERGEY MELENDREZ PHILLIP [facility] [id number] [facility] 2024-05-03 08:54:00 2024-05-03 12:55:00 Emergency Sergey Melendrez AT [facility] [id number] 350.1.13.10 4.2.7.2.686 [id number] [facility] 2024-04-28 00:00:00 2024-04-28 00:00:00 Outpatient NICOLA FARIAS [facility] [id number] [facility]24-04-25 00:00:00 2024-04-25 00:00:00 Outpatient NICOLA FARIAS REEMA [id number] Reema [facility] 2024-03-16 00:00:00 2024-03-16 00:00:00 Outpatient NICOLA FARIAS REEMA [id number] Reema [facility] 2024-03-15 00:00:00 2024-03-15 00:00:00 Outpatient NICOLA FARIAS REEMA [id number] Reema [facility] 2024-03-15 00:00:00 2024-03-15 00:00:00 Outpatient NICOLA FARIAS REEMA [id number] Reema [facility] 2024-03-14 11:05:00 2024-03-14 11:05:00 Outpatient DARLNIG LEAVITT REEMA [id number] [facility] 2024-03-03 15:45:00 2024-03-03 15:45:00 Outpatient KAREN OLGUIN [id number] [facility] 2024-03-01 11:15:00 2024-03-01 11:15:00 Outpatient MATTJOSE ALBERTO PORTILLO REEMA LEAVITT [id number] [facility] 2024-03-01 00:00:00 2024-03-01 00:00:00 Outpatient NICOLA FARIAS REEMA [id number] [facility] 2024-02-29 00:00:00 2024-02-29 00:00:00 Outpatient NICOLA FARIAS REEMA LEAVITT [id number] [facility] 2024-02-01 00:00:00 2024-02-01 00:00:00 Outpatient NICOLA FARIAS REEMA LEAVITT [id number] Reema [facility] 2024-01-29 00:00:00 2024-01-29 00:00:00 Outpatient NICOLA FARIAS REEMA LEAVITT [id number] Reema [facility] 2023-11-18 14:30:00 2023-11-18 14:30:00 Outpatient NADER AUGUSTINAREJ Carlos LEAVITT [id number] Reema [facility] 2023-11-13 10:30:00 2023-11-13 10:30:00 Outpatient NICOLA FARIAS REEMA [id number] [facility] 2023-10-29 00:00:00 2023-10-29 00:00:00 Outpatient NICOLA FARIAS REEMA [id number] [facility] 2023-10-29 00:00:00 2023-10-29 00:00:00 Outpatient NICOLA FARIAS REEMA [id number] [facility] 2023-10-20 00:00:00 2023-10-20 00:00:00 Outpatient MD REEMA TRAN [id number] [facility] 2023-10-20 00:00:00 2023-10-20 00:00:00 Outpatient NICOLA FARIAS REEMA [id number] [facility] 2023-10-19 00:00:00 2023-10-19 00:00:00 Outpatient NICOLA FARIAS REEMA [id number] [facility] 2023-10-19 00:00:00 2023-10-19 00:00:00 Outpatient NICOLA FARIAS REEMA [id number] [facility] 2023-10-16 12:30:00 2023-10-16 12:30:00 Outpatient IRAJ MILLS REEMA [id number] [facility] 2023-10-13 07:55:00 2023-10-13 07:55:00 Outpatient LABPaulette REEMA LEAVITT [id number] Reema ybold 2023-10-13 00:00:00 2023-10-13 00:00:00 Outpatient NICOLA FARIAS REEMA [id number] Reema Seybold 2023-10-09 11:15:00 2023-10-09 11:15:00 Outpatient LAB90 REEMA LEAVITT [id number] Reema Seybold 2023-10-09 10:30:00 2023-10-09 10:30:00 Outpatient NICOLA FARIAS REEMA LEAVITT [id number] Reema Seybold 2023-10-09 10:30:00 2023-10-09 10:30:00 Outpatient NICOLA FARIASMOY LEAVITT [id number] Reema [facility] 2023-09-23 00:00:00 2023-09-23 00:00:00 Outpatient YUE HOYOS [id number] [facility] 2023-09-16 13:40:00 2023-09-16 13:40:00 Outpatient YUE HOYOS [id number] Reema [facility] 2023-09-16 12:50:00 2023-09-16 12:50:00 Outpatient REEMA LEAVITT [id number] Reema [facility] 2023-09-16 00:00:00 2023-09-16 00:00:00 Outpatient YUE HOYOS [id number] [facility] 2023-02-10 10:07:08 2023-02-10 10:07:08 Outpatient SFA SFA [id number] Jim Valentin 2023-02-05 14:27:55 2023-02-05 14:27:55 Outpatient SFA SFA [id number] Jim Rodriguez Homero 2022-12-20 10:46:43 2022-12-20 10:46:43 Outpatient SFA SFA [id number] Jim Valentin 2022-10-08 13:41:35 2022-10-08 23:59:00 Outpatient R RADIOLOGY [facility] [id number] [facility] 2022-10-08 13:30:00 2022-10-08 23:59:00 Hospital Encounter Radiology [facility] ..840.114 350.1.13.10 4.2.7.2.686 [id number] [facility] 2022-09-04 00:00:00 2022-09-04 00:00:00 Telephone Essie Carrera [facility] 1..840.114 350.1.13.10 4.2.7.2.686 [id number] [facility] 2022-09-02 14:40:00 2022-09-02 15:17:11 Outpatient R ESSIE CARRERA [facility] [id number] [facility] 2022-09-02 14:40:00 2022-09-02 15:17:11 Urgent Care Essie Carrera Unknown, Attending [facility] 1.2840.114 350.1.13.10 4.2.7.2.686 [id number] [facility] 2022-09-02 00:00:00 2022-09-02 00:00:00 Orders Only Doctor Unassigned, Diablock [facility] 1..114 350.1.13.10 4.2.7.2.686 [id number] [facility] 2022-03-31 12:37:00 2022-03-31 16:32:00 Emergency X Lana SCHWAB [facility] ERT [id number] [facility] 2022-03-31 12:37:00 2022-03-31 16:32:00 Emergency Lana Schwab [facility] 1.0.114 350.1.13.10 4.2.7.2.686 [id number] [facility] 2022-03-09 13:45:00 2022-03-09 17:27:00 Emergency SERGEY BOYER [facility] ERT [id number] [facility] 2022-03-09 13:45:00 2022-03-09 17:27:00 Emergency Sergey Melendrez [facility] 1.0.114 350.1.13.10 4.2.7.2.686 [id number] [facility] 2021-08-29 16:09:00 2021-08-29 17:59:00 Emergency Eunice Rowley [facility] 1.2840.114 350.1.13.10 4.2.7.2.686 [id number] [facility] 2021-08-29 16:09:00 2021-08-29 17:59:00 Emergency X EUNICE ROWLEY [facility] ERT [id number] [facility] 2021-08-29 00:00:00 2021-08-29 00:00:00 Orders Only Doctor Unassigned, Diablock [facility] 1.84.114 350.1.13.10 4.2.7.2.686 [id number] [facility] 2021-02-22 10:12:18 2021-02-22 10:32:18 Urgent Care Cora Ordoñez Unknown, Attending [facility] Building 1.84.114 350.1.13.10 4.2.7.2.686 [id number] [facility] 2021-02-22 10:20:00 2021-02-22 10:20:00 Outpatient R OBINNA, ATTENDING [facility] [id number] [facility] 2021-01-28 00:00:00 2021-01-28 00:00:00 Telephone Pcp, Patient Does Not Have A [facility] 1.84.114 350.1.13.10 4.2.7.2.686 [id number] [facility] 2021-01-27 17:40:00 2021-01-27 17:40:00 Outpatient R PINKY LOUISE [facility] [id number] [facility] 2021-01-27 17:04:52 2021-01-27 17:19:00 Laboratory Only Only, Ang Db Test Dani [facility] 1.84.114 350.1.13.10 4.2.7.2.686 [id number] [facility] 2020-06-28 20:43:00 2020-06-29 00:35:00 Emergency Tran Tobin [facility] 1.2.840.114 350.1.13.10 4.2.7.2.686 [id number] [facility] 2020-06-28 20:40:00 2020-06-28 20:40:00 Emergency X [facility] ERT [id number] [facility] 2019-12-06 09:48:08 2020-02-15 10:30:18 Laboratory Only Only, Web Test Unknown, Attending [facility] [place] 1.2.840.114 350.1.13.10 4.2.7.2.686 [id number] [facility] Results Test Description Test Time Test Comments Results Resul t Comments Source CT Abdomen pelvis w contrast 2024-04-24 0 16:29:53 EXAM: CT ABDOMEN AND PELVIS WITH CONTRAST HISTORY: LLQ abdominal pain COMPARISON: 10/01/2016 TECHNIQUE: Contiguous axial imaging was performed following administrationof intravenous contrast. Coronal and sagittal reconstructions wereobtained. FINDINGS: Minimal dependent atelectasis in the lung bases. The gallbladder is surgically absent. No biliary ductal dilatation. Thereis diffuse hepatic steatosis. The liver is slightly enlarged, decreasedfrom previous. The spleen, pancreas, adrenal glands and left kidney arenormal. 1.5 cm cyst at the superior pole of the right kidney. Subcentimetercyst at the superior pole of the right kidney. The aorta and iliac arteriesare normal in caliber. The prostate gland appears mildly enlarged. Bladder wall appears slightlythickened. There is no bowel wall thickening or obstruction. The appendixis normal. Minimal sigmoid diverticulosis. There is no free fluid. Mildly enlarged periportal lymph node is likelyreactive associated with hepatocellular disease. There are tinyfat-containing inguinal hernias. Unchanged small intramuscular lipomawithin the left iliopsoas. Mild degenerative change involving the spine is present. [facility] 15:41:14* Test Item Value Reference Range Interpretation Comme nts LIPASE (test code = 5163733291) 53 U/L 0-220 Lab Interpretation (test cod e = 99871-5) Normal [facility] with [id number] 15:29:56* Test Item Value Reference Range Interpretation Comme nts WBC (test code = 6690-2) 10.27 4.20-10.70 RBC (test code = 789-8) 4.80 4.26-5.52 HGB (test code = 718-7) 14.6 g/dL 12.2-16.4 HCT (test code = 4544-3) 44.2 % 38.4-49.3 MCV (test code = 787-2) 92.1 fL 81.7-95.6 MCH (test code = 785-6) 30.4 pg 26.1-32.7 MCHC (test code = 786-4) 33.0 g/dL 31.2-35.0 RDW-SD (test code = 66031-1) 43.6 fL 38.5-51.6 RDW-CV (test code = 788-0) 12.9 % 12.1-15.4 PLT (test code = 777-3) 292 150-328 MPV (test code = 05346-5) 10.9 fL 9.8-13.0 NRBC/100 WBC (test code = 0128252361) 0.0 0.0-10.0 NRBC x10^3 (test code = 1397620416) See_Comment [Automated messa ge] The system which generated this result transmitted reference range: 10*3/?L. The reference range was not used to interpret this result as normal/abnormal. GRAN MAT (NEUT) % (test code = 770-8) 57.4 % IMM GRAN % (test code = 7577856523) 0.30 % LYMPH % (test code = 736-9) 31.9 % MONO % (test code = 5905-5) 7.5 % EOS % (test code = 713-8) 2.3 % BASO % (test code = 706-2) 0.6 % GRAN MAT x10^3(ANC) (test code = 1648634117) 5.89 10*3/uL 1.99-6.95 IMM GRAN x10^3 (test code = 9012766265) 0.03 10*3/uL 0.00-0.06 LYMPH x10^3 (test code = 731-0) 3.28 10*3/uL 1.09-3.23 H MONO x10^3 (test code = 742-7) 0.77 10*3/uL 0.36-1.02 EOS x10^3 (test code = 711-2) 0.24 10*3/uL 0.06-0.53 BASO x10^3 (test code = 704-7) 0.06 10*3/uL 0.01-0.09 Lab Interpretation (test code = 50007-1) Abnormal [facility] MOLECULAR [id number] 19:57:37* Test Item Value Reference Range Interpretation Comme nts POCT Molecular FluA (test co de = 18152-9) Negative Negative POCT Molecular FluB (test co de = 80423-2) Negative Negative Lab Interpretation (test cod e = 17936-8) Normal [facility]D-[id number] 20:27:03* Test Item Value Reference Range Interpretation Comments D-DIMER (test code = 6549054576) See_Comment [Automated message] The system which generated [...] a diagnosis. Lab Interpretation (test code = 48720-5) Normal [facility] GRP A STREP (MOLECULAR)2021-02-22 15:31:00* Test Item Value Reference Range Interpretation Comme nts POCT GP A STREP (test code = 24909-3) neg Negative - Negative ELIAZAR (test code = ELIAZAR) accurate developme nt and interpretation of all internal controls Lab Interpretation (test code = 82188-1) Normal [facility] COVID [id number] 15:24:21COVID DMT InterpretationInterpretation/Recommendations: Molecular NAAT Tests for Active Infection with the SARS-CoV-2 Virus: The current test result is positive for the SARS-CoV-2 virus that causes COVID-19 illness. In kxfq-sy-xdblrvtq illness, the patient may be considered no [...] COVID-19 testing the patient has had at [facility], including molecular NAAT testing (more commonly known as PCR testing and Rapid ID Now testing) and antibody testing.It does not take into account any testing that a patient has had outside of the [facility] medical record. [facility] LABORATORY SERVICESCOVID CunyqnlVMXK-IrP-5 NAAT (no units) ? ? Date ? Value? 01/27/2021 ? Positive (A) ? 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 ?It is used under Emergency Use [...] clinically indicated. Lab Interpretation (test code = 24181-1) Abnormal [facility] HospitalTRFORMERLY [facility] SPARTAN[facility]GRAMOS [id number] 05:53:00* Test Item Value Reference Range Interpretation Comme nts TROPONIN I (test code = 3164554263) <0.012 See_Comment [Automated message] The system which [...] biotin. ? Lab Interpretation (test code = 16314-5) Normal [facility] HospitalXR CHEST 1 [id number] 04:16:06Impression: No radiographic evidence for acute cardiopulmonary disease. RL: 460 AFC: [id number] Ordering physician: TRAN TOBIN Indication: Chest pain [...] radiographic evidence for acute cardiopulmonary disease.RL: 460AFC: [id number] signed by Sarai Del Rio MD, PhD at 06/28/2020 10:16 [facility] [id number] 04:03:00* Test Item Value Reference Range Interpretation [...] 34.2 g/dL 31.2-35 RDW-SD (test code = 33545-5) 40.3 fL 38.5-51.6 RDW-CV (test code = 788-0) 12.2 % 12.1-15.4 PLT (test code = 777-3) See_Comment [Automated HiFiKiddoa ge] The system which generated this result transmitted reference range: 150 - 328 10*3/?L. The reference range was not used to interpret this result as normal/abnormal. MPV (test code = 97563-3) 12.6 fL 9.8-13 IPF % (test code = 0652654890) 4.8 % 1.2-10.7 Platelet count measured by fluorescence method. NRBC/100 WBC (test code = 7901676465) See_Comment [Automated Heyday ssage] The system which generated this result transmitted reference range: 0.0 - 10.0 /100 WBCs. The reference range was not used to interpret this result as normal/abnormal. NRBC x10^3 (test code = 7051265481) <0.01 See_Comment [Automated [employer] Metacloud] The system which generated this result transmitted reference range: 10*3/?L. The reference range was not used to interpret this result as normal/abnormal. GRAN MAT (NEUT) % (test code = 770-8) 47.4 % IMM GRAN % (test code = 2288365778) 0.50 % LYMPH % (test code = 736-9) 40.6 % MONO % (test code = 5905-5) 8.5 % EOS % (test code = 713-8) 2.2 % BASO % (test code = 706-2) 0.8 % GRAN MAT x10^3(ANC) (test code = 5110265214) 4.56 10*3/uL 1.99-6.95 IMM GRAN x10^3 (test code = 0676287385) 0.05 10*3/uL 0-0.06 LYMPH x10^3 (test code = 731-0) 3.91 10*3/uL 1.09-3.23 H MONO x10^3 (test code = 742-7) 0.82 10*3/uL 0.36-1.02 EOS x10^3 (test code = 711-2) 0.21 10*3/uL 0.06-0.53 BASO x10^3 (test code = 704-7) 0.08 10*3/uL 0.01-0.09 REACT LYMPHS (test code = 6897138308) Rare Lab Interpretation (test code = 91927-6) Abnormal [facility] HospitalSHIRLEY [id number] 03:49:00* Test Item Value Reference Range Interpretation Comme nts TROPONIN I (test code = 8786612794) <0.012 See_Comment [Automated message] The system which [...] biotin. ? Lab Interpretation (test code = 45836-8) Normal [facility] HospitalaPTT2021-02-05 03:44:00* Test Item Value Reference Range Interpretation Comme [facility] APTT Patient (test code = 3173-2) See_Comment [Automated message] The system which generated this result transmitted reference range: 23 - 38 Seconds. The reference range was not used to interpret this result as normal/abnormal. ELIAZAR (test code = ELIAZAR) The [facility] patient population mean normal value for aPTT is 30 seconds. Lab Interpretation (test code = 36022-9) Normal [facility] HospitalPROTHROMBIN TIME / [id number] 03:42:00* Test Item Value Reference Range Interpretation Comme [facility] PROTIME PATIENT (test code = 5964-2) See_Comment [Automated messa ge] The system which generated this result transmitted reference range: 12.0 - 14.7 Seconds. The reference range was not used to interpret this result as normal/abnormal. INR (test code = 6301-6) Normal INR <1.1; Warfarin Therapeutic range 2.0 to 3.0 or 2.5 to 3.5, depending upon the indications. Lab Interpretation (test code = 00179-0) Normal [facility] HospitalCOMP. METABOLIC PANEL (85076)2020-06-29 03:38:00* Test Item Value Reference Range Interpretation Comme [facility] NA (test code = 7077033719) 140 mmol/L 135-145 K (test code = 3840786918) 3.7 mmol/L 3.5-5 CL (test code = 0910699938) 105 mmol/L 98-108 CO2 TOTAL (test code = 0747137090) 27 mmol/L 23-31 AGAP (test code = 1414651079) 2-16 BUN (test code = 6327334247) 10 mg/dL 7-23 GLUCOSE (test code = 8554315969) 140 mg/dL 70-110 H CREATININE (test code = 0704872498) 0.70 mg/dL 0.6-1.25 TOTAL BILI (test code = 3944750745) 0.5 mg/dL 0.1-1.1 CALCIUM (test code = 0665893337) 9.5 mg/dL 8.6-10.6 T PROTEIN (test code = 4232135187) 6.7 g/dL 6.3-8.2 ALBUMIN (test code = 1496420396) 4.1 g/dL 3.5-5 ALK PHOS (test code = 5321665792) 40 U/L 34-122 ALTv (test code = 1742-6) 60 U/L 5-50 H AST(SGOT) (test code = 9146082529) 32 U/L 13-40 eGFR Calculation (Non-) (test code = 4726460678) mL/min/1.73m2 eGFR Calculation () (test code = 9992234627) mL/min/1.73m2 ELIAZAR (test code = ELIAZAR) Association [...] imaging tests). Lab Interpretation (test code = 05815-6) [facility] BranchLIP[facility], [id number] 03:38:00* Test Item Value Reference Range Interpretation Comme nts LIPASE (test code = 8605452546) 100 U/L 0-220 Lab Interpretation (test cod e = 79293-6) Normal [facility] HospitalCOVID-[facility] (PCR MOLECULAR TESTING)2019-12-09 00:53:00* Test Item Value Reference Range Interpretation Comme nts SARS-CoV-2 PCR (test code = 86364-2) Not Detected Not Detected ELIAZAR (test code = ELIAZAR) Disclaimer: This t est was developed and its performance characteristics determined by [facility]. It has not been cleared or approved [...] patient testing. Lab Interpretation (test code = 12853-8) Normal [facility] Notes Date/Time Note Provider Source 2024-05-19 11:41:24 Chief Complaint Patient presents with Hematuria Gross- history of kidney stones Vanesa Mansfield CMA II [facility] 2024-05-03 12:53:24 Patient is awake and alert, oriented x4. Speech is clear and appropriate. Respirations even and unlabored, no distress. Ambulatory with a steady gait. Reviewed discharge instructions, follow-up care, and RX with patient, verbalizes understanding. IDA Wolf RN [facility] 2024-05-03 08:51:50 Mid to lower abdominal pain, nausea, and dizziness since yesterday. Also reporting shortness of breath since this AM. Denies chest pain, fevers, dysuria. Peeing/pooping OK. Vitally stable, afebrile at triage. HX: HTN, HLD, diverticulitis. TEACHER Naomi Larios RN [facility] 2023-10-09 10:13:37 Chief Complaint Patient presents with New Patient Establish Care Fasting for lab. Is mot currently on medications Kiera Pérez LVN [facility] 2023-09-16 14:05:58 Chief Complaint Patient presents with Knee Pain Right knee pain after fall x 2-3 weeks ago [facility]
[2024-08-28] MEDS ORDERED: NA CHLORIDE 0.9% 1,000 ML ONE (19:58)
[2024-08-28 20:18] LABS: Specific Gravity > 1.030 (1.005-1.030); Sqamous Epithelial <5 /HPF (None Seen); Transitional Epithelial <5 /HPF (None Seen); Urine Bacteria <20 /HPF (<20); Urine Bilirubin 1+ (Negative); Urine Blood Negative (Negative); Urine Clarity Turbid (Clear); Urine Color Yellow (Yellow); Urine Culture Reflex Order NOT NEEDED; Urine Glucose TRACE (Negative); Urine Ketones NEGATIVE (Negative); Urine Micro Reflex YN NO BILL MICROSCOPIC; Urine Mucus 1+ /HPF (None Seen); Urine Nitrite NEGATIVE (Negative); Urine Protein TRACE (Negative); Urine RBC <5 /HPF (None Seen); Urine Urobilinogen Normal (Normal); Urine WBC <5 /HPF (<5); Urine pH 5.5 (5.0-7.0)
[2024-08-28 20:18] LABS: Absolute Eosinophils 0.1 K/uL (0-0.5); Absolute Lymphocytes (CBC) 0.8 K/uL (0.7-4.9); Absolute Monocytes 0.4 K/uL (0.1-1.3); Absolute Neutrophil 9.6 K/uL (1.8-8.0); Basophils % 0.3 % (0-1.3); Eosinophils % 0.6 % (0-4.4); Hematocrit 46.4 % (39.6-49.0); Hemoglobin 15.7 g/dL (13.6-17.9); Lymphocytes % 7.1 % (15.3-44.8); MCH 29.8 pg (27.0-35.0); MCHC 33.9 g/dL (32.0-36.0); MCV 88.1 fL (80-100); MPV 8.6 fL (7.6-11.3); Monocytes % 3.3 % (3.3-12.3); Neutrophils % 88.7 % (41.7-73.7); Platelets 247 thou/uL (152-406); RBC Red Blood Cell Count 5.27 M/uL (4.33-5.43); Red Cell Distribution Width 13.4 % (12.1-15.2)
[2024-08-28] MEDS ORDERED: METOCLOPRAMIDE 10 MG/2mL INJ ONE (20:31)
[2024-08-28] MEDS ORDERED: DICYCLOMINE HCL 20 MG/2 ML AMP IM ONE (20:31)
[2024-08-28] MEDS ORDERED: NA CHLORIDE 0.9% 50 ML ONE (20:31)
[2024-08-28 20:35] LABS: Albumin 3.7 g/dL (3.4-5.0); Albumin/Globulin Ratio 1.1 (1.1-1.8); Anion Gap 8.9 mEq/L (5.0-15.0); Bilirubin Total 0.7 mg/dL (0.2-1.0); Globulin 3.5 g/dL (2.3-3.5); Potassium 3.9 mEq/L (3.5-5.1); Protein, Total 7.2 g/dL (6.4-8.2)
[2024-08-28 21:02] LABS: Band Neutrophils 10 % (0-1); Differential Total Cells Count 100; Lymphocytes 11 % (15-42); Monocytes 4 % (0-10); Reactive Lymphocytes 5 %; Segmented Neutrophils 69 % (40-80)
[2024-08-28 21:03] LABS: Blood Morphology Comment NOT SEEN (NOT SEEN); Platelet Estimate ADEQ
--- NOTE | 2024-08-28 22:15 | RAD REPORT ---
EXAMINATION: CT Abdomen Pelvis W Contrast CLINICAL INDICATION: Male, 44 years old. ABD PAIN TECHNIQUE: CT abdomen and pelvis was performed, after the administration of IV contrast, as per [facility]. Axial, sagittal and coronal reconstructions were obtained. One or more of the following dose reduction techniques were used: Automated exposure control, adjustment of the mA and k V according to patient size, and iterative reconstruction. Unless otherwise specified, incidental findings do not require dedicated imaging follow-up. COMPARISON: 11/27/2021 FINDINGS: LOWER CHEST: The visualized lung bases are clear. LIVER: Mild fatty liver is present. No focal lesion or biliary dilataion is seen. BILIARY SYSTEM: Status post cholecystectomy. SPLEEN: Normal size. No focal lesion. PANCREAS: No mass, ductal dilation, or fransisca-pancreatic fluid. ADRENALS: Normal; no mass. KIDNEYS: Normal size and contour. No hydronephrosis. URINARY BLADDER: Unremarkable. GASTROINTESTINAL TRACT: No evidence of free air, significant intra-abdominal free fluid, bowel obstru ction or abscess. APPENDIX: Normal appendix. LYMPH NODES: No lymphadenopathy. MUSCULOSKELETAL: No acute or suspicious osseous abnormality. ADDITIONAL FINDINGS: None. IMPRESSION: No acute or concerning abnormalities seen in the abdomen or pelvis.
--- NOTE | 2024-08-28 22:53 | ER ---
Nurse's Notes [facility] Name: Simon Sauceda Jr Age: 44 yrs Sex: Male : 1980 Arrival Date: 08/28/2024 Time: 19:14 Bed 5 Private MD: Diagnosis: Abdominal pain, unspecified;Other abnormal findings in urine Presentation: 08/28 19:28 Chief complaint: Patient states: I have been having pain in my stomach around my belly jb4 button that is a burning ripping sensation. I went to the [place] ER last week and they did not find anything. Coronavirus screen: At this time, the client does not indicate any symptoms associated with coronavirus-19. Ebola Screen: No symptoms or risks identified at this time. Initial Sepsis Screen: Does the patient meet any 2 criteria? No. Patient's initial sepsis screen is negative. Does the patient have a suspected source of infection? No. Patient's initial sepsis screen is negative. Risk Assessment: Do you want to hurt yourself or someone else? Patient reports no desire to harm self or others. Onset of symptoms was September 22, 2024. Transition of care: patient was not received from another setting of care. 19:28 Method Of Arrival: Ambulatory jb4 19:28 Acuity: ESTER 3 jb4 Triage Assessment: 19:31 General: Appears in no apparent distress. uncomfortable, Behavior is calm, cooperative, jb4 appropriate for age. Pain: Complains of pain in umbilical area Pain does not radiate. Pain currently is 9 out of 10 on a pain scale. Quality of pain is described as burning, ripping Pain began 08/23/24 Is continuous. Neuro: Level of Consciousness is awake, alert, obeys commands, Oriented to person, place, time, situation. Cardiovascular: Patient's skin is warm and dry. Respiratory: Reports shortness of breath on exertion Airway is patent Respiratory effort is even, unlabored, Respiratory pattern is regular, symmetrical. GI: Abdomen is round distended, Reports nausea, vomiting. Derm: Skin is intact, Skin is pink, warm \T\ dry. Musculoskeletal: Circulation, motion, and sensation intact. Range of motion: intact in all extremities. Historical: - Allergies: 19:31 NKA; jb4 - PMHx: 19:31 Anxiety; Asthma; Bipolar disorder; chronic back pain; Enlarged Heart; fatty liver; jb4 headache; Hypertensive disorder; Kidney stones; scoliosis; Anemia; Diabetes mellitus; - PSHx: 19:31 Cholecystectomy; kidney stone removal; jb4 - Immunization history:: Adult Immunizations up to date. - Infectious Disease History:: Denies. - Social history:: Smoking status: Reported history of juuling and/or vaping. Screenin:53 [facility] ED Fall Risk Assessment (Adult) History of falling in the last 3 months, jb4 including since admission No falls in past 3 months (0 pts) Confusion or Disorientation No (0 pts) Intoxicated or Sedated No (0 pts) Impaired Gait No (0 pts) Mobility Assist Device Used No (0 pt) Altered Elimination No (0 pt) Score/Fall Risk Level 0 - 2 = Low Risk Oriented to surroundings, Maintained a safe environment, Educated pt \T\ family on fall prevention, incl call for assistance when getting out of bed, Hourly rounding (assess needs \T\ fall precautionary measures) done. Abuse screen: Denies threats or abuse. Nutritional screening: No deficits noted. Tuberculosis screening: No symptoms or risk factors identified. Assessment: 19:50 General: Appears in no apparent distress. uncomfortable, obese, Behavior is calm, jb4 cooperative, appropriate for age. Pain: Complains of pain in umbilical area Pain does not radiate. Pain currently is 9 out of 10 on a pain scale. at worst was 10 out of 10 on a pain scale. Quality of pain is described as sharp, Pain began about a week. Pain: Also complains of nausea. Neuro: Level of Consciousness is awake, alert, obeys commands, Oriented to person, place, time, situation, Appropriate for age. Cardiovascular: Heart tones S1 S2 present Capillary refill < 3 seconds Patient's skin is warm and dry. Cardiovascular: Denies chest pain. Respiratory: Airway is patent Respiratory effort is even, unlabored, Respiratory pattern is regular, symmetrical, Breath sounds are clear bilaterally. Respiratory: Denies shortness of breath. Respiratory: Trachea midline. GI: Abdomen is obese, Bowel sounds present X 4 quads. Abdomen is tender to palpation Reports epigastric pain, nausea, vomiting. GI: Reports history of irregular bowel movements. : No deficits noted. No signs and/or symptoms were reported regarding the genitourinary system. EENT: No deficits noted. No signs and/or symptoms were reported regarding the EENT system. Derm: Skin is intact, is healthy with good turgor, Skin is dry, Skin is normal, Skin temperature is warm. Musculoskeletal: Circulation, motion, and sensation intact. Range of motion: intact in all extremities. 20:42 Reassessment: Patient appears in no apparent distress at this time. No changes from vc1 previously documented assessment. Patient and/or family updated on plan of care and expected duration. Pain level reassessed. Patient is alert, oriented x 3, equal unlabored respirations, skin warm/dry/pink. 21:53 Reassessment: Patient appears in no apparent distress at this time. No changes from vc1 previously documented assessment. Patient and/or family updated on plan of care and expected duration. Pain level reassessed. Patient is alert, oriented x 3, equal unlabored respirations, skin warm/dry/pink. 22:32 Reassessment: Patient appears in no apparent distress at this time. Patient and/or vc1 family updated on plan of care and expected duration. Pain level reassessed. Patient is alert, oriented x 3, equal unlabored respirations, skin warm/dry/pink. Patient states symptoms have improved. Vital Signs: 19:28 BP 135 / 90; Pulse 104; Resp 16; Temp 98.3(TE); Pulse Ox 99% on R/A; Weight 117.93 kg jb4 (R); Height 5 ft. 5 in. (R); Pain 9/10; 19:42 BP 135 / 83 RA (auto/reg); Pulse 91; Resp 16 S; Temp 98.6(O); Pulse Ox 98% on R/A; sa1 Weight 117.93 kg (R); Height 5 ft. 5 in. (R); 20:30 BP 107 / 72; Pulse 88; Resp 16; Pulse Ox 99% ; vc1 21:53 BP 138 / 78; Pulse 84; Resp 16; Pulse Ox 100% ; vc1 22:32 BP 116 / 65; Pulse 80; Resp 18; Pulse Ox 100% ; vc1 19:42 Body Mass Index 43.27 (117.93 kg, 165.1 cm) sa1 19:28 Pain Scale: Adult jb4 ED Course: 19:16 Patient arrived in ED. rg4 19:24 Guilherme William PA is PHCP. cp 19:24 Guilherme Gooden MD is Attending Physician. cp 19:31 Triage completed. jb4 19:31 Arm band placed on right wrist. jb4 19:54 De Kern, LEIGH is Primary Nurse. jb4 19:54 Patient has correct armband on for positive identification. Bed in low position. Call jb4 light in reach. Pulse ox on. NIBP on. 20:05 Inserted saline lock: 20 gauge in left antecubital area, using aseptic technique. Blood sa1 collected. Flushed with 10 mL NS. 20:09 Initial lab(s) drawn, by me, sent to lab. sa1 20:43 Provided Education on: call light. vc1 21:50 CT Abd/Pelvis - IV Contrast Only In Process Unspecified. EDMS 22:51 Elian Woods MD is Referral Physician. cp 23:06 No provider procedures requiring assistance completed. IV discontinued, intact, vc1 bleeding controlled, No redness/swelling at site. Pressure dressing applied. Administered Medications: 20:04 Drug: NS 0.9% IV 1000 ml IV at 1 bolus Per protocol; to be given as a bolus over 60 jb4 minutes Route: IV; Rate: 1 bolus; Site: left antecubital; 21:00 Follow up: IV Status: Completed infusion; IV Intake: 1000ml vc1 20:37 Drug: Dicyclomine IM 20 mg IM once Route: IM; Site: left deltoid; jb4 23:05 Follow up: Response: No adverse reaction; Marked relief of symptoms vc1 20:37 Drug: metoCLOPramide IVP 10 mg IVP once; over 1 to 2 minutes Route: IVP; Site: left jb4 antecubital; 23:05 Follow up: Response: No adverse reaction; Marked relief of symptoms vc1 23:05 Drug: Ciprofloxacin PO 500 mg PO once Route: PO; vc1 23:06 Follow up: Response: Medication administered at discharge. vc1 Medication: 19:54 VIS not applicable for this client. jb4 Intake: 21:00 IV: 1000ml; Total: 1000ml. vc1 Outcome: 22:52 Discharge ordered by . cp 23:06 Discharged to home ambulatory, vc1 23:06 Condition: stable 23:06 Discharge instructions given to patient, Instructed on discharge instructions, follow up and referral plans. medication usage, Demonstrated understanding of instructions, follow-up care, medications, Prescriptions given X 2, 23:07 Patient left the ED. vc1 Signatures: Dispatcher [employer] EDMS Daniel Sommers em1 Guilherme William PA PA cp Garcia, Rubi rg4 De Kern, RN RN jb4 Steffanie Blas RN RN vc1 Sultan Ana sa1 Corrections: (The following items were deleted from the chart) 20:14 19:42 BP 135 / 83 Auto R Arm Regular; Pulse 91bpm; Resp 16bpm; Spontaneous; Pulse Ox sa1 98% RA; Temp 98.6F Oral; 117.93 kg Reported; Height 5 ft. 5 in. Reported; BMI: 43.2; em1
--- NOTE | 2024-08-28 22:53 | EDPHYS ---
Physician Documentation [facility] Name: Simon Sauceda Jr Age: 44 yrs Sex: Male : 1980 Arrival Date: 08/28/2024 Time: 19:14 Bed 5 Private MD: ED Physician Guilherme Gooden HPI: 08/28 19:55 This 44 yrs old Male presents to ER via Ambulatory with complaints of Abdominal Pain. cp 19:55 The patient presents with abdominal pain in the periumbilical area. mid abdomen. cp 19:55 Onset: The symptoms/episode began/occurred last week. The symptoms do not radiate. cp Associated signs and symptoms: Pertinent positives: constipation, Pertinent negatives: anorexia, chest pain, diarrhea, testicular pain, vomiting. The symptoms are described as burning. Severity of pain: in the emergency department the pain is unchanged despite home interventions. Historical: - Allergies: 19:31 NKA; jb4 - PMHx: 19:31 Anxiety; Asthma; Bipolar disorder; chronic back pain; Enlarged Heart; fatty liver; jb4 headache; Hypertensive disorder; Kidney stones; scoliosis; Anemia; Diabetes mellitus; - PSHx: 19:31 Cholecystectomy; kidney stone removal; jb4 - Immunization history:: Adult Immunizations up to date. - Infectious Disease History:: Denies. - Social history:: Smoking status: Reported history of juuling and/or vaping. ROS: 20:00 Constitutional: Negative for body aches, chills, fever, poor PO intake, cp 20:00 Cardiovascular: Negative for chest pain, edema, palpitations, cp 20:00 Eyes: Negative for injury, pain, redness, and discharge, cp 20:00 ENT: Negative for drainage from ear(s), ear pain, sore throat, difficulty swallowing, difficulty handling secretions, 20:00 Respiratory: Negative for cough, shortness of breath, wheezing, 20:00 Abdomen/GI: Positive for abdominal pain, nausea, constipation, Negative for vomiting, diarrhea, anorexia, black/tarry stool, rectal bleeding, 20:00 Back: Negative for pain at rest, pain with movement, 20:00 Neuro: Negative for altered mental status, dizziness, headache, weakness, 20:00 All other systems are negative, Exam: 20:05 Constitutional: The patient appears in no acute distress, alert, awake, non-toxic, well cp developed, well nourished, obese, 20:05 Head/Face: Normocephalic, atraumatic. cp 20:05 Eyes: Periorbital structures: appear normal, Conjunctiva: normal, no exudate, no injection, Sclera: no appreciated abnormality, Lids and lashes: appear normal, bilaterally, 20:05 ENT: External ear(s): are unremarkable, Nose: is normal, Mouth: Lips: moist, Oral mucosa: moist, Posterior pharynx: Airway: no evidence of obstruction, patent, 20:05 Chest/axilla: Inspection: normal, 20:05 Cardiovascular: Rate: tachycardic, Rhythm: regular, 20:05 Respiratory: the patient does not display signs of respiratory distress, Respirations: normal, no use of accessory muscles, no retractions, labored breathing, is not present, Breath sounds: are clear throughout, no decreased breath sounds, no stridor, no wheezing, 20:05 Abdomen/GI: Inspection: obese Bowel sounds: active, all quadrants, Palpation: soft, in all quadrants, moderate abdominal tenderness, in the mid abdomen, rebound tenderness, is not appreciated, involuntary guarding, is not appreciated, Hernia: not appreciated, 20:05 Back: pain, is absent, ROM is normal, 20:05 Neuro: Orientation: to person, place \T\ time. Mentation: is normal, Vital Signs: 19:28 BP 135 / 90; Pulse 104; Resp 16; Temp 98.3(TE); Pulse Ox 99% on R/A; Weight 117.93 kg jb4 (R); Height 5 ft. 5 in. (R); Pain 9/10; 19:42 BP 135 / 83 RA (auto/reg); Pulse 91; Resp 16 S; Temp 98.6(O); Pulse Ox 98% on R/A; sa1 Weight 117.93 kg (R); Height 5 ft. 5 in. (R); 20:30 BP 107 / 72; Pulse 88; Resp 16; Pulse Ox 99% ; vc1 21:53 BP 138 / 78; Pulse 84; Resp 16; Pulse Ox 100% ; vc1 22:32 BP 116 / 65; Pulse 80; Resp 18; Pulse Ox 100% ; vc1 19:42 Body Mass Index 43.27 (117.93 kg, 165.1 cm) sa1 19:28 Pain Scale: Adult jb4 MDM: 19:24 Medical Screening Exam initiated cp 20:00 Differential diagnosis: appendicitis, bowel obstruction, gastritis, non-specific abd cp pain, pancreatitis, Peptic Ulcer Disease, Perf. Duodenal Ulcer, Perf. Gastric Ulcer, Pyelonephritis, Ureterolithiasis, urinary tract infection, gastroparesis. 22:51 Data reviewed: vital signs, nurses notes, lab test result(s), radiologic studies, CT cp scan, and as a result, I will discharge patient. 22:51 I considered the following discharge prescriptions or medication management in the emergency department Medications were administered in the Emergency Department. See MAR. Care significantly affected by the following chronic conditions: Diabetes, Obesity. Special discussion: Based on the patient's Hx, exam, and Dx evaluation, there is no indication for emergent surgery or inpatient Tx. It is understood by the patient/guardian that if the Sx's persist or worsen they need to return immediately for re-evaluation. 08/28 19:49 Order name: Urinalysis W/Microscopic; Complete Time: 21:07 08/28 22:38 Interpretation: Normal except: UCLA Turbid; Urine SG > 1.030; UGLUC TRACE; UBILI 1+; cp UPROT TRACE. 08/28 19:49 Order name: CBC with Diff; Complete Time: 21:07 cp 08/28 22:38 Interpretation: Normal except: MIGUEL ÁNGEL% 88.7; LYM% 7.1; NEUT A 9.6. 08/28 19:49 Order name: CMP; Complete Time: 21:07 08/28 22:39 Interpretation: Normal except: GLUC 139; AST 46; ALT 134. 08/28 19:49 Order name: Lipase; Complete Time: 21:07 cp 08/28 20:22 Order name: Manual Differential; Complete Time: 21:07 EDMS 08/28 22:39 Interpretation: Normal except: BANDS [F] 10; LYM 11. 08/28 21:08 Order name: CT Abd/Pelvis - IV Contrast Only; Complete Time: 22:34 cp 08/28 22:36 Interpretation: Report reviewed. 08/28 19:49 Order name: IV Saline Lock; Complete Time: 20:04 08/28 19:49 Order name: Labs collected and sent; Complete Time: 20:05 cp Administered Medications: 20:04 Drug: NS 0.9% IV 1000 ml IV at 1 bolus Per protocol; to be given as a bolus over 60 jb4 minutes Route: IV; Rate: 1 bolus; Site: left antecubital; 21:00 Follow up: IV Status: Completed infusion; IV Intake: 1000ml vc1 20:37 Drug: Dicyclomine IM 20 mg IM once Route: IM; Site: left deltoid; jb4 23:05 Follow up: Response: No adverse reaction; Marked relief of symptoms vc1 20:37 Drug: metoCLOPramide IVP 10 mg IVP once; over 1 to 2 minutes Route: IVP; Site: left jb4 antecubital; 23:05 Follow up: Response: No adverse reaction; Marked relief of symptoms vc1 23:05 Drug: Ciprofloxacin PO 500 mg PO once Route: PO; vc1 23:06 Follow up: Response: Medication administered at discharge. vc1 Disposition: 08/29 02:09 Co-signature as Attending Physician, Guilherme Gooden MD I agree with the assessment and cathi plan of care. Disposition Summary: 08/28/24 22:52 Discharge Ordered Notes: Location: Home cp Problem: new cp Symptoms: have improved cp Condition: Stable cp Diagnosis - Abdominal pain, unspecified cp - Other abnormal findings in urine cp Followup: cp - With: Elian Woods MD - When: 1 week - Reason: Recheck today's complaints Discharge Instructions: - Discharge Summary Sheet cp - Abdominal Pain, Adult cp Forms: - Medication Reconciliation Form cp - Antibiotic Education cp - Prescription Opioid Use cp - Patient Portal Instructions cp - Leadership Thank You Letter cp Prescriptions: - Reglan 10 mg Oral Tablet - take 1 tablet ORAL route every 6 hours take 30 minutes before meals and at cp bedtime; 20 tablet; Refills: 0, Product Selection Permitted - Cipro 500 mg Oral Tablet - take 1 tablet ORAL route every 12 hours for 7 days; 14 tablet; Refills: 0, cp Product Selection Permitted Signatures: Dispatcher [employer] Guilherme Puckett MD MD cha Page, Corey, PA PA cp De Kern RN RN jb4 Steffanie Blas RN RN vc1 Corrections: (The following items were deleted from the chart) 08/28 22:46 22:46 Urine Culture+[id number].LAB.BRZ ordered. ALONLA PETER 04/07 17:50 08/28 19:55 The patient presents with abdominal pain cp cp
[2024-08-28] MEDS ORDERED: CIPROFLOXACIN HCL 500 MG TAB ONE (23:00)
[2024-08-28 23:26] VITALS: TEMP 98.6
[2024-08-28 23:28] VITALS: O2SAT 100
[2024-08-28 23:29] VITALS: BP 116/65
== END 2024-08-28 23:07 | disposition home or self-care (01) ==
LOC: ER 19:14
DX: R10.9 Unspecified abdominal pain (principal); R82.998 Other abnormal findings in urine; Z87.442 Personal history of urinary calculi
CPT/HCPCS: 96361; 85025; 81001; 36415; 83690; 80053; 74177; 96372; 96374; 99284; Q9967; J2765; J0500; J7030